=== PATIENT | female | born 1940 | race African-American/Black ===

== ENCOUNTER 2017-11-24 15:39 | Inpatient (IN) | payer OTHER, MEDICAID ==
[~2017-11-24] VITALS: Ht 160 cm; Wt 86.0 kg
[~2017-11-24 15:39] MED LIST: ASPI-1160; BENA20TA77 MT; CLON0.1T PO; DILT90TA2 PO; DIVA500T3 PO; DOXE50CA4 PO; FURO-151; LEVO50TA8 MT; METF500T6 PO; NAPR-681 PO; RANI150T7 PO; RISP2TAB22 PO
[2017-11-24 18:16] LABS: BASOPHILS % 0.6 % (0.0-2.0); EOSINOPHILS % 0.8 % (0.0-5.0); HEMATOCRIT. 28.6 % (36.0-48.0); HEMOGLOBIN. 9.4 g/dL (12.0-16.0); LYMPHOCYTES % 12.4 % (20.0-50.0); MEAN CORPUSCULAR HEMOGLOBIN 29.1 pg (28.0-32.0); MEAN CORPUSCULAR VOLUME 88.2 fL (81.0-99.0); MEAN PLATELET VOLUME 10.5 fl (7.4-10.4); MONOCYTES % 8.4 % (2.0-8.0); NEUTROPHILS % 77.8 % (40.0-76.0); PLATELET 157 x1000/uL (130-400); RED BLOOD CELL COUNT 3.24 mill/uL (4.2-5.4); RED CELL DISTRIBUTION WIDTH 15.1 % (11.6-14.6)
[2017-11-24 18:20] LABS: CHLORIDE 106 mEq/L (98-107)
[2017-11-24] MEDS ORDERED: HYDRALAZINE HCL 50MG TABLET PO ONE (19:45)
[2017-11-24] MEDS: HYDRALAZINE HCL 50MG TABLET PO NR ×5 (20:05→20:37)
[2017-11-24] MEDS ORDERED: IPRATROPIUM/ALBUTEROL 0.5-3(2.5)MG/3ML NEB INH PRN (20:45)
[2017-11-24] MEDS ORDERED: HYDROCODONE/ACETAMINOPHEN 5/325MG TABLET PO PRN (20:45)
[2017-11-24] MEDS ORDERED: DOCUSATE SODIUM 100MG CAPSULE PO PRN (20:45)
[2017-11-24] MEDS ORDERED: ACETAMINOPHEN 325MG TABLET PO PRN (20:45)
[2017-11-24] MEDS ORDERED: ONDANSETRON HCL 4MG/2ML INJ IV PRN (20:45)
[2017-11-24 23:50] VITALS: BP 162/77
[2017-11-25] VITALS: BP 162/77
[2017-11-25] MEDS: SODIUM CHLORIDE 0.45% 1,000 ML IV SCH ×2 (00:42→12:20)
[2017-11-25 01:17] LABS: CREATINE KINASE MB FRACTION 5.7 ng/mL (0.5-3.6)
[2017-11-25 04:00] VITALS: BP_SYST 182; BP_SYST 192; BP_DIAS 97; BP_DIAS 99
[2017-11-25] MEDS: CLONIDINE 0.1MG TABLET PO PRN (05:12)
[2017-11-25 06:24] LABS: BASOPHILS % 0.9 % (0.0-2.0); EOSINOPHILS % 2.4 % (0.0-5.0); HEMOGLOBIN. 9.7 g/dL (12.0-16.0); LYMPHOCYTES % 19.3 % (20.0-50.0); MEAN CORPUSCULAR HEMOGLOBIN 29.5 pg (28.0-32.0); MEAN CORPUSCULAR VOLUME 87.7 fL (81.0-99.0); MEAN PLATELET VOLUME 10.7 fl (7.4-10.4); MONOCYTES % 10.6 % (2.0-8.0); NEUTROPHILS % 66.8 % (40.0-76.0); PLATELET 170 x1000/uL (130-400); RED BLOOD CELL COUNT 3.31 mill/uL (4.2-5.4); RED CELL DISTRIBUTION WIDTH 15.2 % (11.6-14.6)
[2017-11-25] MEDS ORDERED: FENTANYL CITRATE/PF 50MCG/ML 2ML VIAL ONE (07:40)
[2017-11-25 07:54] VITALS: BP 176/88
[2017-11-25 07:55] VITALS: BP 178/87
[2017-11-25 08:10] LABS: CREATINE KINASE MB FRACTION 5.4 ng/mL (0.5-3.6)
[2017-11-25] MEDS: CLONIDINE 0.1MG TABLET PO SCH ×2 (08:43→21:21)
[2017-11-25] MEDS: HEPARIN 5000 UNITS/ML VIAL SUBCUT SCH ×2 (08:43→21:21)
[2017-11-25] MEDS: RISPERIDONE 1MG TABLET PO SCH ×2 (08:44→21:21)
[2017-11-25] MEDS: DILTIAZEM HCL 90MG TABLET PO SCH ×3 (08:44→21:28)
[2017-11-25] MEDS: LEVOTHYROXINE SODIUM 50MCG TABLET PO SCH (08:44)
[2017-11-25] MEDS: DIVALPROEX SODIUM 500MG DR TABLET PO SCH ×2 (08:47→18:00)
[2017-11-25 11:52] VITALS: BP 154/73
[2017-11-25 14:26] LABS: CLARITY URINE CLOUDY (CLEAR); COLOR URINE YELLOW (YELLOW); KETONES URINE NEGATIVE (NEGATIVE); LEUKOCYTE ESTERASE URINE TRACE (NEGATIVE); NITRITE URINE NEGATIVE (NEGATIVE); OCCULT BLOOD URINE NEGATIVE (NEGATIVE); PROTEIN URINE NEGATIVE (NEGATIVE); SPECIFIC GRAVITY URINE 1.009 (1.005-1.030); UROBILINOGEN URINE 0.2 E.U./dL (0.2-1.0)
[2017-11-25] MEDS ORDERED: LORAZEPAM 2MG/ML CPJ IV PRN (14:30)
[2017-11-25] MEDS ORDERED: HYDROCODONE/ACETAMINOPHEN 10/325MG TABLET PO PRN (14:30)
[2017-11-25] MEDS ORDERED: ACETAMINOPHEN 650MG SUPP PR PRN (14:30)
[2017-11-25] MEDS ORDERED: ACETAMINOPHEN 650MG/20.3ML UDC GT PRN (14:30)
[2017-11-25] MEDS ORDERED: MAGNESIUM/ALUMINUM HYDROXIDE/SIMETHICONE 30ML UDC PO PRN (14:30)
[2017-11-25] MEDS ORDERED: ONDANSETRON HCL 4MG/2ML INJ IV PRN (14:30)
[2017-11-25] MEDS ORDERED: HYDROCODONE/ACETAMINOPHEN 5/325MG TABLET PO PRN (14:30)
[2017-11-25] MEDS ORDERED: DEXTROSE 50% WATER 50ML SYRINGE IV PRN (14:30)
[2017-11-25] MEDS ORDERED: ACETAMINOPHEN 325MG TABLET PO PRN (14:30)
[2017-11-25] MEDS ORDERED: LEVOTHYROXINE SODIUM 50MCG TABLET PO SCH (14:45)
[2017-11-25 14:55] LABS: BG BASE EXCESS 0.9 mmol/L (-2.0-2.0); BG CARBOXYHEMOGLOBIN 0.2 % (0.5-1.5); BG DEOXYHEMOGLOBIN 6.7 % (0.0-5.0); BG FRACTION INSPIRED OXYGEN 21; BG HCO3 ACT 25.4 mmol/L (22.0-26.0); BG METHEMOGLOBIN 0.4 % (0.0-1.5); BG OXYGEN SATURATION 93.3 % (92.0-98.5); BG OXYHEMOGLOBIN 92.7 % (94.0-97.0); BG PCO2 40.1 mmHg (35.0-45.0); BG PH 7.419 (7.350-7.450); BG PO2 71.3 mmHg (75.0-100.0); BG SAMPLE SITE LEFT BRACHIAL; BG TOTAL HEMOGLOBIN 10.6 g/dL (12.0-18.0); BG VENT MODE ROOM AIR
[2017-11-25 15:04] LABS: *AMPHETAMINES SCREEN URINE NEGATIVE (NEGATIVE); *BARBITURATES SCREEN URINE NEGATIVE (NEGATIVE); *BENZODIAZEPINES SCREEN URINE NEGATIVE (NEGATIVE)
[2017-11-25 15:05] LABS: *COCAINE SCREEN URINE NEGATIVE (NEGATIVE); CANNABINOID URINE SCREEN NEGATIVE (NEGATIVE); METHADONE URINE SCREEN NEGATIVE (NEGATIVE); OPIATES URINE SCREEN NEGATIVE (NEGATIVE)
[2017-11-25 15:06] LABS: PHENCYCLIDINE URINE SCREEN NEGATIVE (NEGATIVE)
[2017-11-25] MEDS ORDERED: ASPI-1159 MT (15:28)
[2017-11-25 16:08] VITALS: BP 157/72
[2017-11-25] MEDS: INSULIN LISPRO 100 UNITS/ML SUBCUT SCH ×2 (17:35→21:24)
[2017-11-25] MEDS: BLOOD SUGAR DIAGNOSTIC STRIP TEST SCH ×2 (17:35→21:24)
[2017-11-25] MEDS: ASPIRIN 81MG TABLET PO SCH (18:00)
[2017-11-26] VITALS (10 sets, daily range): BP systolic 122–173; BP diastolic 67–99
[2017-11-26 00:39] LABS: CREATINE KINASE MB FRACTION 2.4 ng/mL (0.5-3.6)
[2017-11-26] MEDS: SODIUM CHLORIDE 0.45% 1,000 ML IV SCH ×2 (02:47→14:25)
[2017-11-26] MEDS: DILTIAZEM HCL 90MG TABLET PO SCH ×3 (06:36→21:14)
[2017-11-26] MEDS: LEVOTHYROXINE SODIUM 50MCG TABLET PO SCH (06:36)
[2017-11-26] MEDS: BLOOD SUGAR DIAGNOSTIC STRIP TEST SCH ×4 (07:20→21:22)
[2017-11-26] MEDS: INSULIN LISPRO 100 UNITS/ML SUBCUT SCH ×4 (07:50→21:00)
[2017-11-26 08:08] LABS: BASOPHILS % 0.6 % (0.0-2.0); HEMATOCRIT. 28.2 % (36.0-48.0); HEMOGLOBIN. 9.6 g/dL (12.0-16.0); LYMPHOCYTES % 21.8 % (20.0-50.0); MEAN CORPUSCULAR HEMOGLOBIN 29.4 pg (28.0-32.0); MEAN CORPUSCULAR VOLUME 86.8 fL (81.0-99.0); MEAN PLATELET VOLUME 10.4 fl (7.4-10.4); MONOCYTES % 9.7 % (2.0-8.0); NEUTROPHILS % 64.9 % (40.0-76.0); PLATELET 151 x1000/uL (130-400); RED BLOOD CELL COUNT 3.25 mill/uL (4.2-5.4); RED CELL DISTRIBUTION WIDTH 15.2 % (11.6-14.6)
[2017-11-26 09:41] LABS: AMMONIA 25 uMol/L (<32)
[2017-11-26 09:58] LABS: PHOSPHORUS 3.2 mg/dL (2.5-4.9)
[2017-11-26] MEDS: DIVALPROEX SODIUM 500MG DR TABLET PO SCH ×2 (10:21→19:14)
[2017-11-26] MEDS: HEPARIN 5000 UNITS/ML VIAL SUBCUT SCH ×2 (10:21→21:15)
[2017-11-26] MEDS: RISPERIDONE 1MG TABLET PO SCH ×2 (10:21→21:13)
[2017-11-26] MEDS: CLONIDINE 0.1MG TABLET PO SCH ×2 (10:22→21:14)
[2017-11-26] MEDS: ASPIRIN 81MG TABLET PO SCH (10:22)
[2017-11-26 12:37] LABS: T4 FREE 1.23 ng/dL (0.76-1.46)
[2017-11-26] MEDS ORDERED: SODIUM CHLORIDE 0.9% 1,000 ML IV SCH (15:15)
[2017-11-26 17:31] LABS: CREATINE KINASE MB FRACTION 2.2 ng/mL (0.5-3.6)
[2017-11-26] MEDS: CARVEDILOL 3.125 MG TABLET PO SCH (21:14)
[2017-11-27] VITALS (10 sets, daily range): BP systolic 122–159; BP diastolic 60–77
[2017-11-27 01:26] LABS: CREATINE KINASE MB FRACTION 1.7 ng/mL (0.5-3.6)
[2017-11-27] MEDS: DILTIAZEM HCL 90MG TABLET PO SCH ×3 (05:47→22:00)
[2017-11-27] MEDS: LEVOTHYROXINE SODIUM 50MCG TABLET PO SCH (05:47)
[2017-11-27] MEDS: INSULIN LISPRO 100 UNITS/ML SUBCUT SCH ×4 (05:51→21:00)
[2017-11-27] MEDS: BLOOD SUGAR DIAGNOSTIC STRIP TEST SCH ×4 (05:51→21:00)
[2017-11-27] MEDS: ASPIRIN 81MG TABLET PO SCH (10:00)
[2017-11-27] MEDS: CLONIDINE 0.1MG TABLET PO SCH ×2 (10:01→21:52)
[2017-11-27] MEDS: CARVEDILOL 3.125 MG TABLET PO SCH ×2 (10:02→21:53)
[2017-11-27] MEDS: DIVALPROEX SODIUM 500MG DR TABLET PO SCH ×2 (10:02→17:23)
[2017-11-27] MEDS: RISPERIDONE 1MG TABLET PO SCH ×2 (10:02→21:53)
[2017-11-27] MEDS: HEPARIN 5000 UNITS/ML VIAL SUBCUT SCH ×2 (10:05→21:59)
[2017-11-27 18:20] LABS: AMMONIA 20 uMol/L (<32)
[2017-11-27 18:21] LABS: CREATINE KINASE MB FRACTION 1.1 ng/mL (0.5-3.6)
[2017-11-28] VITALS (10 sets, daily range): BP systolic 142–176; BP diastolic 62–77
[2017-11-28] MEDS: BLOOD SUGAR DIAGNOSTIC STRIP TEST SCH ×4 (07:20→20:57)
[2017-11-28 07:29] LABS: AMMONIA 11 uMol/L (<32)
[2017-11-28 07:41] LABS: BASOPHILS % 0.3 % (0.0-2.0); EOSINOPHILS % 2.5 % (0.0-5.0); HEMATOCRIT. 28.8 % (36.0-48.0); HEMOGLOBIN. 9.6 g/dL (12.0-16.0); LYMPHOCYTES % 20.1 % (20.0-50.0); MEAN CORPUSCULAR HEMOGLOBIN 28.9 pg (28.0-32.0); MEAN CORPUSCULAR VOLUME 86.9 fL (81.0-99.0); MEAN PLATELET VOLUME 10.8 fl (7.4-10.4); MONOCYTES % 10.1 % (2.0-8.0); PLATELET 159 x1000/uL (130-400); RED BLOOD CELL COUNT 3.31 mill/uL (4.2-5.4); RED CELL DISTRIBUTION WIDTH 15.7 % (11.6-14.6)
[2017-11-28] MEDS: INSULIN LISPRO 100 UNITS/ML SUBCUT SCH ×4 (07:50→20:58)
[2017-11-28] MEDS: DIVALPROEX SODIUM 500MG DR TABLET PO SCH ×2 (10:01→17:22)
[2017-11-28] MEDS: RISPERIDONE 1MG TABLET PO SCH ×2 (10:01→20:57)
[2017-11-28] MEDS: LEVOTHYROXINE SODIUM 50MCG TABLET PO SCH (10:02)
[2017-11-28] MEDS: CLONIDINE 0.1MG TABLET PO SCH ×2 (10:02→20:57)
[2017-11-28] MEDS: CARVEDILOL 3.125 MG TABLET PO SCH ×2 (10:03→20:57)
[2017-11-28] MEDS: ASPIRIN 81MG TABLET PO SCH (10:03)
[2017-11-28] MEDS: HEPARIN 5000 UNITS/ML VIAL SUBCUT SCH ×2 (10:05→20:57)
[2017-11-28] MEDS: DEXT 5%/0.45% NACL 1000ML 1,000 ML IV SCH (15:41)
[2017-11-28] MEDS: DILTIAZEM HCL 90MG TABLET PO SCH ×2 (15:53→20:57)
[2017-11-29] VITALS: BP_SYST 126; BP_SYST 150; BP_DIAS 64; BP_DIAS 70
[2017-11-29 04:00] VITALS: BP 110/60
[2017-11-29] MEDS: DEXT 5%/0.45% NACL 1000ML 1,000 ML IV SCH ×2 (06:58→22:27)
[2017-11-29] MEDS: DILTIAZEM HCL 90MG TABLET PO SCH ×3 (06:59→21:33)
[2017-11-29] MEDS: BLOOD SUGAR DIAGNOSTIC STRIP TEST SCH ×4 (06:59→21:34)
[2017-11-29] MEDS: LEVOTHYROXINE SODIUM 50MCG TABLET PO SCH (06:59)
[2017-11-29] MEDS: INSULIN LISPRO 100 UNITS/ML SUBCUT SCH ×4 (07:50→21:45)
[2017-11-29 08:00] VITALS: BP 171/88
[2017-11-29] MEDS: CARVEDILOL 3.125 MG TABLET PO SCH ×2 (08:32→21:33)
[2017-11-29] MEDS: DIVALPROEX SODIUM 500MG DR TABLET PO SCH ×2 (08:32→18:04)
[2017-11-29] MEDS: ASPIRIN 81MG TABLET PO SCH (08:32)
[2017-11-29] MEDS: CLONIDINE 0.1MG TABLET PO SCH ×2 (08:32→21:34)
[2017-11-29] MEDS: RISPERIDONE 1MG TABLET PO SCH ×2 (08:35→21:34)
[2017-11-29] MEDS: HEPARIN 5000 UNITS/ML VIAL SUBCUT SCH ×2 (08:39→21:37)
[2017-11-29 10:31] LABS: BASOPHILS % 0.3 % (0.0-2.0); EOSINOPHILS % 2.3 % (0.0-5.0); HEMATOCRIT. 30.2 % (36.0-48.0); LYMPHOCYTES % 19.1 % (20.0-50.0); MEAN CORPUSCULAR HEMOGLOBIN 29.3 pg (28.0-32.0); MEAN CORPUSCULAR VOLUME 88.3 fL (81.0-99.0); MEAN PLATELET VOLUME 10.9 fl (7.4-10.4); NEUTROPHILS % 65.3 % (40.0-76.0); PLATELET 165 x1000/uL (130-400); RED BLOOD CELL COUNT 3.42 mill/uL (4.2-5.4); RED CELL DISTRIBUTION WIDTH 15.4 % (11.6-14.6)
[2017-11-29 11:20] LABS: PHOSPHORUS 3.2 mg/dL (2.5-4.9)
[2017-11-29 12:00] VITALS: BP_SYST 161; BP_SYST 163; BP_SYST 167; BP_DIAS 70; BP_DIAS 86; BP_DIAS 87
[2017-11-29 16:00] VITALS: BP 176/71
[2017-11-29 19:50] VITALS: BP 168/71
[2017-11-29] MEDS ORDERED: MAGNESIUM SULFATE 2 GM in SODIUM CHLORIDE 0.9% 100 ML IV NR (20:00)
[2017-11-30] VITALS (9 sets, daily range): BP systolic 132–175; BP diastolic 67–87
[2017-11-30] MEDS: LEVOTHYROXINE SODIUM 50MCG TABLET PO SCH (06:25)
[2017-11-30] MEDS: DILTIAZEM HCL 90MG TABLET PO SCH ×2 (06:26→14:55)
[2017-11-30] MEDS: BLOOD SUGAR DIAGNOSTIC STRIP TEST SCH ×3 (06:26→17:09)
[2017-11-30] MEDS: INSULIN LISPRO 100 UNITS/ML SUBCUT SCH ×3 (07:16→17:09)
[2017-11-30] MEDS: HEPARIN 5000 UNITS/ML VIAL SUBCUT SCH (07:42)
[2017-11-30] MEDS: ASPIRIN 81MG TABLET PO SCH (07:42)
[2017-11-30] MEDS: CARVEDILOL 3.125 MG TABLET PO SCH (07:42)
[2017-11-30] MEDS: CLONIDINE 0.1MG TABLET PO SCH (07:43)
[2017-11-30] MEDS: DIVALPROEX SODIUM 500MG DR TABLET PO SCH ×2 (07:43→17:06)
[2017-11-30] MEDS: RISPERIDONE 1MG TABLET PO SCH (07:43)
[2017-11-30 09:06] LABS: COMPLEMENT C3 101 mg/dL (82-167)
[2017-11-30 11:17] LABS: BASOPHILS % 0.5 % (0.0-2.0); EOSINOPHILS % 3.2 % (0.0-5.0); HEMATOCRIT. 26.3 % (36.0-48.0); LYMPHOCYTES % 19.5 % (20.0-50.0); MEAN CORPUSCULAR HEMOGLOBIN 29.7 pg (28.0-32.0); MEAN CORPUSCULAR VOLUME 87.1 fL (81.0-99.0); MEAN PLATELET VOLUME 10.9 fl (7.4-10.4); MONOCYTES % 13.3 % (2.0-8.0); NEUTROPHILS % 63.5 % (40.0-76.0); PLATELET 162 x1000/uL (130-400); RED BLOOD CELL COUNT 3.02 mill/uL (4.2-5.4); RED CELL DISTRIBUTION WIDTH 15.2 % (11.6-14.6)
[2017-11-30 12:49] LABS: PHOSPHORUS 2.9 mg/dL (2.5-4.9)
[2017-11-30] MEDS ORDERED: DILT90TA2 PO (14:19)
[2017-11-30] MEDS ORDERED: ASPI-1160 PO (14:19)
[2017-11-30] MEDS ORDERED: DIVA-18 PO (14:19)
[2017-11-30] MEDS ORDERED: COR3 PO (14:19)
[2017-11-30] MEDS ORDERED: RISP1 PO (14:19)
[2017-11-30] MEDS ORDERED: LEVO50TA8 PO (14:19)
[2017-11-30] MEDS: CLONIDINE 0.1MG TABLET PO PRN (17:06)
[2017-11-30 17:10] LABS: ANTI-NUCLEAR ANTIBODIES DIRECT Negative (Negative)
== END 2017-11-30 19:27 | disposition home health service (06) | DRG 70 ==
LOC: ER 15:39 → 6WST 18:57 → EDBEDREQ 19:03 → EDBEDREQTM 19:03 → ENRESERV 21:05
PROVIDERS: ADMIT Internal Medicine; ATTEND Internal Medicine
DX: G93.41 Metabolic encephalopathy (principal); N17.0 Acute kidney failure with tubular necrosis; E46 Unspecified protein-calorie malnutrition; M62.82 Rhabdomyolysis; J98.11 Atelectasis; G90.8 Other disorders of autonomic nervous system; N18.9 Chronic kidney disease, unspecified; J44.9 Chronic obstructive pulmonary disease, unspecified; D64.9 Anemia, unspecified; E03.9 Hypothyroidism, unspecified; E11.22 Type 2 diabetes mellitus with diabetic chronic kidney disease; F41.9 Anxiety disorder, unspecified; E78.5 Hyperlipidemia, unspecified; G20 Parkinson's disease; G40.909 Epilepsy, unspecified, not intractable, without status epilepticus; I12.9 Hypertensive chronic kidney disease with stage 1 through stage 4 chronic kidney disease, or unspecified chronic kidney disease; I25.10 Atherosclerotic heart disease of native coronary artery without angina pectoris; Z79.84 Long term (current) use of oral hypoglycemic drugs; Z86.73 Personal history of transient ischemic attack (TIA), and cerebral infarction without residual deficits; Z79.82 Long term (current) use of aspirin; Z79.899 Other long term (current) drug therapy; Z68.33 Body mass index [BMI] 33.0-33.9, adult
CPT/HCPCS: 36415; 36600; 70450; 70551; 71045; 76770; 78582; 80048; 80053; 80061; 80165; 80305; 81003; 82140; 82375; 82550; 82553; 82805; 82962; 83036; 83735; 83880; 84100; 84439; 84443; 84484; 85025; 85379; 86038; 86160; 92610; 93005; 93306; 93880; 93970; 97116; 97162; 97166; 97530; 97535; 99285; A9558; C1893; J1644; J1815; J3010; J3475; J3490; J7050

== ENCOUNTER 2018-01-11 15:22 | Inpatient (IN) | payer OTHER, MEDICAID ==
[~2018-01-11] VITALS: Ht 157.5 cm; Wt 71.2 kg
[~2018-01-11 15:22] MED LIST changes: -ASPI-1160; +ASPI-1160 PO; -BENA20TA77 MT; -CLON0.1T PO; +COR3 PO; +DIVA-18 PO; -DIVA500T3 PO; -DOXE50CA4 PO; -FURO-151; -LEVO50TA8 MT; +LEVO50TA8 PO; -METF500T6 PO; -NAPR-681 PO; -RANI150T7 PO; +RISP1 PO; -RISP2TAB22 PO
[2018-01-11] MEDS ORDERED: SODIUM CHLORIDE 0.9% 1,000 ML IV ONE (15:35)
[2018-01-11 16:22] LABS: BG BASE EXCESS -2.2 mmol/L (-2.0-2.0); BG DEOXYHEMOGLOBIN 5.6 % (0.0-5.0); BG FRACTION INSPIRED OXYGEN 21; BG HCO3 ACT 22.1 mmol/L (22.0-26.0); BG METHEMOGLOBIN 0.6 % (0.0-1.5); BG OXYGEN SATURATION 94.4 % (92.0-98.5); BG OXYHEMOGLOBIN 93.8 % (94.0-97.0); BG PCO2 36.2 mmHg (35.0-45.0); BG PH 7.403 (7.350-7.450); BG SAMPLE SITE RIGHT BRACHIAL; BG TOTAL HEMOGLOBIN 11.8 g/dL (12.0-18.0); BG VENT MODE ROOM AIR
[2018-01-11 16:55] LABS: BASOPHILS % 0.7 % (0.0-2.0); EOSINOPHILS % 1.5 % (0.0-5.0); HEMATOCRIT. 34.4 % (36.0-48.0); HEMOGLOBIN. 11.1 g/dL (12.0-16.0); MEAN CORPUSCULAR HEMOGLOBIN 28.9 pg (28.0-32.0); MEAN CORPUSCULAR VOLUME 89.5 fL (81.0-99.0); MEAN PLATELET VOLUME 10.5 fl (7.4-10.4); NEUTROPHILS % 64.8 % (40.0-76.0); PLATELET 230 x1000/uL (130-400); RED BLOOD CELL COUNT 3.84 mill/uL (4.2-5.4); RED CELL DISTRIBUTION WIDTH 15.7 % (11.6-14.6)
[2018-01-11 17:01] LABS: INR 1.1; PROTHROMBIN TIME 10.7 sec (9.1-11.1)
[2018-01-11 17:05] LABS: CHLORIDE 111 mEq/L (98-107)
[2018-01-11 17:09] LABS: CLARITY URINE TURBID (CLEAR); COLOR URINE DARK YELLOW (YELLOW); KETONES URINE TRACE (NEGATIVE); LEUKOCYTE ESTERASE URINE 3+ (NEGATIVE); NITRITE URINE POSITIVE (NEGATIVE); OCCULT BLOOD URINE 3+ (NEGATIVE); PH URINE 5.5 (4.5-8.0); PROTEIN URINE 2+ (NEGATIVE); SPECIFIC GRAVITY URINE 1.016 (1.005-1.030); UROBILINOGEN URINE 0.2 E.U./dL (0.2-1.0)
[2018-01-11] MEDS ORDERED: CEFTRIAXONE 2 G PREMIX 50 ML IV ONE (18:45)
[2018-01-11] MEDS: HYDRALAZINE 20MG/ML VIAL IV PRN (23:24)
[2018-01-12] VITALS (10 sets, daily range): BP systolic 108–200; BP diastolic 52–97
[2018-01-12] MEDS ORDERED: HYDROCODONE/ACETAMINOPHEN 5/325MG TABLET PO PRN (01:00)
[2018-01-12] MEDS ORDERED: DEXTROSE 50% WATER 50ML SYRINGE IV PRN (01:00)
[2018-01-12] MEDS ORDERED: GUAIFENESIN 200MG/10ML SUGAR FREE UDC PO PRN (01:00)
[2018-01-12] MEDS ORDERED: ONDANSETRON HCL 4MG/2ML INJ IV PRN (01:00)
[2018-01-12] MEDS ORDERED: IPRATROPIUM/ALBUTEROL 0.5-3(2.5)MG/3ML NEB HHN PRN (01:00)
[2018-01-12] MEDS ORDERED: ACETAMINOPHEN 325MG TABLET PO PRN (01:00)
[2018-01-12] MEDS ORDERED: CLONIDINE 0.1MG TABLET PO PRN (01:30)
[2018-01-12] MEDS ORDERED: MAGN30OR PO (01:39)
[2018-01-12] MEDS ORDERED: GUAI10LI9 PO (01:39)
[2018-01-12] MEDS ORDERED: ASA5EC PO (01:39)
[2018-01-12] MEDS ORDERED: ONDA4SOL2 PO (01:39)
[2018-01-12] MEDS ORDERED: FAMO-135 PO (01:39)
[2018-01-12] MEDS ORDERED: CLON-457 PO (01:39)
[2018-01-12] MEDS ORDERED: DOCU-150 PO (01:39)
[2018-01-12] MEDS ORDERED: CLON0.2T PO (01:39)
[2018-01-12] MEDS ORDERED: HYDR-4134 PO (01:39)
[2018-01-12] MEDS ORDERED: ACET-2178 PO (01:39)
[2018-01-12] MEDS ORDERED: TRAM50TA3 PO (01:39)
[2018-01-12] MEDS ORDERED: NITR0.4T SL (01:39)
[2018-01-12] MEDS ORDERED: LISI-604 PO (01:39)
[2018-01-12] MEDS ORDERED: OR220 PO (01:39)
[2018-01-12] MEDS: BLOOD SUGAR DIAGNOSTIC STRIP TEST SCH ×4 (06:22→20:44)
[2018-01-12 06:43] LABS: BASOPHILS % 0.4 % (0.0-2.0); EOSINOPHILS % 0.2 % (0.0-5.0); HEMATOCRIT. 33.3 % (36.0-48.0); LYMPHOCYTES % 12.3 % (20.0-50.0); MEAN CORPUSCULAR HEMOGLOBIN 29.3 pg (28.0-32.0); MEAN CORPUSCULAR VOLUME 88.8 fL (81.0-99.0); MEAN PLATELET VOLUME 10.6 fl (7.4-10.4); MONOCYTES % 5.1 % (2.0-8.0); PLATELET 241 x1000/uL (130-400); RED BLOOD CELL COUNT 3.75 mill/uL (4.2-5.4); RED CELL DISTRIBUTION WIDTH 15.1 % (11.6-14.6)
[2018-01-12] MEDS: INSULIN LISPRO 100 UNITS/ML SUBCUT SCH ×4 (08:02→20:44)
[2018-01-12] MEDS: HYDRALAZINE 20MG/ML VIAL IV PRN ×2 (08:19→18:44)
[2018-01-12] MEDS ORDERED: HYDRALAZINE HCL 25MG TABLET PO SCH (09:00)
[2018-01-12] MEDS: FAMOTIDINE 20MG TABLET PO SCH (09:00)
[2018-01-12] MEDS ORDERED: LISINOPRIL 20MG TABLET PO SCH (09:00)
[2018-01-12] MEDS: ZINC SULFATE 220 MG ( 50 ) CAPSULE PO SCH (11:44)
[2018-01-12] MEDS: CARVEDILOL 3.125 MG TABLET PO SCH ×2 (11:44→20:44)
[2018-01-12] MEDS: DOCUSATE SODIUM 100MG CAPSULE PO SCH ×2 (11:45→18:44)
[2018-01-12] MEDS: ASPIRIN 325MG EC TABLET PO SCH (11:45)
[2018-01-12] MEDS: AMLODIPINE 10MG TABLET PO SCH (11:45)
[2018-01-12] MEDS: HYDRALAZINE HCL 50MG TABLET PO SCH ×2 (11:45→20:44)
[2018-01-12] MEDS: LEVOTHYROXINE SODIUM 50MCG TABLET PO SCH (11:47)
[2018-01-12] MEDS: CEFTRIAXONE 1 G PREMIX 50 ML IV SCH (20:37)
[2018-01-12] MEDS: ENOXAPARIN 30MG/0.3ML SYR SUBCUT SCH (20:44)
[2018-01-13] VITALS (7 sets, daily range): BP systolic 133–211; BP diastolic 61–93
[2018-01-13 05:15] LABS: BASOPHILS % 0.6 % (0.0-2.0); EOSINOPHILS % 0.5 % (0.0-5.0); HEMATOCRIT. 35.5 % (36.0-48.0); HEMOGLOBIN. 11.7 g/dL (12.0-16.0); LYMPHOCYTES % 16.3 % (20.0-50.0); MEAN CORPUSCULAR HEMOGLOBIN 29.4 pg (28.0-32.0); MEAN CORPUSCULAR VOLUME 89.5 fL (81.0-99.0); MEAN PLATELET VOLUME 10.6 fl (7.4-10.4); MONOCYTES % 8.6 % (2.0-8.0); PLATELET 263 x1000/uL (130-400); RED BLOOD CELL COUNT 3.97 mill/uL (4.2-5.4); RED CELL DISTRIBUTION WIDTH 15.5 % (11.6-14.6)
[2018-01-13] MEDS: HYDRALAZINE 20MG/ML VIAL IV PRN ×2 (05:31→23:00)
[2018-01-13] MEDS: BLOOD SUGAR DIAGNOSTIC STRIP TEST SCH ×4 (07:40→20:48)
[2018-01-13] MEDS: INSULIN LISPRO 100 UNITS/ML SUBCUT SCH ×4 (08:10→21:31)
[2018-01-13] MEDS: LEVOTHYROXINE SODIUM 50MCG TABLET PO SCH (08:40)
[2018-01-13] MEDS: DOCUSATE SODIUM 100MG CAPSULE PO SCH ×2 (08:58→17:49)
[2018-01-13] MEDS: ZINC SULFATE 220 MG ( 50 ) CAPSULE PO SCH (08:58)
[2018-01-13] MEDS: CARVEDILOL 3.125 MG TABLET PO SCH ×2 (08:59→20:39)
[2018-01-13] MEDS: HYDRALAZINE HCL 50MG TABLET PO SCH ×2 (09:00→20:37)
[2018-01-13] MEDS: ASPIRIN 325MG EC TABLET PO SCH (09:00)
[2018-01-13] MEDS: FAMOTIDINE 20MG TABLET PO SCH (09:00)
[2018-01-13] MEDS: AMLODIPINE 10MG TABLET PO SCH (09:00)
[2018-01-13] MEDS: CEFTRIAXONE 1 G PREMIX 50 ML IV SCH (17:49)
[2018-01-13] MEDS: ENOXAPARIN 30MG/0.3ML SYR SUBCUT SCH (20:41)
[2018-01-13] MEDS ORDERED: HYDRALAZINE 20MG/ML VIAL IV PRN (22:45)
[2018-01-13] MEDS: DEXT 5%/0.45% NACL KCL 20MEQ/L 1,000 ML IV SCH (23:50)
[2018-01-14] VITALS: BP 136/59
[2018-01-14 04:00] VITALS: BP 167/84
[2018-01-14] MEDS: BLOOD SUGAR DIAGNOSTIC STRIP TEST SCH ×4 (06:43→21:00)
[2018-01-14 07:50] LABS: BASOPHILS % 0.6 % (0.0-2.0); EOSINOPHILS % 0.8 % (0.0-5.0); HEMOGLOBIN. 11.1 g/dL (12.0-16.0); LYMPHOCYTES % 17.9 % (20.0-50.0); MEAN CORPUSCULAR HEMOGLOBIN 29.2 pg (28.0-32.0); MEAN CORPUSCULAR VOLUME 89.6 fL (81.0-99.0); MEAN PLATELET VOLUME 11.7 fl (7.4-10.4); MONOCYTES % 8.5 % (2.0-8.0); NEUTROPHILS % 72.2 % (40.0-76.0); PLATELET 230 x1000/uL (130-400); RED CELL DISTRIBUTION WIDTH 15.8 % (11.6-14.6)
[2018-01-14 08:00] VITALS: BP 186/88
[2018-01-14] MEDS: DOCUSATE SODIUM 100MG CAPSULE PO SCH ×2 (08:21→17:00)
[2018-01-14] MEDS: HYDRALAZINE HCL 50MG TABLET PO SCH ×2 (08:21→22:28)
[2018-01-14] MEDS: ASPIRIN 325MG EC TABLET PO SCH (08:21)
[2018-01-14] MEDS: AMLODIPINE 10MG TABLET PO SCH (08:21)
[2018-01-14] MEDS: CARVEDILOL 3.125 MG TABLET PO SCH ×2 (08:21→22:12)
[2018-01-14] MEDS: ZINC SULFATE 220 MG ( 50 ) CAPSULE PO SCH (08:24)
[2018-01-14] MEDS: FAMOTIDINE 20MG TABLET PO SCH (08:24)
[2018-01-14] MEDS: LEVOTHYROXINE SODIUM 50MCG TABLET PO SCH (08:30)
[2018-01-14] MEDS: INSULIN LISPRO 100 UNITS/ML SUBCUT SCH ×4 (08:30→22:13)
[2018-01-14 12:00] VITALS: BP 159/73
[2018-01-14] MEDS: DEXT 5%/0.45% NACL KCL 20MEQ/L 1,000 ML IV SCH (13:30)
[2018-01-14 16:00] VITALS: BP 151/67
[2018-01-14] MEDS: ENOXAPARIN 30MG/0.3ML SYR SUBCUT SCH (22:16)
[2018-01-15] VITALS (7 sets, daily range): BP systolic 141–165; BP diastolic 61–91
[2018-01-15 07:15] LABS: BASOPHILS % 0.7 % (0.0-2.0); EOSINOPHILS % 1.8 % (0.0-5.0); HEMATOCRIT. 33.7 % (36.0-48.0); HEMOGLOBIN. 10.9 g/dL (12.0-16.0); LYMPHOCYTES % 27.7 % (20.0-50.0); MEAN CORPUSCULAR VOLUME 89.3 fL (81.0-99.0); MONOCYTES % 9.4 % (2.0-8.0); NEUTROPHILS % 60.4 % (40.0-76.0); PLATELET 224 x1000/uL (130-400); RED BLOOD CELL COUNT 3.77 mill/uL (4.2-5.4); RED CELL DISTRIBUTION WIDTH 15.5 % (11.6-14.6)
[2018-01-15] MEDS: BLOOD SUGAR DIAGNOSTIC STRIP TEST SCH ×4 (07:59→20:51)
[2018-01-15] MEDS: INSULIN LISPRO 100 UNITS/ML SUBCUT SCH ×4 (08:10→20:49)
[2018-01-15] MEDS: ASPIRIN 325MG EC TABLET PO SCH (09:31)
[2018-01-15] MEDS: ZINC SULFATE 220 MG ( 50 ) CAPSULE PO SCH (09:31)
[2018-01-15] MEDS: FAMOTIDINE 20MG TABLET PO SCH (09:31)
[2018-01-15] MEDS: CARVEDILOL 3.125 MG TABLET PO SCH ×2 (09:31→20:49)
[2018-01-15] MEDS: AMLODIPINE 10MG TABLET PO SCH (09:31)
[2018-01-15] MEDS: HYDRALAZINE HCL 50MG TABLET PO SCH ×2 (09:31→20:49)
[2018-01-15] MEDS: DOCUSATE SODIUM 100MG CAPSULE PO SCH ×2 (09:31→17:00)
[2018-01-15] MEDS: LEVOTHYROXINE SODIUM 50MCG TABLET PO SCH (09:34)
[2018-01-15] MEDS ORDERED: AMIKACIN 500MG in SODIUM CHLORIDE 0.9% 100ML IV SCH (13:00)
[2018-01-15] MEDS: ENOXAPARIN 30MG/0.3ML SYR SUBCUT SCH (20:53)
[2018-01-16] VITALS: BP 143/80
[2018-01-16 04:00] VITALS: BP 150/82
[2018-01-16 06:55] LABS: BASOPHILS % 0.8 % (0.0-2.0); EOSINOPHILS % 1.8 % (0.0-5.0); HEMATOCRIT. 31.9 % (36.0-48.0); HEMOGLOBIN. 10.5 g/dL (12.0-16.0); LYMPHOCYTES % 23.2 % (20.0-50.0); MEAN CORPUSCULAR HEMOGLOBIN 29.2 pg (28.0-32.0); MEAN CORPUSCULAR VOLUME 88.9 fL (81.0-99.0); MEAN PLATELET VOLUME 11.3 fl (7.4-10.4); NEUTROPHILS % 63.2 % (40.0-76.0); PLATELET 203 x1000/uL (130-400); RED BLOOD CELL COUNT 3.58 mill/uL (4.2-5.4); RED CELL DISTRIBUTION WIDTH 15.4 % (11.6-14.6)
[2018-01-16] MEDS: BLOOD SUGAR DIAGNOSTIC STRIP TEST SCH ×2 (07:51→12:50)
[2018-01-16] MEDS: INSULIN LISPRO 100 UNITS/ML SUBCUT SCH ×2 (07:54→12:52)
[2018-01-16 08:00] VITALS: BP 131/77
[2018-01-16] MEDS: LEVOTHYROXINE SODIUM 50MCG TABLET PO SCH (08:24)
[2018-01-16] MEDS: DOCUSATE SODIUM 100MG CAPSULE PO SCH (08:43)
[2018-01-16] MEDS: AMLODIPINE 10MG TABLET PO SCH (08:43)
[2018-01-16] MEDS: ZINC SULFATE 220 MG ( 50 ) CAPSULE PO SCH (08:43)
[2018-01-16] MEDS: ASPIRIN 325MG EC TABLET PO SCH (08:43)
[2018-01-16] MEDS: CARVEDILOL 3.125 MG TABLET PO SCH (08:44)
[2018-01-16] MEDS: HYDRALAZINE HCL 50MG TABLET PO SCH (08:44)
[2018-01-16] MEDS: FAMOTIDINE 20MG TABLET PO SCH (08:44)
[2018-01-16] MEDS ORDERED: ACETAMINOPHEN 325MG TABLET PO PRN (08:45)
[2018-01-16] MEDS ORDERED: AMIKACIN SULFATE 250 MG in SODIUM CHLORIDE 0.9% 100 ML IV SCH (09:00)
[2018-01-16 12:00] VITALS: BP 144/72
[2018-01-16 15:16] VITALS: BP 144/72
[2018-01-16 16:00] VITALS: BP 149/76
== END 2018-01-16 16:42 | DRG 291 ==
LOC: ER 15:22 → 7WST 21:33 → EDBEDREQ 21:39 → EDBEDREQTM 21:39 → ENRESERV 22:21
PROVIDERS: ADMIT Internal Medicine; ATTEND Internal Medicine
DX: I13.2 Hypertensive heart and chronic kidney disease with heart failure and with stage 5 chronic kidney disease, or end stage renal disease (principal); N18.6 End stage renal disease; I50.43 Acute on chronic combined systolic (congestive) and diastolic (congestive) heart failure; G93.40 Encephalopathy, unspecified; N39.0 Urinary tract infection, site not specified; E87.0 Hyperosmolality and hypernatremia; I24.8 Other forms of acute ischemic heart disease; E44.0 Moderate protein-calorie malnutrition; I42.9 Cardiomyopathy, unspecified; J44.9 Chronic obstructive pulmonary disease, unspecified; E11.22 Type 2 diabetes mellitus with diabetic chronic kidney disease; D63.8 Anemia in other chronic diseases classified elsewhere; E03.9 Hypothyroidism, unspecified; B96.5 Pseudomonas (aeruginosa) (mallei) (pseudomallei) as the cause of diseases classified elsewhere; I36.1 Nonrheumatic tricuspid (valve) insufficiency; E87.8 Other disorders of electrolyte and fluid balance, not elsewhere classified; F03.90 Unspecified dementia, unspecified severity, without behavioral disturbance, psychotic disturbance, mood disturbance, and anxiety; M54.9 Dorsalgia, unspecified; G89.4 Chronic pain syndrome; I27.20 Pulmonary hypertension, unspecified; Z68.28 Body mass index [BMI] 28.0-28.9, adult; Z99.2 Dependence on renal dialysis; Z86.73 Personal history of transient ischemic attack (TIA), and cerebral infarction without residual deficits; Z91.19 Patient's noncompliance with other medical treatment and regimen; Z87.440 Personal history of urinary (tract) infections; Z79.82 Long term (current) use of aspirin; Z79.899 Other long term (current) drug therapy
CPT/HCPCS: 36415; 36600; 70551; 71045; 80048; 80061; 82375; 82805; 82962; 83036; 83605; 84145; 84484; 87077; 87186; 92610; 93005; 96365; 97162; 97166; 97530; 99285; J0278; J0360; J0696; J1650; J1815; J7030; J7040; J7050; A4315

== ENCOUNTER 2018-10-31 06:50 | Emergency (ER) | payer MEDICARE, MEDICAID ==
[~2018-10-31] VITALS: Ht 160 cm; Wt 82.0 kg
[~2018-10-31 06:50] MED LIST changes: +ACET-2178 PO; +ASA5EC PO; -ASPI-1160 PO; +CLON-457 PO; +CLON0.2T PO; -DIVA-18 PO; +DOCU-150 PO; +FAMO-135 PO; +GUAI10LI9 PO; +HYDR-4134 PO; +LISI-604 PO; +MAGN30OR PO; +NITR0.4T SL; +ONDA4SOL2 PO; +OR220 PO; -RISP1 PO; +TRAM50TA3 PO
[2018-10-31] MEDS ORDERED: HYDRALAZINE 20MG/ML VIAL IV ONE ×2 (09:00→10:00)
[2018-10-31 11:26] VITALS: BP 145/106
[2018-10-31 11:31] LABS: BASOPHILS % 0.5 % (0.0-2.0); EOSINOPHILS % 2.5 % (0.0-5.0); HEMATOCRIT. 37.6 % (36.0-48.0); HEMOGLOBIN. 12.4 g/dL (12.0-16.0); MEAN CORPUSCULAR HEMOGLOBIN 27.3 pg (28.0-32.0); MEAN CORPUSCULAR VOLUME 83.1 fL (81.0-99.0); MEAN PLATELET VOLUME 9.8 fl (7.4-10.4); MONOCYTES % 9.5 % (2.0-8.0); NEUTROPHILS % 75.5 % (40.0-76.0); PLATELET 149 x1000/uL (130-400); RED BLOOD CELL COUNT 4.53 mill/uL (4.2-5.4); RED CELL DISTRIBUTION WIDTH 14.5 % (11.6-14.6)
[2018-10-31 11:38] LABS: INR 1.3; PARTIAL THROMBOPLASTIN TIME 25.9 sec (23.4-31.0)
[2018-10-31 11:40] LABS: CHLORIDE 106 mEq/L (98-107)
== END 2018-10-31 16:12 | disposition home or self-care (01) ==
LOC: ER 07:06
DX: I10 Essential (primary) hypertension (principal); F03.90 Unspecified dementia, unspecified severity, without behavioral disturbance, psychotic disturbance, mood disturbance, and anxiety; E11.9 Type 2 diabetes mellitus without complications; Z86.73 Personal history of transient ischemic attack (TIA), and cerebral infarction without residual deficits; Z88.2 Allergy status to sulfonamides; Z79.899 Other long term (current) drug therapy
CPT/HCPCS: 36415; 70450; 71045; 80053; 84484; 85025; 85610; 85730; 93005; 96374; 96376; 99284; J0360

== ENCOUNTER 2019-01-27 13:45 | Inpatient (IN) | payer MEDICARE, MEDICAID ==
[2019-01-27] VITALS (28 sets, daily range): BP systolic 109–212; BP diastolic 58–119
[~2019-01-27] VITALS: Ht 167.6 cm; Wt 94.3 kg
[~2019-01-27 13:45] MED LIST changes: -ACET-2178 PO; -ASA5EC PO; +ASPI325T85 PO; +TOPUD PO
[2019-01-27] MEDS ORDERED: PROPOFOL 10MG/ML 100ML 100 ML IV ONE (14:00)
[2019-01-27] MEDS ORDERED: FENTANYL CITRATE/PF 50MCG/ML 2ML VIAL IV ONE (14:00)
[2019-01-27 14:15] LABS: BASOPHILS % 0.5 % (0.0-2.0); EOSINOPHILS % 1.9 % (0.0-5.0); HEMATOCRIT. 36.2 % (36.0-48.0); HEMOGLOBIN. 11.1 g/dL (12.0-16.0); LYMPHOCYTES % 22.8 % (20.0-50.0); MEAN CORPUSCULAR HEMOGLOBIN 27.9 pg (28.0-32.0); MEAN CORPUSCULAR VOLUME 90.7 fL (81.0-99.0); MEAN PLATELET VOLUME 11.2 fl (7.4-10.4); MONOCYTES % 8.9 % (2.0-8.0); NEUTROPHILS % 65.9 % (40.0-76.0); PLATELET 110 x1000/uL (130-400); RED BLOOD CELL COUNT 3.99 mill/uL (4.2-5.4); RED CELL DISTRIBUTION WIDTH 18.6 % (11.6-14.6)
[2019-01-27 14:20] LABS: BG BASE EXCESS -12.5 mmol/L (-2.0-2.0); BG CARBOXYHEMOGLOBIN 0.3 % (0.5-1.5); BG DEOXYHEMOGLOBIN 0.9 % (0.0-5.0); BG FRACTION INSPIRED OXYGEN 100; BG HCO3 ACT 13.5 mmol/L (22.0-26.0); BG METHEMOGLOBIN 0.3 % (0.0-1.5); BG OXYGEN SATURATION 99.1 % (92.0-98.5); BG OXYHEMOGLOBIN 98.5 % (94.0-97.0); BG PCO2 31.1 mmHg (35.0-45.0); BG PH 7.254 (7.350-7.450); BG SAMPLE SITE RIGHT BRACHIAL; BG TIDAL VOLUME(mL) 500 mL; BG TOTAL HEMOGLOBIN 11.1 g/dL (12.0-18.0); BG VENT MODE VENT - A/C; BG VENT RATE 16 set
[2019-01-27 14:21] LABS: CHLORIDE 107 mEq/L (98-107); INR 1.3; PROTHROMBIN TIME 13.2 sec (9.6-11.0)
[2019-01-27 14:25] LABS: ETHANOL BLOOD < 10 mg/dL
[2019-01-27] MEDS ORDERED: IOHEXOL-300 100 ML BOTTLE ONE (15:53)
[2019-01-27 16:02] LABS: CLARITY URINE TURBID (CLEAR); COLOR URINE YELLOW (YELLOW); KETONES URINE NEGATIVE (NEGATIVE); LEUKOCYTE ESTERASE URINE TRACE (NEGATIVE); NITRITE URINE NEGATIVE (NEGATIVE); OCCULT BLOOD URINE NEGATIVE (NEGATIVE); PROTEIN URINE 3+ (NEGATIVE); SPECIFIC GRAVITY URINE 1.016 (1.005-1.030); UROBILINOGEN URINE 0.2 E.U./dL (0.2-1.0)
[2019-01-27 17:21] LABS: BG BASE EXCESS -4.6 mmol/L (-2.0-2.0); BG CARBOXYHEMOGLOBIN 0.3 % (0.5-1.5); BG DEOXYHEMOGLOBIN 0.4 % (0.0-5.0); BG HCO3 ACT 19.4 mmol/L (22.0-26.0); BG METHEMOGLOBIN 0.3 % (0.0-1.5); BG OXYGEN SATURATION 99.6 % (92.0-98.5); BG PCO2 32.2 mmHg (35.0-45.0); BG PH 7.398 (7.350-7.450); BG PO2 342.2 mmHg (75.0-100.0); BG SAMPLE SITE RIGHT BRACHIAL; BG TIDAL VOLUME(mL) 500 mL; BG TOTAL HEMOGLOBIN 11.2 g/dL (12.0-18.0); BG VENT MODE VENT - A/C; BG VENT RATE 16 set
[2019-01-27] MEDS ORDERED: ENOXAPARIN 40MG/0.4ML SYR SUBCUT SCH (17:30)
[2019-01-27] MEDS ORDERED: ONDANSETRON HCL 4MG/2ML INJ IV PRN (17:30)
[2019-01-27] MEDS ORDERED: ACETAMINOPHEN 650MG SUPP PR PRN (17:30)
[2019-01-27] MEDS ORDERED: MAGNESIUM/ALUMINUM HYDROXIDE/SIMETHICONE 30ML UDC PO PRN (17:30)
[2019-01-27] MEDS: DEXT 5%/0.45% NACL 1000ML 1,000 ML IV SCH (17:30)
[2019-01-27] MEDS ORDERED: DEXTROSE 50% WATER 50ML SYRINGE IV PRN (17:30)
[2019-01-27] MEDS ORDERED: IPRATROPIUM/ALBUTEROL 0.5-3(2.5)MG/3ML NEB NEB PRN (17:30)
[2019-01-27] MEDS ORDERED: PIPERACILLIN/TAZOBACTAM 3.375 G in DEXT 5% WATER 100 ML IV SCH (18:15)
[2019-01-27] MEDS ORDERED: NICARDIPINE 100 MG in SODIUM CHLORIDE 0.9% 60 ML IV PRN (18:15)
[2019-01-27] MEDS: BLOOD SUGAR DIAGNOSTIC STRIP TEST SCH ×2 (18:59→21:22)
[2019-01-27] MEDS: INSULIN LISPRO 100 UNITS/ML SUBCUT SCH ×2 (19:01→21:21)
[2019-01-27] MEDS: ENOXAPARIN 30MG/0.3ML SYR SUBCUT SCH (19:02)
[2019-01-27] MEDS: PIPERACILLIN/TAZOBACTAM 2.25 G in DEXTROSE 5% WATER 50 ML IV SCH (20:07)
[2019-01-27] MEDS: PANTOPRAZOLE SODIUM 40 MG/VIAL IV SCH (20:07)
[2019-01-27] MEDS: PROPOFOL 10MG/ML 100ML 100 ML IV PRN (20:09)
[2019-01-27 20:55] LABS: *AMPHETAMINES SCREEN URINE NEGATIVE (NEGATIVE)
[2019-01-27 20:56] LABS: *BARBITURATES SCREEN URINE NEGATIVE (NEGATIVE); *BENZODIAZEPINES SCREEN URINE NEGATIVE (NEGATIVE); *COCAINE SCREEN URINE NEGATIVE (NEGATIVE); METHADONE URINE SCREEN NEGATIVE (NEGATIVE); OPIATES URINE SCREEN NEGATIVE (NEGATIVE); PHENCYCLIDINE URINE SCREEN NEGATIVE (NEGATIVE)
[2019-01-27 20:57] LABS: CANNABINOID URINE SCREEN NEGATIVE (NEGATIVE)
[2019-01-27 21:25] LABS: BG BASE EXCESS -4.7 mmol/L (-2.0-2.0); BG CARBOXYHEMOGLOBIN 0.3 % (0.5-1.5); BG DEOXYHEMOGLOBIN 1.7 % (0.0-5.0); BG FRACTION INSPIRED OXYGEN 65; BG OXYGEN SATURATION 98.3 % (92.0-98.5); BG PCO2 30.5 mmHg (35.0-45.0); BG PH 7.413 (7.350-7.450); BG PO2 120.4 mmHg (75.0-100.0); BG SAMPLE SITE RIGHT BRACHIAL; BG TIDAL VOLUME(mL) 500 mL; BG TOTAL HEMOGLOBIN 10.7 g/dL (12.0-18.0); BG VENT MODE VENT - A/C; BG VENT RATE 16 set
[2019-01-28] VITALS (84 sets, daily range): BP systolic 95–176; BP diastolic 52–102
[2019-01-28] MEDS: IPRATROPIUM/ALBUTEROL 0.5-3(2.5)MG/3ML NEB HHN SCH ×6 (00:32→20:34)
[2019-01-28] MEDS: PIPERACILLIN/TAZOBACTAM 2.25 G in DEXTROSE 5% WATER 50 ML IV SCH ×4 (01:46→20:21)
[2019-01-28] MEDS: PROPOFOL 10MG/ML 100ML 100 ML IV PRN ×3 (02:16→17:03)
[2019-01-28] MEDS ORDERED: METO100T16 PO (04:34)
[2019-01-28] MEDS ORDERED: SITA50TA3 PO (04:34)
[2019-01-28] MEDS ORDERED: LORA10TA7 PO (04:34)
[2019-01-28] MEDS ORDERED: FURO-151 PO (04:34)
[2019-01-28] MEDS ORDERED: DOXE50CA4 PO (04:34)
[2019-01-28] MEDS ORDERED: OLAN2.5T29 PO (04:34)
[2019-01-28] MEDS ORDERED: ERGO400T7 PO (04:34)
[2019-01-28] MEDS ORDERED: HYDR100T26 PO (04:34)
[2019-01-28] MEDS ORDERED: ATOR20TA65 PO (04:34)
[2019-01-28 06:02] LABS: HEMATOCRIT. 31.7 % (36.0-48.0); HEMOGLOBIN. 10.3 g/dL (12.0-16.0); MEAN CORPUSCULAR HEMOGLOBIN 27.8 pg (28.0-32.0); MEAN CORPUSCULAR VOLUME 85.7 fL (81.0-99.0); MEAN PLATELET VOLUME 10.5 fl (7.4-10.4); PLATELET 112 x1000/uL (130-400); RED CELL DISTRIBUTION WIDTH 18.3 % (11.6-14.6)
[2019-01-28] MEDS: BLOOD SUGAR DIAGNOSTIC STRIP TEST SCH ×3 (06:10→17:10)
[2019-01-28] MEDS: INSULIN LISPRO 100 UNITS/ML SUBCUT SCH ×4 (06:21→23:23)
[2019-01-28 06:39] LABS: PHOSPHORUS 3.3 mg/dL (2.5-4.9)
[2019-01-28 07:54] LABS: BG BASE EXCESS -4.4 mmol/L (-2.0-2.0); BG CARBOXYHEMOGLOBIN 0.3 % (0.5-1.5); BG DEOXYHEMOGLOBIN 0.6 % (0.0-5.0); BG FRACTION INSPIRED OXYGEN 65; BG METHEMOGLOBIN 0.1 % (0.0-1.5); BG OXYGEN SATURATION 99.4 % (92.0-98.5); BG PCO2 29.8 mmHg (35.0-45.0); BG PH 7.423 (7.350-7.450); BG PO2 215.5 mmHg (75.0-100.0); BG SAMPLE SITE RIGHT BRACHIAL; BG TIDAL VOLUME(mL) 500 mL; BG TOTAL HEMOGLOBIN 11.2 g/dL (12.0-18.0); BG VENT MODE VENT - A/C; BG VENT RATE 16 set
[2019-01-28] MEDS: DEXT 5%/0.45% NACL 1000ML 1,000 ML IV SCH (09:16)
[2019-01-28] MEDS: CLONIDINE 0.1MG TABLET PO PRN ×2 (09:16→23:58)
[2019-01-28] MEDS: ATORVASTATIN CALCIUM 20MG TABLET PO SCH (12:04)
[2019-01-28] MEDS: OLANZAPINE 2.5MG TABLET PO SCH (12:04)
[2019-01-28] MEDS: LACTULOSE 20G/30ML UDC PO SCH ×3 (12:04→21:12)
[2019-01-28 12:17] LABS: PLATELET ESTIMATE SLIGHTLY DECREASED
[2019-01-28] MEDS: ENOXAPARIN 30MG/0.3ML SYR SUBCUT SCH (17:11)
[2019-01-28] MEDS: PANTOPRAZOLE SODIUM 40 MG/VIAL IV SCH (21:12)
[2019-01-29] VITALS (49 sets, daily range): BP systolic 102–169; BP diastolic 51–97
[2019-01-29] MEDS: PROPOFOL 10MG/ML 100ML 100 ML IV PRN ×4 (00:01→17:12)
[2019-01-29] MEDS: BLOOD SUGAR DIAGNOSTIC STRIP TEST SCH ×4 (00:01→17:18)
[2019-01-29] MEDS: IPRATROPIUM/ALBUTEROL 0.5-3(2.5)MG/3ML NEB HHN SCH ×6 (00:34→20:38)
[2019-01-29] MEDS: PIPERACILLIN/TAZOBACTAM 2.25 G in DEXTROSE 5% WATER 50 ML IV SCH ×4 (01:05→20:57)
[2019-01-29] MEDS: DEXT 5%/0.45% NACL 1000ML 1,000 ML IV SCH ×2 (02:13→18:30)
[2019-01-29 05:37] LABS: HEMATOCRIT. 34.2 % (36.0-48.0); MEAN CORPUSCULAR VOLUME 86.9 fL (81.0-99.0); MEAN PLATELET VOLUME 10.6 fl (7.4-10.4); PLATELET 122 x1000/uL (130-400); RED BLOOD CELL COUNT 3.93 mill/uL (4.2-5.4); RED CELL DISTRIBUTION WIDTH 18.5 % (11.6-14.6)
[2019-01-29] MEDS: INSULIN LISPRO 100 UNITS/ML SUBCUT SCH ×3 (05:42→17:19)
[2019-01-29 05:52] LABS: PHOSPHORUS 3.8 mg/dL (2.5-4.9)
[2019-01-29 07:18] LABS: PLATELET ESTIMATE SLIGHTLY DECREASED
[2019-01-29] MEDS: OLANZAPINE 2.5MG TABLET PO SCH (08:13)
[2019-01-29] MEDS: ATORVASTATIN CALCIUM 20MG TABLET PO SCH (08:13)
[2019-01-29 08:23] LABS: HEPATITIS B SURFACE ANTIGEN NEGATIVE
[2019-01-29 10:42] LABS: BG BASE EXCESS -5.3 mmol/L (-2.0-2.0); BG CARBOXYHEMOGLOBIN 0.3 % (0.5-1.5); BG DEOXYHEMOGLOBIN 0.8 % (0.0-5.0); BG FRACTION INSPIRED OXYGEN 65; BG HCO3 ACT 18.7 mmol/L (22.0-26.0); BG METHEMOGLOBIN 0.1 % (0.0-1.5); BG OXYGEN SATURATION 99.2 % (92.0-98.5); BG OXYHEMOGLOBIN 98.8 % (94.0-97.0); BG PCO2 31.1 mmHg (35.0-45.0); BG PH 7.396 (7.350-7.450); BG PO2 196.3 mmHg (75.0-100.0); BG SAMPLE SITE RIGHT RADIAL; BG TIDAL VOLUME(mL) 500 mL; BG TOTAL HEMOGLOBIN 10.7 g/dL (12.0-18.0); BG VENT MODE VENT - A/C; BG VENT RATE 16 set
[2019-01-29] MEDS: ENOXAPARIN 30MG/0.3ML SYR SUBCUT SCH (18:18)
[2019-01-29] MEDS: PANTOPRAZOLE SODIUM 40 MG/VIAL IV SCH (20:57)
[2019-01-30] VITALS (86 sets, daily range): BP systolic 92–216; BP diastolic 50–111
[2019-01-30] MEDS: IPRATROPIUM/ALBUTEROL 0.5-3(2.5)MG/3ML NEB HHN SCH ×6 (00:30→20:58)
[2019-01-30] MEDS: BLOOD SUGAR DIAGNOSTIC STRIP TEST SCH ×5 (00:52→23:47)
[2019-01-30] MEDS: PIPERACILLIN/TAZOBACTAM 2.25 G in DEXTROSE 5% WATER 50 ML IV SCH ×3 (01:52→13:34)
[2019-01-30] MEDS: PROPOFOL 10MG/ML 100ML 100 ML IV PRN ×3 (04:34→21:45)
[2019-01-30 05:33] LABS: HEMATOCRIT. 34.8 % (36.0-48.0); MEAN CORPUSCULAR HEMOGLOBIN 27.4 pg (28.0-32.0); MEAN CORPUSCULAR VOLUME 86.6 fL (81.0-99.0); MEAN PLATELET VOLUME 10.2 fl (7.4-10.4); PLATELET 138 x1000/uL (130-400); RED BLOOD CELL COUNT 4.02 mill/uL (4.2-5.4); RED CELL DISTRIBUTION WIDTH 19.2 % (11.6-14.6)
[2019-01-30] MEDS: INSULIN LISPRO 100 UNITS/ML SUBCUT SCH ×5 (05:35→23:51)
[2019-01-30 05:38] LABS: CHLORIDE 108 mEq/L (98-107)
[2019-01-30 07:54] LABS: BG BASE EXCESS -4.9 mmol/L (-2.0-2.0); BG CARBOXYHEMOGLOBIN 0.3 % (0.5-1.5); BG DEOXYHEMOGLOBIN 3.2 % (0.0-5.0); BG FRACTION INSPIRED OXYGEN 40; BG HCO3 ACT 19.4 mmol/L (22.0-26.0); BG METHEMOGLOBIN 0.3 % (0.0-1.5); BG OXYGEN SATURATION 96.8 % (92.0-98.5); BG OXYHEMOGLOBIN 96.2 % (94.0-97.0); BG PCO2 33.1 mmHg (35.0-45.0); BG PH 7.385 (7.350-7.450); BG PO2 93.1 mmHg (75.0-100.0); BG SAMPLE SITE RIGHT RADIAL; BG TIDAL VOLUME(mL) 500 mL; BG TOTAL HEMOGLOBIN 11.4 g/dL (12.0-18.0); BG VENT MODE VENT - A/C; BG VENT RATE 16 set
[2019-01-30 07:58] LABS: PLATELET ESTIMATE NORMAL
[2019-01-30] MEDS: OLANZAPINE 2.5MG TABLET PO SCH (08:44)
[2019-01-30] MEDS: ATORVASTATIN CALCIUM 20MG TABLET PO SCH (08:44)
[2019-01-30] MEDS: CITRIC ACID/SODIUM CITRATE SOLN 30ML UDC PO SCH ×3 (08:45→16:25)
[2019-01-30] MEDS: CLONIDINE 0.1MG TABLET PO PRN ×2 (09:55→15:12)
[2019-01-30] MEDS: DEXT 5%/0.45% NACL 1000ML 1,000 ML IV SCH (11:45)
[2019-01-30] MEDS: AMPICILLIN/SULBACTAM 1.5G in SODIUM CHLORIDE 0.9% 50ML IV SCH (16:26)
[2019-01-30] MEDS: ENOXAPARIN 30MG/0.3ML SYR SUBCUT SCH (17:52)
[2019-01-30] MEDS: PANTOPRAZOLE SODIUM 40 MG/VIAL IV SCH (21:32)
[2019-01-30] MEDS: AMLODIPINE 5MG TABLET PO SCH (21:33)
[2019-01-30] MEDS: HYDRALAZINE HCL 100MG TABLET PO SCH (21:34)
[2019-01-31] VITALS (92 sets, daily range): BP systolic 111–170; BP diastolic 48–93
[2019-01-31] MEDS: IPRATROPIUM/ALBUTEROL 0.5-3(2.5)MG/3ML NEB HHN SCH ×6 (00:12→21:46)
[2019-01-31] MEDS: AMPICILLIN/SULBACTAM 1.5G in SODIUM CHLORIDE 0.9% 50ML IV SCH ×2 (03:23→15:33)
[2019-01-31] MEDS: DEXT 5%/0.45% NACL 1000ML 1,000 ML IV SCH (03:28)
[2019-01-31] MEDS: PROPOFOL 10MG/ML 100ML 100 ML IV PRN (05:17)
[2019-01-31 05:46] LABS: HEMATOCRIT. 32.8 % (36.0-48.0); HEMOGLOBIN. 10.7 g/dL (12.0-16.0); MEAN CORPUSCULAR HEMOGLOBIN 27.9 pg (28.0-32.0); MEAN CORPUSCULAR VOLUME 85.7 fL (81.0-99.0); MEAN PLATELET VOLUME 9.8 fl (7.4-10.4); PLATELET 138 x1000/uL (130-400); RED BLOOD CELL COUNT 3.82 mill/uL (4.2-5.4); RED CELL DISTRIBUTION WIDTH 18.8 % (11.6-14.6)
[2019-01-31 06:03] LABS: PHOSPHORUS 4.3 mg/dL (2.5-4.9)
[2019-01-31] MEDS: HYDRALAZINE HCL 100MG TABLET PO SCH ×3 (06:50→22:17)
[2019-01-31] MEDS: BLOOD SUGAR DIAGNOSTIC STRIP TEST SCH ×3 (07:15→17:15)
[2019-01-31] MEDS ORDERED: POTASSIUM CHLORIDE 20MEQ/PACKET PO SCH (07:30)
[2019-01-31] MEDS: INSULIN LISPRO 100 UNITS/ML SUBCUT SCH ×3 (07:34→17:15)
[2019-01-31 08:12] LABS: BG DEOXYHEMOGLOBIN 2.9 % (0.0-5.0); BG FRACTION INSPIRED OXYGEN 40; BG HCO3 ACT 22.7 mmol/L (22.0-26.0); BG METHEMOGLOBIN 0.1 % (0.0-1.5); BG OXYGEN SATURATION 97.1 % (92.0-98.5); BG PCO2 38.6 mmHg (35.0-45.0); BG PH 7.388 (7.350-7.450); BG PO2 93.6 mmHg (75.0-100.0); BG SAMPLE SITE RIGHT RADIAL; BG TIDAL VOLUME(mL) 500 mL; BG TOTAL HEMOGLOBIN 11.4 g/dL (12.0-18.0); BG VENT MODE VENT - A/C; BG VENT RATE 16 set
[2019-01-31] MEDS: ATORVASTATIN CALCIUM 20MG TABLET PO SCH (08:19)
[2019-01-31] MEDS: AMLODIPINE 5MG TABLET PO SCH ×2 (08:19→21:06)
[2019-01-31] MEDS: CITRIC ACID/SODIUM CITRATE SOLN 30ML UDC PO SCH ×3 (08:19→17:19)
[2019-01-31] MEDS: OLANZAPINE 2.5MG TABLET PO SCH (08:19)
[2019-01-31 09:11] LABS: PLATELET ESTIMATE NORMAL
[2019-01-31] MEDS ORDERED: PROPOFOL 10MG/ML 100ML 100 ML IV PRN (10:45)
[2019-01-31 14:39] LABS: BG BASE EXCESS -6.5 mmol/L (-2.0-2.0); BG CARBOXYHEMOGLOBIN 0.3 % (0.5-1.5); BG DEOXYHEMOGLOBIN 3.8 % (0.0-5.0); BG FRACTION INSPIRED OXYGEN 40; BG HCO3 ACT 17.8 mmol/L (22.0-26.0); BG METHEMOGLOBIN 0.1 % (0.0-1.5); BG OXYGEN SATURATION 96.2 % (92.0-98.5); BG OXYHEMOGLOBIN 95.8 % (94.0-97.0); BG PCO2 31.6 mmHg (35.0-45.0); BG PH 7.369 (7.350-7.450); BG PO2 91.1 mmHg (75.0-100.0); BG PRESSURE SUPPORT 8; BG SAMPLE SITE RIGHT RADIAL; BG TOTAL HEMOGLOBIN 11.1 g/dL (12.0-18.0); BG VENT MODE VENT - CPAP
[2019-01-31] MEDS: HYDRALAZINE 20MG/ML VIAL IV PRN (15:23)
[2019-01-31] MEDS: ENOXAPARIN 30MG/0.3ML SYR SUBCUT SCH (17:19)
[2019-01-31] MEDS: PANTOPRAZOLE SODIUM 40 MG/VIAL IV SCH (21:06)
[2019-02-01] VITALS (30 sets, daily range): BP systolic 132–160; BP diastolic 58–85
[2019-02-01] MEDS: IPRATROPIUM/ALBUTEROL 0.5-3(2.5)MG/3ML NEB HHN SCH ×6 (00:08→20:42)
[2019-02-01] MEDS: AMPICILLIN/SULBACTAM 1.5G in SODIUM CHLORIDE 0.9% 50ML IV SCH ×2 (03:56→16:24)
[2019-02-01 05:27] LABS: BASOPHILS % 0.6 % (0.0-2.0); EOSINOPHILS % 2.8 % (0.0-5.0); HEMATOCRIT. 29.1 % (36.0-48.0); HEMOGLOBIN. 9.5 g/dL (12.0-16.0); LYMPHOCYTES % 8.3 % (20.0-50.0); MEAN CORPUSCULAR HEMOGLOBIN 27.8 pg (28.0-32.0); MEAN CORPUSCULAR VOLUME 85.3 fL (81.0-99.0); MEAN PLATELET VOLUME 9.5 fl (7.4-10.4); MONOCYTES % 12.8 % (2.0-8.0); NEUTROPHILS % 75.5 % (40.0-76.0); PLATELET 139 x1000/uL (130-400); RED BLOOD CELL COUNT 3.42 mill/uL (4.2-5.4); RED CELL DISTRIBUTION WIDTH 18.2 % (11.6-14.6)
[2019-02-01 05:44] LABS: PHOSPHORUS 4.1 mg/dL (2.5-4.9)
[2019-02-01] MEDS: INSULIN LISPRO 100 UNITS/ML SUBCUT SCH ×5 (06:00→23:21)
[2019-02-01] MEDS: BLOOD SUGAR DIAGNOSTIC STRIP TEST SCH ×5 (06:13→23:16)
[2019-02-01] MEDS: HYDRALAZINE HCL 100MG TABLET PO SCH ×3 (06:20→22:20)
[2019-02-01] MEDS: OLANZAPINE 2.5MG TABLET PO SCH (08:15)
[2019-02-01] MEDS: CITRIC ACID/SODIUM CITRATE SOLN 30ML UDC PO SCH ×3 (08:15→16:24)
[2019-02-01] MEDS: ATORVASTATIN CALCIUM 20MG TABLET PO SCH (08:15)
[2019-02-01] MEDS: AMLODIPINE 5MG TABLET PO SCH ×2 (08:16→20:19)
[2019-02-01] MEDS ORDERED: POTASSIUM CHLORIDE 20MEQ/PACKET PO NR (08:59)
[2019-02-01] MEDS: ENOXAPARIN 30MG/0.3ML SYR SUBCUT SCH (18:09)
[2019-02-01] MEDS: PANTOPRAZOLE SODIUM 40 MG/VIAL IV SCH (20:18)
[2019-02-01] MEDS: HYDRALAZINE 20MG/ML VIAL IV PRN (23:25)
[2019-02-02] VITALS (14 sets, daily range): BP systolic 134–180; BP diastolic 62–85
[2019-02-02] MEDS: CLONIDINE 0.1MG TABLET PO PRN (02:26)
[2019-02-02] MEDS: IPRATROPIUM/ALBUTEROL 0.5-3(2.5)MG/3ML NEB HHN SCH ×5 (03:11→19:56)
[2019-02-02] MEDS: AMPICILLIN/SULBACTAM 1.5G in SODIUM CHLORIDE 0.9% 50ML IV SCH ×2 (04:14→15:02)
[2019-02-02] MEDS: BLOOD SUGAR DIAGNOSTIC STRIP TEST SCH ×3 (05:57→17:23)
[2019-02-02] MEDS: HYDRALAZINE HCL 100MG TABLET PO SCH ×3 (05:57→22:12)
[2019-02-02] MEDS: INSULIN LISPRO 100 UNITS/ML SUBCUT SCH ×3 (06:00→17:23)
[2019-02-02 06:01] LABS: HEMATOCRIT. 27.1 % (36.0-48.0); MEAN CORPUSCULAR HEMOGLOBIN 27.9 pg (28.0-32.0); MEAN CORPUSCULAR VOLUME 84.1 fL (81.0-99.0); MEAN PLATELET VOLUME 9.2 fl (7.4-10.4); PLATELET 147 x1000/uL (130-400); RED BLOOD CELL COUNT 3.22 mill/uL (4.2-5.4); RED CELL DISTRIBUTION WIDTH 17.5 % (11.6-14.6)
[2019-02-02 09:08] LABS: PLATELET ESTIMATE NORMAL
[2019-02-02] MEDS: OLANZAPINE 2.5MG TABLET PO SCH (10:05)
[2019-02-02] MEDS: ATORVASTATIN CALCIUM 20MG TABLET PO SCH (10:05)
[2019-02-02] MEDS: AMLODIPINE 5MG TABLET PO SCH ×2 (10:05→20:55)
[2019-02-02] MEDS: HYDRALAZINE 20MG/ML VIAL IV PRN (15:02)
[2019-02-02] MEDS: ENOXAPARIN 30MG/0.3ML SYR SUBCUT SCH (17:37)
[2019-02-02] MEDS: LORAZEPAM 2MG/ML CPJ IV PRN (17:37)
[2019-02-02] MEDS: RISPERIDONE 0.5MG TABLET PO SCH (17:37)
[2019-02-02] MEDS: PANTOPRAZOLE SODIUM 40 MG/VIAL IV SCH (20:55)
[2019-02-02] MEDS: GUAIFENESIN 600MG ER TABLET PO SCH (20:55)
[2019-02-03] VITALS (13 sets, daily range): BP systolic 130–175; BP diastolic 69–95
[2019-02-03] MEDS: IPRATROPIUM/ALBUTEROL 0.5-3(2.5)MG/3ML NEB HHN SCH ×6 (00:12→20:41)
[2019-02-03] MEDS: BLOOD SUGAR DIAGNOSTIC STRIP TEST SCH ×5 (00:21→23:28)
[2019-02-03] MEDS: INSULIN LISPRO 100 UNITS/ML SUBCUT SCH ×5 (00:39→23:28)
[2019-02-03] MEDS: HYDRALAZINE 20MG/ML VIAL IV PRN ×2 (01:00→15:58)
[2019-02-03] MEDS: AMPICILLIN/SULBACTAM 1.5G in SODIUM CHLORIDE 0.9% 50ML IV SCH ×2 (04:02→15:58)
[2019-02-03] MEDS: CLONIDINE 0.1MG TABLET PO PRN ×2 (04:38→18:37)
[2019-02-03] MEDS: HYDRALAZINE HCL 100MG TABLET PO SCH ×3 (05:11→23:07)
[2019-02-03 07:19] LABS: HEMATOCRIT. 28.9 % (36.0-48.0); HEMOGLOBIN. 9.4 g/dL (12.0-16.0); MEAN CORPUSCULAR HEMOGLOBIN 27.7 pg (28.0-32.0); MEAN CORPUSCULAR VOLUME 84.8 fL (81.0-99.0); MEAN PLATELET VOLUME 9.2 fl (7.4-10.4); PLATELET 142 x1000/uL (130-400); RED BLOOD CELL COUNT 3.41 mill/uL (4.2-5.4); RED CELL DISTRIBUTION WIDTH 18.1 % (11.6-14.6)
[2019-02-03 07:39] LABS: PHOSPHORUS 3.6 mg/dL (2.5-4.9)
[2019-02-03] MEDS: OLANZAPINE 2.5MG TABLET PO SCH (09:28)
[2019-02-03] MEDS: RISPERIDONE 0.5MG TABLET PO SCH (09:28)
[2019-02-03] MEDS: ATORVASTATIN CALCIUM 20MG TABLET PO SCH (09:28)
[2019-02-03] MEDS: AMLODIPINE 5MG TABLET PO SCH ×2 (09:28→20:07)
[2019-02-03] MEDS: GUAIFENESIN 600MG ER TABLET PO SCH ×2 (09:28→20:07)
[2019-02-03] MEDS: LORAZEPAM 2MG/ML CPJ IV PRN (15:58)
[2019-02-03] MEDS ORDERED: FUROSEMIDE 40MG TABLET PO NR (16:00)
[2019-02-03] MEDS: ENOXAPARIN 30MG/0.3ML SYR SUBCUT SCH (18:37)
[2019-02-03] MEDS: PANTOPRAZOLE SODIUM 40 MG/VIAL IV SCH (20:07)
[2019-02-03] MEDS: METOPROLOL TARTRATE 50MG TABLET PO SCH (20:08)
[2019-02-03] MEDS ORDERED: METOPROLOL TARTRATE 50MG TABLET PO SCH (21:00)
[2019-02-03 22:57] LABS: PLATELET ESTIMATE NORMAL
[2019-02-04] VITALS (13 sets, daily range): BP systolic 121–170; BP diastolic 65–98
[2019-02-04] MEDS: IPRATROPIUM/ALBUTEROL 0.5-3(2.5)MG/3ML NEB HHN SCH ×6 (01:09→21:15)
[2019-02-04] MEDS: AMPICILLIN/SULBACTAM 1.5G in SODIUM CHLORIDE 0.9% 50ML IV SCH ×2 (03:30→15:13)
[2019-02-04] MEDS: HYDRALAZINE HCL 100MG TABLET PO SCH ×3 (05:29→22:00)
[2019-02-04] MEDS: BLOOD SUGAR DIAGNOSTIC STRIP TEST SCH ×4 (05:35→23:58)
[2019-02-04] MEDS: INSULIN LISPRO 100 UNITS/ML SUBCUT SCH ×4 (05:35→23:58)
[2019-02-04] MEDS: HYDRALAZINE 20MG/ML VIAL IV PRN ×2 (06:57→23:35)
[2019-02-04 07:09] LABS: HEMATOCRIT. 29.2 % (36.0-48.0); HEMOGLOBIN. 9.5 g/dL (12.0-16.0); MEAN CORPUSCULAR HEMOGLOBIN 27.5 pg (28.0-32.0); MEAN CORPUSCULAR VOLUME 84.7 fL (81.0-99.0); MEAN PLATELET VOLUME 9.2 fl (7.4-10.4); PLATELET 131 x1000/uL (130-400); RED BLOOD CELL COUNT 3.45 mill/uL (4.2-5.4); RED CELL DISTRIBUTION WIDTH 17.8 % (11.6-14.6)
[2019-02-04] MEDS: GUAIFENESIN 600MG ER TABLET PO SCH ×2 (08:18→21:00)
[2019-02-04] MEDS: RISPERIDONE 0.5MG TABLET PO SCH (08:18)
[2019-02-04] MEDS: METOPROLOL TARTRATE 50MG TABLET PO SCH ×2 (08:18→21:00)
[2019-02-04] MEDS: OLANZAPINE 2.5MG TABLET PO SCH (08:18)
[2019-02-04] MEDS: ATORVASTATIN CALCIUM 20MG TABLET PO SCH (08:18)
[2019-02-04] MEDS: AMLODIPINE 5MG TABLET PO SCH ×2 (08:18→21:00)
[2019-02-04 10:05] LABS: PLATELET ESTIMATE NORMAL
[2019-02-04] MEDS: FUROSEMIDE 40MG TABLET NG SCH (13:03)
[2019-02-04] MEDS: ENOXAPARIN 30MG/0.3ML SYR SUBCUT SCH (17:20)
[2019-02-04] MEDS: LORAZEPAM 2MG/ML CPJ IV PRN (20:40)
[2019-02-04] MEDS: PANTOPRAZOLE SODIUM 40 MG/VIAL IV SCH (22:28)
[2019-02-04] MEDS: SODIUM CHL 0.45% + KCL 20MEQ/L 1,000 ML IV SCH (23:35)
[2019-02-05] VITALS (10 sets, daily range): BP systolic 130–166; BP diastolic 51–77
[2019-02-05] MEDS: IPRATROPIUM/ALBUTEROL 0.5-3(2.5)MG/3ML NEB HHN SCH ×5 (00:58→22:27)
[2019-02-05] MEDS: AMPICILLIN/SULBACTAM 1.5G in SODIUM CHLORIDE 0.9% 50ML IV SCH ×2 (03:35→17:12)
[2019-02-05] MEDS: HYDRALAZINE HCL 100MG TABLET PO SCH ×3 (05:01→21:11)
[2019-02-05] MEDS: INSULIN LISPRO 100 UNITS/ML SUBCUT SCH ×3 (05:32→17:46)
[2019-02-05] MEDS: BLOOD SUGAR DIAGNOSTIC STRIP TEST SCH ×3 (05:32→17:46)
[2019-02-05 07:02] LABS: INR 1.3; PROTHROMBIN TIME 12.7 sec (9.6-11.0)
[2019-02-05 07:06] LABS: BASOPHILS % 0.9 % (0.0-2.0); EOSINOPHILS % 0.8 % (0.0-5.0); HEMATOCRIT. 29.6 % (36.0-48.0); HEMOGLOBIN. 9.5 g/dL (12.0-16.0); LYMPHOCYTES % 12.3 % (20.0-50.0); MEAN CORPUSCULAR HEMOGLOBIN 27.4 pg (28.0-32.0); MEAN PLATELET VOLUME 10.2 fl (7.4-10.4); MONOCYTES % 13.8 % (2.0-8.0); NEUTROPHILS % 72.2 % (40.0-76.0); PLATELET 141 x1000/uL (130-400); RED BLOOD CELL COUNT 3.48 mill/uL (4.2-5.4); RED CELL DISTRIBUTION WIDTH 17.5 % (11.6-14.6)
[2019-02-05] MEDS: ATORVASTATIN CALCIUM 20MG TABLET PO SCH (08:14)
[2019-02-05] MEDS: FUROSEMIDE 40MG TABLET NG SCH (08:14)
[2019-02-05] MEDS: METOPROLOL TARTRATE 50MG TABLET PO SCH ×2 (08:15→21:00)
[2019-02-05] MEDS: GUAIFENESIN 600MG ER TABLET PO SCH (08:15)
[2019-02-05] MEDS: AMLODIPINE 5MG TABLET PO SCH ×2 (08:15→21:10)
[2019-02-05] MEDS: OLANZAPINE 2.5MG TABLET PO SCH (08:16)
[2019-02-05] MEDS: RISPERIDONE 0.5MG TABLET PO SCH (08:16)
[2019-02-05] MEDS: SODIUM CHL 0.45% + KCL 20MEQ/L 1,000 ML IV SCH (14:42)
[2019-02-05] MEDS ORDERED: MIDAZOLAM HCL 5 MG/5 ML VIAL ONE (15:23)
[2019-02-05] MEDS ORDERED: FENTANYL CITRATE/PF 50MCG/ML 2ML VIAL ONE (15:23)
[2019-02-05] MEDS ORDERED: MIDAZOLAM HCL 5 MG/5 ML VIAL IV PRN (15:24)
[2019-02-05] MEDS ORDERED: FENTANYL CITRATE/PF 50MCG/ML 2ML VIAL IV PRN (15:25)
[2019-02-05] MEDS ORDERED: GUAIFENESIN 200MG/10ML SUGAR FREE UDC PO PRN (15:45)
[2019-02-05] MEDS ORDERED: FAMOTIDINE 20MG TABLET PO SCH (21:00)
[2019-02-06] VITALS (11 sets, daily range): BP systolic 144–170; BP diastolic 69–98
[2019-02-06] MEDS: IPRATROPIUM/ALBUTEROL 0.5-3(2.5)MG/3ML NEB HHN SCH ×3 (03:09→13:58)
[2019-02-06] MEDS: AMPICILLIN/SULBACTAM 1.5G in SODIUM CHLORIDE 0.9% 50ML IV SCH ×2 (03:52→15:19)
[2019-02-06] MEDS: HYDRALAZINE HCL 100MG TABLET PO SCH ×2 (05:22→13:25)
[2019-02-06] MEDS: SODIUM CHL 0.45% + KCL 20MEQ/L 1,000 ML IV SCH (05:43)
[2019-02-06] MEDS: BLOOD SUGAR DIAGNOSTIC STRIP TEST SCH ×4 (05:44→17:12)
[2019-02-06] MEDS: INSULIN LISPRO 100 UNITS/ML SUBCUT SCH ×4 (06:00→17:18)
[2019-02-06 06:03] LABS: HEMATOCRIT. 29.8 % (36.0-48.0); HEMOGLOBIN. 9.6 g/dL (12.0-16.0); MEAN CORPUSCULAR HEMOGLOBIN 27.6 pg (28.0-32.0); MEAN CORPUSCULAR VOLUME 85.6 fL (81.0-99.0); MEAN PLATELET VOLUME 10.2 fl (7.4-10.4); PLATELET 166 x1000/uL (130-400); RED BLOOD CELL COUNT 3.48 mill/uL (4.2-5.4)
[2019-02-06] MEDS: METOPROLOL TARTRATE 50MG TABLET PO SCH (08:02)
[2019-02-06] MEDS: OLANZAPINE 2.5MG TABLET PO SCH (08:02)
[2019-02-06] MEDS: ATORVASTATIN CALCIUM 20MG TABLET PO SCH (08:02)
[2019-02-06] MEDS: RISPERIDONE 0.5MG TABLET PO SCH (08:02)
[2019-02-06] MEDS: FUROSEMIDE 40MG TABLET NG SCH (08:03)
[2019-02-06] MEDS: AMLODIPINE 5MG TABLET PO SCH (08:03)
[2019-02-06] MEDS: CLONIDINE 0.1MG TABLET PO PRN (15:20)
[2019-02-06 15:21] LABS: PLATELET ESTIMATE NORMAL
== END 2019-02-06 19:33 | DRG 870 ==
LOC: ER 13:51 → CVICU 16:56 → EDBEDREQ 17:00 → ENRESERV 17:04 → 5EST 02-01 12:15
PROVIDERS: ADMIT Internal Medicine; ATTEND Internal Medicine
PROC: 5A1955Z Respiratory Ventilation, Greater than 96 Consecutive Hours (ICD-10-PCS; 2019-01-27)
PROC: 4A10X4Z Monitoring of Central Nervous Electrical Activity, External Approach (ICD-10-PCS; 2019-01-29)
PROC: 0DH63UZ Insertion of Feeding Device into Stomach, Percutaneous Approach (ICD-10-PCS; principal; 2019-02-05)
DX: A41.59 Other Gram-negative sepsis (principal); J96.00 Acute respiratory failure, unspecified whether with hypoxia or hypercapnia; J69.0 Pneumonitis due to inhalation of food and vomit; I46.9 Cardiac arrest, cause unspecified; G93.41 Metabolic encephalopathy; K29.71 Gastritis, unspecified, with bleeding; E44.1 Mild protein-calorie malnutrition; N17.9 Acute kidney failure, unspecified; N39.0 Urinary tract infection, site not specified; R18.8 Other ascites; I31.3 Pericardial effusion (noninflammatory); R00.1 Bradycardia, unspecified; E11.65 Type 2 diabetes mellitus with hyperglycemia; E11.22 Type 2 diabetes mellitus with diabetic chronic kidney disease; E03.9 Hypothyroidism, unspecified; D64.9 Anemia, unspecified; R13.12 Dysphagia, oropharyngeal phase; N18.9 Chronic kidney disease, unspecified; F03.90 Unspecified dementia, unspecified severity, without behavioral disturbance, psychotic disturbance, mood disturbance, and anxiety; I13.10 Hypertensive heart and chronic kidney disease without heart failure, with stage 1 through stage 4 chronic kidney disease, or unspecified chronic kidney disease; I27.21 Secondary pulmonary arterial hypertension; K21.9 Gastro-esophageal reflux disease without esophagitis; Z86.73 Personal history of transient ischemic attack (TIA), and cerebral infarction without residual deficits; Z68.33 Body mass index [BMI] 33.0-33.9, adult; Z88.2 Allergy status to sulfonamides; Z79.82 Long term (current) use of aspirin; Z79.899 Other long term (current) drug therapy
CPT/HCPCS: 36415; 36600; 70551; 71045; 74177; 80048; 80061; 80305; 80320; 81003; 82140; 82375; 82805; 82962; 83036; 83735; 83880; 84100; 84443; 84478; 84484; 86803; 86850; 86900; 87070; 87186; 87340; 92610; 93005; 93306; 93880; 93970; 94002; 94003; 94640; 95816; 96365; 96375; 97110; 97162; 97166; 97530; 97535; 99285; C9113; J0295; J0360; J1650; J1815; J2060; J2250; J2405; J2543; J2704; J3010; J3480; J7042; J7060; J7620; Q9967; A4315; G0480

== ENCOUNTER 2019-02-21 10:58 | Inpatient (IN) | payer MEDICARE, MEDICAID ==
[2019-02-21] VITALS (24 sets, daily range): BP systolic 117–147; BP diastolic 57–75
[~2019-02-21] VITALS: Ht 175.3 cm; Wt 84.4 kg
[2019-02-21] MEDS ORDERED: SODIUM CHLORIDE 0.9% 1,000 ML IV ONE (11:34)
[2019-02-21 11:43] LABS: HEMATOCRIT. 30.2 % (36.0-48.0); HEMOGLOBIN. 9.7 g/dL (12.0-16.0); MEAN CORPUSCULAR HEMOGLOBIN 26.7 pg (28.0-32.0); MEAN CORPUSCULAR VOLUME 82.9 fL (81.0-99.0); MEAN PLATELET VOLUME 9.5 fl (7.4-10.4); PLATELET 412 x1000/uL (130-400); RED BLOOD CELL COUNT 3.64 mill/uL (4.2-5.4); RED CELL DISTRIBUTION WIDTH 15.5 % (11.6-14.6)
[2019-02-21] MEDS ORDERED: PROPOFOL 10MG/ML 100ML 100 ML IV SCH (11:45)
[2019-02-21 11:51] LABS: INR 1.4
[2019-02-21 11:54] LABS: CHLORIDE 103 mEq/L (98-107)
[2019-02-21 11:58] LABS: ETHANOL BLOOD < 10 mg/dL
[2019-02-21 12:02] LABS: CREATINE KINASE 198 IU/L (26-192)
[2019-02-21] MEDS ORDERED: PIPERACILLIN/TAZOBACTAM 3.375GM/50ML PREMIX IV ONE (12:15)
[2019-02-21 12:25] LABS: PLATELET ESTIMATE NORMAL
[2019-02-21] MEDS ORDERED: PIPERACILLIN/TAZ 3.375G PREMIX 50 ML IV SCH (12:30)
[2019-02-21 12:48] LABS: CLARITY URINE TURBID (CLEAR); COLOR URINE DARK YELLOW (YELLOW); KETONES URINE NEGATIVE (NEGATIVE); LEUKOCYTE ESTERASE URINE 2+ (NEGATIVE); NITRITE URINE NEGATIVE (NEGATIVE); OCCULT BLOOD URINE NEGATIVE (NEGATIVE); PROTEIN URINE 1+ (NEGATIVE); SPECIFIC GRAVITY URINE 1.016 (1.005-1.030); UROBILINOGEN URINE 0.2 E.U./dL (0.2-1.0)
[2019-02-21] MEDS ORDERED: DIATR MEGLU/DIATRIZOATE SOLN 30ML ONE (13:15)
[2019-02-21 14:09] LABS: *BARBITURATES SCREEN URINE NEGATIVE (NEGATIVE); *BENZODIAZEPINES SCREEN URINE NEGATIVE (NEGATIVE)
[2019-02-21 14:10] LABS: *AMPHETAMINES SCREEN URINE NEGATIVE (NEGATIVE); *COCAINE SCREEN URINE NEGATIVE (NEGATIVE); CANNABINOID URINE SCREEN NEGATIVE (NEGATIVE); METHADONE URINE SCREEN NEGATIVE (NEGATIVE); OPIATES URINE SCREEN NEGATIVE (NEGATIVE); PHENCYCLIDINE URINE SCREEN NEGATIVE (NEGATIVE)
[2019-02-21 15:51] LABS: BG BASE EXCESS 0.1 mmol/L (-2.0-2.0); BG CARBOXYHEMOGLOBIN 0.3 % (0.5-1.5); BG DEOXYHEMOGLOBIN 1.5 % (0.0-5.0); BG FRACTION INSPIRED OXYGEN 100; BG HCO3 ACT 22.1 mmol/L (22.0-26.0); BG METHEMOGLOBIN 0.2 % (0.0-1.5); BG OXYGEN SATURATION 98.5 % (92.0-98.5); BG PCO2 26.9 mmHg (35.0-45.0); BG PH 7.532 (7.350-7.450); BG PO2 133.8 mmHg (75.0-100.0); BG SAMPLE SITE RIGHT RADIAL; BG TIDAL VOLUME(mL) 500 mL; BG TOTAL HEMOGLOBIN 9.9 g/dL (12.0-18.0); BG VENT MODE VENT - A/C; BG VENT RATE 14 set
[2019-02-21] MEDS ORDERED: PROPOFOL 10MG/ML 100ML 100 ML IV PRN (18:00)
[2019-02-21] MEDS ORDERED: ONDANSETRON HCL 4MG TABLET PO PRN (18:15)
[2019-02-21] MEDS ORDERED: SODIUM CHLORIDE 0.9% 1,000 ML IV SCH (18:15)
[2019-02-21] MEDS: DEXT 5%/0.45% NACL 1000ML 1,000 ML IV SCH (18:15)
[2019-02-21] MEDS ORDERED: LORAZEPAM 2MG/ML CPJ IV PRN (18:15)
[2019-02-21] MEDS ORDERED: PIPERACILLIN/TAZOBACTAM 3.375 G in DEXT 5% WATER 100 ML IV SCH (18:15)
[2019-02-21] MEDS: PROPOFOL 10MG/ML 100ML 100 ML IV PRN (19:24)
[2019-02-21] MEDS ORDERED: VANCOMYCIN 1500MG in DEXTROSE 5% WATER 250ML IV NR (20:00)
[2019-02-21] MEDS: IPRATROPIUM/ALBUTEROL 0.5-3(2.5)MG/3ML NEB HHN SCH (20:17)
[2019-02-21] MEDS: ONDANSETRON HCL 4MG/2ML INJ IV PRN (20:47)
[2019-02-21] MEDS ORDERED: BLOOD SUGAR DIAGNOSTIC STRIP TEST SCH (21:00)
[2019-02-21] MEDS ORDERED: INSULIN LISPRO 100 UNITS/ML SUBCUT SCH (21:00)
[2019-02-21] MEDS: PIPERACILLIN/TAZOBACTAM 2.25 G in DEXTROSE 5% WATER 50 ML IV SCH (21:09)
[2019-02-22] VITALS (92 sets, daily range): BP systolic 98–148; BP diastolic 50–79
[2019-02-22] MEDS: IPRATROPIUM/ALBUTEROL 0.5-3(2.5)MG/3ML NEB HHN SCH ×4 (02:14→20:05)
[2019-02-22] MEDS: PROPOFOL 10MG/ML 100ML 100 ML IV PRN ×3 (02:48→22:19)
[2019-02-22 05:39] LABS: HEMATOCRIT. 27.6 % (36.0-48.0); HEMOGLOBIN. 9.2 g/dL (12.0-16.0); MEAN CORPUSCULAR HEMOGLOBIN 27.1 pg (28.0-32.0); MEAN CORPUSCULAR VOLUME 81.4 fL (81.0-99.0); MEAN PLATELET VOLUME 9.5 fl (7.4-10.4); PLATELET 384 x1000/uL (130-400); RED BLOOD CELL COUNT 3.39 mill/uL (4.2-5.4); RED CELL DISTRIBUTION WIDTH 15.6 % (11.6-14.6)
[2019-02-22] MEDS: BLOOD SUGAR DIAGNOSTIC STRIP TEST SCH ×3 (06:02→18:04)
[2019-02-22] MEDS: PIPERACILLIN/TAZOBACTAM 2.25 G in DEXTROSE 5% WATER 50 ML IV SCH ×2 (06:08→13:51)
[2019-02-22] MEDS: INSULIN LISPRO 100 UNITS/ML SUBCUT SCH ×3 (06:08→18:07)
[2019-02-22] MEDS ORDERED: LIDOCAINE HCL 1% 20ML VIAL (Pyxis) INJ ONE (07:33)
[2019-02-22] MEDS ORDERED: POTASSIUM CHLORIDE INJ 40 MEQ in DEXT 5% WATER 250 ML IV NR (08:00)
[2019-02-22 08:12] LABS: PHOSPHORUS 3.2 mg/dL (2.5-4.9)
[2019-02-22 08:46] LABS: BG BASE EXCESS 1.4 mmol/L (-2.0-2.0); BG CARBOXYHEMOGLOBIN 0.2 % (0.5-1.5); BG DEOXYHEMOGLOBIN 5.3 % (0.0-5.0); BG FRACTION INSPIRED OXYGEN 50; BG HCO3 ACT 22.9 mmol/L (22.0-26.0); BG METHEMOGLOBIN 0.3 % (0.0-1.5); BG OXYGEN SATURATION 94.7 % (92.0-98.5); BG OXYHEMOGLOBIN 94.2 % (94.0-97.0); BG PCO2 25.4 mmHg (35.0-45.0); BG PH 7.572 (7.350-7.450); BG PO2 68.4 mmHg (75.0-100.0); BG SAMPLE SITE RIGHT RADIAL; BG TIDAL VOLUME(mL) 500 mL; BG TOTAL HEMOGLOBIN 9.1 g/dL (12.0-18.0); BG VENT MODE VENT - A/C; BG VENT RATE 12 set
[2019-02-22] MEDS ORDERED: PANTOPRAZOLE SODIUM 40 MG/VIAL IV SCH (09:00)
[2019-02-22] MEDS: PANTOPRAZOLE SODIUM 40 MG/VIAL IV SCH (09:17)
[2019-02-22] MEDS: DEXT 5%/0.45% NACL 1000ML 1,000 ML IV SCH (09:18)
[2019-02-22 10:42] LABS: PLATELET ESTIMATE NORMAL
[2019-02-22] MEDS: ACETAMINOPHEN 650MG SUPP PR PRN (13:50)
[2019-02-22] MEDS ORDERED: VANCOMYCIN 1250MG in DEXTROSE 5% WATER 250ML IV NR (14:00)
[2019-02-22] MEDS ORDERED: DIATR MEGLU/DIATRIZOATE SOLN 30ML ONE (15:45)
[2019-02-22] MEDS ORDERED: TOTAL PARENTERAL NUTRITION 2,000 ML IV SCH (21:00)
[2019-02-22] MEDS: FAT EMULSIONS 500 ML IV SCH (21:14)
[2019-02-23] VITALS (93 sets, daily range): BP systolic 102–143; BP diastolic 37–87
[2019-02-23] MEDS: PIPERACILLIN/TAZOBACTAM 2.25 G in DEXTROSE 5% WATER 50 ML IV SCH (00:10)
[2019-02-23] MEDS: BLOOD SUGAR DIAGNOSTIC STRIP TEST SCH ×4 (00:17→17:55)
[2019-02-23] MEDS: INSULIN LISPRO 100 UNITS/ML SUBCUT SCH ×4 (00:35→18:01)
[2019-02-23] MEDS: CEFEPIME 2,000 MG in DEXT 5% WATER 100 ML IV SCH (02:19)
[2019-02-23] MEDS: IPRATROPIUM/ALBUTEROL 0.5-3(2.5)MG/3ML NEB HHN SCH ×4 (02:24→20:23)
[2019-02-23 06:11] LABS: HEMOGLOBIN. 8.8 g/dL (12.0-16.0); MEAN CORPUSCULAR HEMOGLOBIN 27.7 pg (28.0-32.0); MEAN CORPUSCULAR VOLUME 82.2 fL (81.0-99.0); PLATELET 358 x1000/uL (130-400); RED BLOOD CELL COUNT 3.17 mill/uL (4.2-5.4); RED CELL DISTRIBUTION WIDTH 15.5 % (11.6-14.6)
[2019-02-23 07:18] LABS: PLATELET ESTIMATE NORMAL
[2019-02-23 08:42] LABS: BG BASE EXCESS -0.8 mmol/L (-2.0-2.0); BG CARBOXYHEMOGLOBIN 0.3 % (0.5-1.5); BG DEOXYHEMOGLOBIN 2.4 % (0.0-5.0); BG FRACTION INSPIRED OXYGEN 60; BG HCO3 ACT 22.4 mmol/L (22.0-26.0); BG METHEMOGLOBIN 0.1 % (0.0-1.5); BG OXYGEN SATURATION 97.6 % (92.0-98.5); BG OXYHEMOGLOBIN 97.2 % (94.0-97.0); BG PCO2 31.6 mmHg (35.0-45.0); BG PH 7.469 (7.350-7.450); BG PO2 102.4 mmHg (75.0-100.0); BG SAMPLE SITE RIGHT RADIAL; BG TIDAL VOLUME(mL) 500 mL; BG TOTAL HEMOGLOBIN 9.1 g/dL (12.0-18.0); BG VENT MODE VENT - A/C; BG VENT RATE 12 set
[2019-02-23] MEDS ORDERED: DIATR MEGLU/DIATRIZOATE SOLN 30ML GT NR (08:45)
[2019-02-23] MEDS: PROPOFOL 10MG/ML 100ML 100 ML IV PRN ×2 (09:08→15:42)
[2019-02-23] MEDS: PANTOPRAZOLE SODIUM 40 MG/VIAL IV SCH (09:09)
[2019-02-23] MEDS ORDERED: TOTAL PARENTERAL NUTRITION 1,500 ML IV SCH (21:00)
[2019-02-23] MEDS: INSULIN GLARGINE UD 100 UNITS/ML SYR SUBCUT SCH (21:27)
[2019-02-24] VITALS (91 sets, daily range): BP systolic 94–149; BP diastolic 47–80
[2019-02-24] MEDS: BLOOD SUGAR DIAGNOSTIC STRIP TEST SCH ×4 (00:25→23:56)
[2019-02-24] MEDS: INSULIN LISPRO 100 UNITS/ML SUBCUT SCH ×5 (00:44→23:59)
[2019-02-24] MEDS: PROPOFOL 10MG/ML 100ML 100 ML IV PRN ×3 (01:36→16:17)
[2019-02-24] MEDS: IPRATROPIUM/ALBUTEROL 0.5-3(2.5)MG/3ML NEB HHN SCH ×4 (02:06→19:59)
[2019-02-24] MEDS: CEFEPIME 2,000 MG in DEXT 5% WATER 100 ML IV SCH (03:28)
[2019-02-24 05:57] LABS: HEMATOCRIT. 28.7 % (36.0-48.0); HEMOGLOBIN. 9.4 g/dL (12.0-16.0); MEAN CORPUSCULAR HEMOGLOBIN 26.9 pg (28.0-32.0); MEAN CORPUSCULAR VOLUME 81.7 fL (81.0-99.0); MEAN PLATELET VOLUME 9.4 fl (7.4-10.4); PLATELET 340 x1000/uL (130-400); RED BLOOD CELL COUNT 3.51 mill/uL (4.2-5.4); RED CELL DISTRIBUTION WIDTH 15.5 % (11.6-14.6)
[2019-02-24 06:02] LABS: PHOSPHORUS 3.8 mg/dL (2.5-4.9)
[2019-02-24 07:43] LABS: BG BASE EXCESS 0.9 mmol/L (-2.0-2.0); BG CARBOXYHEMOGLOBIN 0.3 % (0.5-1.5); BG DEOXYHEMOGLOBIN 2.2 % (0.0-5.0); BG HCO3 ACT 24.2 mmol/L (22.0-26.0); BG METHEMOGLOBIN 0.3 % (0.0-1.5); BG OXYGEN SATURATION 97.8 % (92.0-98.5); BG OXYHEMOGLOBIN 97.2 % (94.0-97.0); BG PCO2 33.9 mmHg (35.0-45.0); BG PH 7.472 (7.350-7.450); BG PO2 98.7 mmHg (75.0-100.0); BG SAMPLE SITE RIGHT RADIAL; BG TIDAL VOLUME(mL) 500 mL; BG TOTAL HEMOGLOBIN 10.1 g/dL (12.0-18.0); BG VENT MODE VENT - A/C; BG VENT RATE 12 set
[2019-02-24 08:02] LABS: PLATELET ESTIMATE NORMAL
[2019-02-24] MEDS: PANTOPRAZOLE SODIUM 40 MG/VIAL IV SCH (08:30)
[2019-02-24] MEDS: INSULIN GLARGINE UD 100 UNITS/ML SYR SUBCUT SCH ×2 (10:19→22:27)
[2019-02-24] MEDS ORDERED: PROPOFOL 10MG/ML 100ML 100 ML IV PRN (19:00)
[2019-02-24] MEDS ORDERED: TOTAL PARENTERAL NUTRITION 1,500 ML IV SCH (21:00)
[2019-02-24] MEDS ORDERED: VANCOMYCIN 1 G PREMIX 200 ML IV SCH (21:00)
[2019-02-25] VITALS (83 sets, daily range): BP systolic 116–160; BP diastolic 57–79
[2019-02-25] MEDS: IPRATROPIUM/ALBUTEROL 0.5-3(2.5)MG/3ML NEB HHN SCH ×4 (02:32→20:22)
[2019-02-25] MEDS: CEFEPIME 2,000 MG in DEXT 5% WATER 100 ML IV SCH (04:49)
[2019-02-25 05:46] LABS: HEMATOCRIT. 26.2 % (36.0-48.0); HEMOGLOBIN. 8.6 g/dL (12.0-16.0); MEAN CORPUSCULAR HEMOGLOBIN 26.5 pg (28.0-32.0); MEAN CORPUSCULAR VOLUME 80.5 fL (81.0-99.0); MEAN PLATELET VOLUME 9.5 fl (7.4-10.4); PLATELET 363 x1000/uL (130-400); RED BLOOD CELL COUNT 3.25 mill/uL (4.2-5.4); RED CELL DISTRIBUTION WIDTH 15.6 % (11.6-14.6)
[2019-02-25 05:54] LABS: PHOSPHORUS 3.4 mg/dL (2.5-4.9)
[2019-02-25] MEDS: BLOOD SUGAR DIAGNOSTIC STRIP TEST SCH ×3 (06:17→18:36)
[2019-02-25] MEDS: INSULIN LISPRO 100 UNITS/ML SUBCUT SCH ×3 (06:23→18:36)
[2019-02-25 08:43] LABS: BG BASE EXCESS -3.6 mmol/L (-2.0-2.0); BG CARBOXYHEMOGLOBIN 0.4 % (0.5-1.5); BG DEOXYHEMOGLOBIN 1.6 % (0.0-5.0); BG FRACTION INSPIRED OXYGEN 55; BG HCO3 ACT 20.1 mmol/L (22.0-26.0); BG METHEMOGLOBIN 0.3 % (0.0-1.5); BG OXYGEN SATURATION 98.4 % (92.0-98.5); BG OXYHEMOGLOBIN 97.7 % (94.0-97.0); BG PCO2 31.9 mmHg (35.0-45.0); BG PH 7.418 (7.350-7.450); BG SAMPLE SITE RIGHT RADIAL; BG TIDAL VOLUME(mL) 500 mL; BG TOTAL HEMOGLOBIN 10.9 g/dL (12.0-18.0); BG VENT MODE VENT - A/C; BG VENT RATE 12 set
[2019-02-25] MEDS: PANTOPRAZOLE SODIUM 40 MG/VIAL IV SCH (09:54)
[2019-02-25] MEDS: INSULIN GLARGINE UD 100 UNITS/ML SYR SUBCUT SCH (09:55)
[2019-02-25 10:01] LABS: PLATELET ESTIMATE NORMAL
[2019-02-25] MEDS: ACETAMINOPHEN 650MG SUPP PR PRN (20:57)
[2019-02-25] MEDS ORDERED: TOTAL PARENTERAL NUTRITION 1,000 ML IV SCH (21:00)
[2019-02-25] MEDS: PROPOFOL 10MG/ML 100ML 100 ML IV PRN (21:01)
[2019-02-26] VITALS (87 sets, daily range): BP systolic 115–169; BP diastolic 56–88
[2019-02-26] MEDS: BLOOD SUGAR DIAGNOSTIC STRIP TEST SCH ×4 (00:23→18:44)
[2019-02-26] MEDS: INSULIN LISPRO 100 UNITS/ML SUBCUT SCH ×4 (00:44→18:49)
[2019-02-26] MEDS: INSULIN GLARGINE UD 100 UNITS/ML SYR SUBCUT SCH ×3 (00:45→22:07)
[2019-02-26] MEDS: IPRATROPIUM/ALBUTEROL 0.5-3(2.5)MG/3ML NEB HHN SCH ×4 (02:57→20:46)
[2019-02-26] MEDS: PROPOFOL 10MG/ML 100ML 100 ML IV PRN ×2 (04:11→18:53)
[2019-02-26] MEDS: CEFEPIME 2,000 MG in DEXT 5% WATER 100 ML IV SCH (04:13)
[2019-02-26 06:20] LABS: HEMATOCRIT. 26.5 % (36.0-48.0); HEMOGLOBIN. 8.7 g/dL (12.0-16.0); MEAN CORPUSCULAR HEMOGLOBIN 26.5 pg (28.0-32.0); MEAN CORPUSCULAR VOLUME 80.7 fL (81.0-99.0); MEAN PLATELET VOLUME 9.8 fl (7.4-10.4); PLATELET 363 x1000/uL (130-400); RED BLOOD CELL COUNT 3.29 mill/uL (4.2-5.4); RED CELL DISTRIBUTION WIDTH 15.4 % (11.6-14.6)
[2019-02-26 08:36] LABS: PLATELET ESTIMATE NORMAL
[2019-02-26 08:38] LABS: BG BASE EXCESS -0.9 mmol/L (-2.0-2.0); BG CARBOXYHEMOGLOBIN 0.3 % (0.5-1.5); BG DEOXYHEMOGLOBIN 3.6 % (0.0-5.0); BG FRACTION INSPIRED OXYGEN 40; BG HCO3 ACT 23.3 mmol/L (22.0-26.0); BG METHEMOGLOBIN 0.2 % (0.0-1.5); BG OXYGEN SATURATION 96.4 % (92.0-98.5); BG OXYHEMOGLOBIN 95.9 % (94.0-97.0); BG PCO2 36.6 mmHg (35.0-45.0); BG PH 7.421 (7.350-7.450); BG PO2 86.4 mmHg (75.0-100.0); BG SAMPLE SITE RIGHT RADIAL; BG TIDAL VOLUME(mL) 500 mL; BG VENT MODE VENT - A/C; BG VENT RATE 12 set
[2019-02-26] MEDS: PANTOPRAZOLE SODIUM 40 MG/VIAL IV SCH (09:12)
[2019-02-26] MEDS: METOCLOPRAMIDE HCL 10MG/2ML VIAL IV SCH ×2 (12:24→18:52)
[2019-02-26] MEDS: FAT EMULSIONS 500 ML IV SCH (20:46)
[2019-02-26] MEDS ORDERED: TOTAL PARENTERAL NUTRITION 1,400 ML IV SCH (21:00)
[2019-02-26] MEDS ORDERED: PROPOFOL 10MG/ML 100ML 100 ML IV PRN (21:00)
[2019-02-27] VITALS (77 sets, daily range): BP systolic 104–158; BP diastolic 52–83
[2019-02-27] MEDS: BLOOD SUGAR DIAGNOSTIC STRIP TEST SCH ×4 (00:39→17:38)
[2019-02-27] MEDS: METOCLOPRAMIDE HCL 10MG/2ML VIAL IV SCH ×4 (00:45→17:40)
[2019-02-27] MEDS: INSULIN LISPRO 100 UNITS/ML SUBCUT SCH ×4 (00:46→17:40)
[2019-02-27] MEDS: IPRATROPIUM/ALBUTEROL 0.5-3(2.5)MG/3ML NEB HHN SCH ×3 (01:54→20:07)
[2019-02-27] MEDS: CEFEPIME 2,000 MG in DEXT 5% WATER 100 ML IV SCH (05:10)
[2019-02-27 06:38] LABS: HEMATOCRIT. 27.3 % (36.0-48.0); HEMOGLOBIN. 9.1 g/dL (12.0-16.0); MEAN CORPUSCULAR HEMOGLOBIN 26.7 pg (28.0-32.0); MEAN CORPUSCULAR VOLUME 80.1 fL (81.0-99.0); MEAN PLATELET VOLUME 9.7 fl (7.4-10.4); PLATELET 390 x1000/uL (130-400); RED BLOOD CELL COUNT 3.41 mill/uL (4.2-5.4); RED CELL DISTRIBUTION WIDTH 15.6 % (11.6-14.6)
[2019-02-27] MEDS ORDERED: PROPOFOL 10MG/ML 100ML 100 ML IV PRN (07:15)
[2019-02-27] MEDS ORDERED: BISACODYL 10MG SUPP PR SCH (08:45)
[2019-02-27] MEDS: INSULIN GLARGINE UD 100 UNITS/ML SYR SUBCUT SCH ×2 (09:28→21:47)
[2019-02-27] MEDS: PANTOPRAZOLE SODIUM 40 MG/VIAL IV SCH (09:28)
[2019-02-27] MEDS: FUROSEMIDE 40MG/4ML VIAL IVP SCH (09:32)
[2019-02-27 09:39] LABS: BG BASE EXCESS -5.3 mmol/L (-2.0-2.0); BG CARBOXYHEMOGLOBIN 0.3 % (0.5-1.5); BG DEOXYHEMOGLOBIN 3.8 % (0.0-5.0); BG FRACTION INSPIRED OXYGEN 40; BG HCO3 ACT 18.5 mmol/L (22.0-26.0); BG METHEMOGLOBIN 0.3 % (0.0-1.5); BG OXYGEN SATURATION 96.2 % (92.0-98.5); BG OXYHEMOGLOBIN 95.6 % (94.0-97.0); BG PCO2 29.9 mmHg (35.0-45.0); BG PH 7.409 (7.350-7.450); BG SAMPLE SITE RIGHT RADIAL; BG TIDAL VOLUME(mL) 500 mL; BG TOTAL HEMOGLOBIN 9.7 g/dL (12.0-18.0); BG VENT MODE VENT - A/C; BG VENT RATE 12 set
[2019-02-27 18:52] LABS: PLATELET ESTIMATE NORMAL
[2019-02-27] MEDS ORDERED: VANCOMYCIN 1 G PREMIX 200 ML IV SCH (21:00)
[2019-02-27] MEDS: TOTAL PARENTERAL NUTRITION 1,400 ML IV SCH (21:42)
[2019-02-28] VITALS (47 sets, daily range): BP systolic 114–186; BP diastolic 62–89
[2019-02-28] MEDS: BLOOD SUGAR DIAGNOSTIC STRIP TEST SCH ×5 (00:26→23:48)
[2019-02-28] MEDS: METOCLOPRAMIDE HCL 10MG/2ML VIAL IV SCH ×5 (00:31→23:40)
[2019-02-28] MEDS: INSULIN LISPRO 100 UNITS/ML SUBCUT SCH ×5 (00:32→23:48)
[2019-02-28] MEDS: IPRATROPIUM/ALBUTEROL 0.5-3(2.5)MG/3ML NEB HHN SCH (02:04)
[2019-02-28] MEDS: CEFEPIME 2,000 MG in DEXT 5% WATER 100 ML IV SCH (05:49)
[2019-02-28] MEDS ORDERED: DEXT 10% WATER 1,000 ML IV SCH (08:45)
[2019-02-28] MEDS: ALBUTEROL (0.083%) 2.5MG/3ML NEB HHN SCH ×3 (09:10→20:19)
[2019-02-28] MEDS: PANTOPRAZOLE SODIUM 40 MG/VIAL IV SCH (09:22)
[2019-02-28] MEDS: FUROSEMIDE 40MG/4ML VIAL IVP SCH (09:22)
[2019-02-28 09:23] LABS: BG BASE EXCESS -5.2 mmol/L (-2.0-2.0); BG CARBOXYHEMOGLOBIN 0.1 % (0.5-1.5); BG DEOXYHEMOGLOBIN 1.9 % (0.0-5.0); BG FRACTION INSPIRED OXYGEN 40; BG HCO3 ACT 18.7 mmol/L (22.0-26.0); BG METHEMOGLOBIN 0.2 % (0.0-1.5); BG OXYGEN SATURATION 98.1 % (92.0-98.5); BG OXYHEMOGLOBIN 97.8 % (94.0-97.0); BG PCO2 30.3 mmHg (35.0-45.0); BG PH 7.409 (7.350-7.450); BG PO2 116.8 mmHg (75.0-100.0); BG SAMPLE SITE RIGHT RADIAL; BG TIDAL VOLUME(mL) 500 mL; BG TOTAL HEMOGLOBIN 8.3 g/dL (12.0-18.0); BG VENT MODE VENT - A/C; BG VENT RATE 12 set
[2019-02-28] MEDS: DEXT 5%/0.45% NACL 1000ML 1,000 ML IV SCH (09:30)
[2019-02-28] MEDS: INSULIN GLARGINE UD 100 UNITS/ML SYR SUBCUT SCH ×2 (09:39→22:00)
[2019-02-28] MEDS ORDERED: BISACODYL 10MG SUPP PR NR (09:45)
[2019-02-28 10:07] LABS: HEMATOCRIT. 26.5 % (36.0-48.0); HEMOGLOBIN. 8.8 g/dL (12.0-16.0); MEAN CORPUSCULAR HEMOGLOBIN 26.2 pg (28.0-32.0); MEAN CORPUSCULAR VOLUME 78.9 fL (81.0-99.0); MEAN PLATELET VOLUME 9.6 fl (7.4-10.4); PLATELET 348 x1000/uL (130-400); RED BLOOD CELL COUNT 3.36 mill/uL (4.2-5.4); RED CELL DISTRIBUTION WIDTH 15.3 % (11.6-14.6)
[2019-02-28] MEDS: METRONIDAZOLE 500 MG PREMIX 100 ML IV SCH ×2 (14:00→23:40)
[2019-02-28 14:54] LABS: NUCLEATED RED BLOOD CELLS 1 /100 WBC; PLATELET ESTIMATE NORMAL
[2019-02-28] MEDS: ONDANSETRON HCL 4MG/2ML INJ IV PRN (20:23)
[2019-02-28] MEDS: DEXTROSE 50% WATER 50ML SYRINGE IV PRN (20:23)
[2019-02-28] MEDS ORDERED: TOTAL PARENTERAL NUTRITION 1,400 ML IV SCH (21:00)
[2019-02-28] MEDS: TOTAL PARENTERAL NUTRITION 1,400 ML IV SCH (21:00)
[2019-03-01] VITALS (34 sets, daily range): BP systolic 117–146; BP diastolic 63–76
[2019-03-01] MEDS: ALBUTEROL (0.083%) 2.5MG/3ML NEB HHN SCH ×4 (02:06→20:26)
[2019-03-01] MEDS: CEFEPIME 2,000 MG in DEXT 5% WATER 100 ML IV SCH (03:42)
[2019-03-01] MEDS: DEXT 5%/0.45% NACL 1000ML 1,000 ML IV SCH (05:30)
[2019-03-01] MEDS: METOCLOPRAMIDE HCL 10MG/2ML VIAL IV SCH ×4 (05:38→23:55)
[2019-03-01] MEDS: ONDANSETRON HCL 4MG/2ML INJ IV PRN (05:38)
[2019-03-01] MEDS: METRONIDAZOLE 500 MG PREMIX 100 ML IV SCH ×3 (05:39→22:13)
[2019-03-01] MEDS: BLOOD SUGAR DIAGNOSTIC STRIP TEST SCH ×4 (06:00→23:56)
[2019-03-01] MEDS: INSULIN LISPRO 100 UNITS/ML SUBCUT SCH ×3 (06:02→17:52)
[2019-03-01 06:08] LABS: HEMATOCRIT. 24.2 % (36.0-48.0); MEAN CORPUSCULAR HEMOGLOBIN 25.9 pg (28.0-32.0); MEAN CORPUSCULAR VOLUME 78.7 fL (81.0-99.0); MEAN PLATELET VOLUME 9.8 fl (7.4-10.4); PLATELET 341 x1000/uL (130-400); RED BLOOD CELL COUNT 3.08 mill/uL (4.2-5.4)
[2019-03-01] MEDS: PANTOPRAZOLE SODIUM 40 MG/VIAL IV SCH (08:20)
[2019-03-01] MEDS: FUROSEMIDE 40MG/4ML VIAL IVP SCH (08:20)
[2019-03-01 09:24] LABS: BG BASE EXCESS -6.1 mmol/L (-2.0-2.0); BG CARBOXYHEMOGLOBIN 0.4 % (0.5-1.5); BG DEOXYHEMOGLOBIN 1.8 % (0.0-5.0); BG FRACTION INSPIRED OXYGEN 40; BG HCO3 ACT 18.3 mmol/L (22.0-26.0); BG METHEMOGLOBIN 0.3 % (0.0-1.5); BG OXYGEN SATURATION 98.2 % (92.0-98.5); BG OXYHEMOGLOBIN 97.5 % (94.0-97.0); BG PCO2 31.5 mmHg (35.0-45.0); BG PH 7.381 (7.350-7.450); BG PO2 115.7 mmHg (75.0-100.0); BG SAMPLE SITE RIGHT RADIAL; BG TIDAL VOLUME(mL) 500 mL; BG TOTAL HEMOGLOBIN 8.1 g/dL (12.0-18.0); BG VENT MODE VENT - A/C; BG VENT RATE 10 set
[2019-03-01] MEDS: INSULIN GLARGINE UD 100 UNITS/ML SYR SUBCUT SCH ×2 (11:17→22:21)
[2019-03-01 12:48] LABS: INR 1.2; PARTIAL THROMBOPLASTIN TIME 31.3 sec (23.4-31.0); PROTHROMBIN TIME 12.4 sec (9.6-11.0)
[2019-03-01] MEDS ORDERED: SODIUM BICARBONATE 4% (2.4MEQ) 5ML VIAL IV ONE (13:35)
[2019-03-01] MEDS ORDERED: LIDOCAINE HCL 1% 20ML VIAL (Pyxis) INJ ONE (13:35)
[2019-03-01 14:31] LABS: PLATELET ESTIMATE NORMAL
[2019-03-01] MEDS ORDERED: HYDRALAZINE 20MG/ML VIAL IV PRN (18:15)
[2019-03-01] MEDS: TOTAL PARENTERAL NUTRITION 1,400 ML IV SCH (21:11)
[2019-03-01] MEDS: FAT EMULSIONS 500 ML IV SCH (21:28)
[2019-03-02] VITALS (37 sets, daily range): BP systolic 124–177; BP diastolic 60–86
[2019-03-02] MEDS: INSULIN LISPRO 100 UNITS/ML SUBCUT SCH ×4 (00:01→18:00)
[2019-03-02] MEDS: IPRATROPIUM/ALBUTEROL 0.5-3(2.5)MG/3ML NEB HHN PRN (02:24)
[2019-03-02] MEDS: CEFEPIME 2,000 MG in DEXT 5% WATER 100 ML IV SCH (04:28)
[2019-03-02 05:38] LABS: HEMATOCRIT. 24.1 % (36.0-48.0); HEMOGLOBIN. 8.3 g/dL (12.0-16.0); MEAN CORPUSCULAR HEMOGLOBIN 27.7 pg (28.0-32.0); MEAN CORPUSCULAR VOLUME 80.4 fL (81.0-99.0)
[2019-03-02 06:02] LABS: PHOSPHORUS 4.2 mg/dL (2.5-4.9)
[2019-03-02] MEDS: METRONIDAZOLE 500 MG PREMIX 100 ML IV SCH ×3 (06:29→23:23)
[2019-03-02] MEDS: METOCLOPRAMIDE HCL 10MG/2ML VIAL IV SCH ×3 (06:29→17:20)
[2019-03-02] MEDS: BLOOD SUGAR DIAGNOSTIC STRIP TEST SCH ×4 (06:30→23:50)
[2019-03-02] MEDS: DEXT 5%/0.45% NACL 1000ML 1,000 ML IV SCH (06:39)
[2019-03-02 06:44] LABS: BG BASE EXCESS -8.7 mmol/L (-2.0-2.0); BG CARBOXYHEMOGLOBIN 0.3 % (0.5-1.5); BG DEOXYHEMOGLOBIN 2.2 % (0.0-5.0); BG HCO3 ACT 15.6 mmol/L (22.0-26.0); BG METHEMOGLOBIN 0.2 % (0.0-1.5); BG OXYGEN SATURATION 97.8 % (92.0-98.5); BG OXYHEMOGLOBIN 97.3 % (94.0-97.0); BG PCO2 28.3 mmHg (35.0-45.0); BG PO2 109.9 mmHg (75.0-100.0); BG SAMPLE SITE RIGHT RADIAL; BG TIDAL VOLUME(mL) 500 mL; BG TOTAL HEMOGLOBIN 9.3 g/dL (12.0-18.0); BG VENT MODE VENT - A/C; BG VENT RATE 10 set
[2019-03-02] MEDS ORDERED: INSULIN LISPRO 100 UNITS/ML SUBCUT SCH (07:00)
[2019-03-02 07:49] LABS: PLATELET 329 x1000/uL (130-400)
[2019-03-02 07:52] LABS: PLATELET ESTIMATE NORMAL
[2019-03-02] MEDS: PANTOPRAZOLE SODIUM 40 MG/VIAL IV SCH (08:31)
[2019-03-02] MEDS: FUROSEMIDE 40MG/4ML VIAL IVP SCH (08:31)
[2019-03-02] MEDS: INSULIN GLARGINE UD 100 UNITS/ML SYR SUBCUT SCH ×2 (09:26→23:24)
[2019-03-02] MEDS ORDERED: INSULIN GLARGINE UD 100 UNITS/ML SYR SUBCUT SCH ×2 (10:00)
[2019-03-02] MEDS: ALBUTEROL (0.083%) 2.5MG/3ML NEB HHN SCH (20:27)
[2019-03-02] MEDS: TOTAL PARENTERAL NUTRITION 1,400 ML IV SCH (21:26)
[2019-03-03] VITALS (44 sets, daily range): BP systolic 121–176; BP diastolic 52–98
[2019-03-03] MEDS: INSULIN LISPRO 100 UNITS/ML SUBCUT SCH ×4 (00:32→18:09)
[2019-03-03] MEDS: METOCLOPRAMIDE HCL 10MG/2ML VIAL IV SCH ×4 (00:32→18:08)
[2019-03-03] MEDS: ALBUTEROL (0.083%) 2.5MG/3ML NEB HHN SCH ×3 (01:57→20:39)
[2019-03-03] MEDS: METRONIDAZOLE 500 MG PREMIX 100 ML IV SCH ×3 (05:16→22:04)
[2019-03-03] MEDS: BLOOD SUGAR DIAGNOSTIC STRIP TEST SCH ×3 (05:17→18:01)
[2019-03-03 06:57] LABS: HEMATOCRIT. 23.1 % (36.0-48.0); HEMOGLOBIN. 7.7 g/dL (12.0-16.0); MEAN CORPUSCULAR HEMOGLOBIN 25.8 pg (28.0-32.0); MEAN CORPUSCULAR VOLUME 77.3 fL (81.0-99.0); MEAN PLATELET VOLUME 9.4 fl (7.4-10.4); PLATELET 275 x1000/uL (130-400); RED CELL DISTRIBUTION WIDTH 15.8 % (11.6-14.6)
[2019-03-03] MEDS: IPRATROPIUM/ALBUTEROL 0.5-3(2.5)MG/3ML NEB HHN PRN (08:42)
[2019-03-03] MEDS: PANTOPRAZOLE SODIUM 40 MG/VIAL IV SCH (08:49)
[2019-03-03] MEDS: INSULIN GLARGINE UD 100 UNITS/ML SYR SUBCUT SCH ×2 (08:58→22:06)
[2019-03-03] MEDS ORDERED: LORAZEPAM 2MG/ML CPJ IV NR (11:30)
[2019-03-03] MEDS ORDERED: FLUCONAZOLE 200 MG/100ML BAG 100 ML IV SCH (13:00)
[2019-03-03 15:16] LABS: PLATELET ESTIMATE NORMAL
[2019-03-03 15:38] LABS: HEMATOCRIT 24.5 % (36.0-48.0)
[2019-03-03] MEDS: MICAFUNGIN 100 MG in SODIUM CHLORIDE 0.9% 100 ML IV SCH (16:29)
[2019-03-03] MEDS ORDERED: TOTAL PARENTERAL NUTRITION 1,400 ML IV SCH (21:00)
[2019-03-04] VITALS (58 sets, daily range): BP systolic 81–172; BP diastolic 52–102
[2019-03-04] MEDS: BLOOD SUGAR DIAGNOSTIC STRIP TEST SCH ×4 (00:01→17:29)
[2019-03-04] MEDS: METOCLOPRAMIDE HCL 10MG/2ML VIAL IV SCH ×4 (00:07→17:29)
[2019-03-04] MEDS: INSULIN LISPRO 100 UNITS/ML SUBCUT SCH ×4 (00:07→17:29)
[2019-03-04] MEDS: ALBUTEROL (0.083%) 2.5MG/3ML NEB HHN SCH ×4 (01:38→20:42)
[2019-03-04 05:38] LABS: HEMATOCRIT. 24.5 % (36.0-48.0); MEAN CORPUSCULAR HEMOGLOBIN 25.5 pg (28.0-32.0); MEAN CORPUSCULAR VOLUME 78.4 fL (81.0-99.0); MEAN PLATELET VOLUME 9.8 fl (7.4-10.4); PLATELET 262 x1000/uL (130-400); RED BLOOD CELL COUNT 3.13 mill/uL (4.2-5.4)
[2019-03-04 05:53] LABS: PHOSPHORUS 4.9 mg/dL (2.5-4.9)
[2019-03-04] MEDS: METRONIDAZOLE 500 MG PREMIX 100 ML IV SCH ×3 (06:19→21:15)
[2019-03-04] MEDS ORDERED: LIDOCAINE HCL 1% 20ML VIAL (Pyxis) INJ ONE (08:13)
[2019-03-04] MEDS: PANTOPRAZOLE SODIUM 40 MG/VIAL IV SCH (08:19)
[2019-03-04 08:31] LABS: BG BASE EXCESS -9.2 mmol/L (-2.0-2.0); BG CARBOXYHEMOGLOBIN 0.4 % (0.5-1.5); BG DEOXYHEMOGLOBIN 2.3 % (0.0-5.0); BG FRACTION INSPIRED OXYGEN 40; BG HCO3 ACT 15.8 mmol/L (22.0-26.0); BG METHEMOGLOBIN 0.3 % (0.0-1.5); BG OXYGEN SATURATION 97.7 % (92.0-98.5); BG PCO2 30.8 mmHg (35.0-45.0); BG PH 7.328 (7.350-7.450); BG PO2 106.5 mmHg (75.0-100.0); BG PRESSURE SUPPORT 14; BG SAMPLE SITE RIGHT RADIAL; BG TIDAL VOLUME(mL) 500 mL; BG TOTAL HEMOGLOBIN 8.2 g/dL (12.0-18.0); BG VENT MODE VENT - SIMV; BG VENT RATE 8 set
[2019-03-04] MEDS: INSULIN GLARGINE UD 100 UNITS/ML SYR SUBCUT SCH ×2 (10:28→21:46)
[2019-03-04 11:16] LABS: PLATELET ESTIMATE NORMAL
[2019-03-04] MEDS ORDERED: ALBUMIN HUMAN 12.5GM/50ML (25%) IV NR (13:00)
[2019-03-04] MEDS ORDERED: DILTIAZEM HCL 5MG/ML 5ML VIAL IV NR (15:15)
[2019-03-04] MEDS: DILTIAZEM HCL 125 MG in DEXT 5% WATER 100 ML IV PRN (15:26)
[2019-03-04] MEDS: MICAFUNGIN 100 MG in SODIUM CHLORIDE 0.9% 100 ML IV SCH (17:19)
[2019-03-04] MEDS: MORPHINE SULFATE 2 MG/ML CPJ (NOT FOR IM USE) IV PRN ×2 (17:19→21:17)
[2019-03-04] MEDS ORDERED: TOTAL PARENTERAL NUTRITION 1,400 ML IV SCH (21:00)
[2019-03-05] VITALS (97 sets, daily range): BP systolic 104–162; BP diastolic 48–83
[2019-03-05] MEDS: ALBUTEROL (0.083%) 2.5MG/3ML NEB HHN SCH ×4 (01:33→20:18)
[2019-03-05] MEDS: MORPHINE SULFATE 2 MG/ML CPJ (NOT FOR IM USE) IV PRN ×2 (05:25→17:04)
[2019-03-05] MEDS: METOCLOPRAMIDE HCL 10MG/2ML VIAL IV SCH ×4 (05:32→17:01)
[2019-03-05] MEDS: METRONIDAZOLE 500 MG PREMIX 100 ML IV SCH ×3 (05:32→22:12)
[2019-03-05] MEDS: INSULIN LISPRO 100 UNITS/ML SUBCUT SCH ×4 (06:00→18:00)
[2019-03-05] MEDS: BLOOD SUGAR DIAGNOSTIC STRIP TEST SCH ×5 (06:31→23:58)
[2019-03-05 06:58] LABS: CHLORIDE 99 mEq/L (98-107)
[2019-03-05] MEDS: DILTIAZEM HCL 125 MG in DEXT 5% WATER 100 ML IV PRN ×2 (07:02→15:49)
[2019-03-05 07:08] LABS: PHOSPHORUS 3.9 mg/dL (2.5-4.9)
[2019-03-05 07:09] LABS: LDL CHOLESTEROL 25 mg/dL (5-100); MEAN CORPUSCULAR HEMOGLOBIN 25.5 pg (28.0-32.0); MEAN CORPUSCULAR VOLUME 76.1 fL (81.0-99.0); MEAN PLATELET VOLUME 9.5 fl (7.4-10.4); PLATELET 191 x1000/uL (130-400); RED BLOOD CELL COUNT 2.59 mill/uL (4.2-5.4); RED CELL DISTRIBUTION WIDTH 15.8 % (11.6-14.6)
[2019-03-05 07:12] LABS: HDL CHOLESTEROL 14 mg/dL (40-59)
[2019-03-05 07:24] LABS: HEMATOCRIT. 19.7 % (36.0-48.0); HEMOGLOBIN. 6.6 g/dL (12.0-16.0)
[2019-03-05 08:49] LABS: BG BASE EXCESS -3.2 mmol/L (-2.0-2.0); BG CARBOXYHEMOGLOBIN 0.1 % (0.5-1.5); BG DEOXYHEMOGLOBIN 3.4 % (0.0-5.0); BG FRACTION INSPIRED OXYGEN 40; BG HCO3 ACT 20.7 mmol/L (22.0-26.0); BG METHEMOGLOBIN 0.7 % (0.0-1.5); BG OXYGEN SATURATION 96.6 % (92.0-98.5); BG OXYHEMOGLOBIN 95.8 % (94.0-97.0); BG PH 7.429 (7.350-7.450); BG PO2 95.2 mmHg (75.0-100.0); BG SAMPLE SITE RIGHT RADIAL; BG TIDAL VOLUME(mL) 500 mL; BG TOTAL HEMOGLOBIN 7.1 g/dL (12.0-18.0); BG VENT MODE VENT - SIMV; BG VENT RATE 8 set
[2019-03-05] MEDS: PANTOPRAZOLE SODIUM 40 MG/VIAL IV SCH (09:06)
[2019-03-05] MEDS: IPRATROPIUM/ALBUTEROL 0.5-3(2.5)MG/3ML NEB HHN PRN (09:08)
[2019-03-05 09:19] LABS: PLATELET ESTIMATE NORMAL
[2019-03-05] MEDS: INSULIN GLARGINE UD 100 UNITS/ML SYR SUBCUT SCH ×2 (10:00→22:19)
[2019-03-05] MEDS ORDERED: KCL 20MEQ/100ML PREMIX 100 ML IV NR (11:00)
[2019-03-05] MEDS ORDERED: MAGNESIUM 2 G PREMIX 50 ML IV NR (11:00)
[2019-03-05 11:44] LABS: BG BASE EXCESS -2.6 mmol/L (-2.0-2.0); BG CARBOXYHEMOGLOBIN 0.7 % (0.5-1.5); BG DEOXYHEMOGLOBIN 4.7 % (0.0-5.0); BG FRACTION INSPIRED OXYGEN 40; BG HCO3 ACT 21.7 mmol/L (22.0-26.0); BG METHEMOGLOBIN 0.3 % (0.0-1.5); BG OXYGEN SATURATION 95.3 % (92.0-98.5); BG OXYHEMOGLOBIN 94.3 % (94.0-97.0); BG PCO2 35.3 mmHg (35.0-45.0); BG PH 7.407 (7.350-7.450); BG PO2 77.1 mmHg (75.0-100.0); BG PRESSURE SUPPORT 8; BG SAMPLE SITE RIGHT RADIAL; BG VENT MODE VENT - CPAP
[2019-03-05 11:50] LABS: HEMATOCRIT 20.5 % (36.0-48.0); HEMOGLOBIN 6.7 g/dL (12.0-16.0)
[2019-03-05] MEDS: MICAFUNGIN 100 MG in SODIUM CHLORIDE 0.9% 100 ML IV SCH (13:18)
[2019-03-05] MEDS ORDERED: TOTAL PARENTERAL NUTRITION 1,400 ML IV SCH (21:00)
[2019-03-05] MEDS: FAT EMULSIONS 500 ML IV SCH ×2 (21:33→21:46)
[2019-03-06] VITALS (66 sets, daily range): BP systolic 96–176; BP diastolic 45–89
[2019-03-06] MEDS: INSULIN LISPRO 100 UNITS/ML SUBCUT SCH ×5 (00:03→23:43)
[2019-03-06] MEDS: METOCLOPRAMIDE HCL 10MG/2ML VIAL IV SCH ×5 (00:19→23:44)
[2019-03-06] MEDS: ALBUTEROL (0.083%) 2.5MG/3ML NEB HHN SCH ×4 (02:08→20:26)
[2019-03-06] MEDS: DILTIAZEM HCL 125 MG in DEXT 5% WATER 100 ML IV PRN ×2 (02:58→14:34)
[2019-03-06] MEDS: MORPHINE SULFATE 2 MG/ML CPJ (NOT FOR IM USE) IV PRN (03:24)
[2019-03-06] MEDS: METRONIDAZOLE 500 MG PREMIX 100 ML IV SCH (05:41)
[2019-03-06] MEDS: BLOOD SUGAR DIAGNOSTIC STRIP TEST SCH ×4 (05:41→23:42)
[2019-03-06 05:58] LABS: HEMATOCRIT. 27.4 % (36.0-48.0); HEMOGLOBIN. 9.7 g/dL (12.0-16.0); MEAN CORPUSCULAR HEMOGLOBIN 27.2 pg (28.0-32.0); MEAN CORPUSCULAR VOLUME 77.1 fL (81.0-99.0); MEAN PLATELET VOLUME 9.5 fl (7.4-10.4); PLATELET 214 x1000/uL (130-400); RED BLOOD CELL COUNT 3.55 mill/uL (4.2-5.4); RED CELL DISTRIBUTION WIDTH 16.6 % (11.6-14.6)
[2019-03-06 06:24] LABS: PHOSPHORUS 4.2 mg/dL (2.5-4.9)
[2019-03-06] MEDS: PANTOPRAZOLE SODIUM 40 MG/VIAL IV SCH (09:09)
[2019-03-06] MEDS ORDERED: SODIUM CHLORIDE 0.9% 10ML VIAL ONE (09:40)
[2019-03-06] MEDS ORDERED: ETOMIDATE 2MG/ML 10ML VIAL IV ONE (09:40)
[2019-03-06] MEDS ORDERED: VECURONIUM BROMIDE 10 MG/VIAL IV ONE (09:40)
[2019-03-06] MEDS: INSULIN GLARGINE UD 100 UNITS/ML SYR SUBCUT SCH ×2 (10:17→22:40)
[2019-03-06] MEDS: PROPOFOL 10MG/ML 100ML 100 ML IV PRN (10:30)
[2019-03-06 10:57] LABS: BG BASE EXCESS -5.2 mmol/L (-2.0-2.0); BG CARBOXYHEMOGLOBIN 0.3 % (0.5-1.5); BG FRACTION INSPIRED OXYGEN 100; BG HCO3 ACT 22.1 mmol/L (22.0-26.0); BG METHEMOGLOBIN 0.3 % (0.0-1.5); BG OXYHEMOGLOBIN 96.4 % (94.0-97.0); BG PH 7.246 (7.350-7.450); BG PO2 106.9 mmHg (75.0-100.0); BG SAMPLE SITE RIGHT RADIAL; BG TIDAL VOLUME(mL) 500 mL; BG TOTAL HEMOGLOBIN 9.8 g/dL (12.0-18.0); BG VENT MODE VENT - A/C; BG VENT RATE 12 set
[2019-03-06] MEDS: MICAFUNGIN 100 MG in SODIUM CHLORIDE 0.9% 100 ML IV SCH (13:29)
[2019-03-06 13:56] LABS: BG BASE EXCESS -5.3 mmol/L (-2.0-2.0); BG CARBOXYHEMOGLOBIN 0.3 % (0.5-1.5); BG DEOXYHEMOGLOBIN 2.7 % (0.0-5.0); BG FRACTION INSPIRED OXYGEN 80; BG HCO3 ACT 21.1 mmol/L (22.0-26.0); BG METHEMOGLOBIN 0.3 % (0.0-1.5); BG OXYGEN SATURATION 97.3 % (92.0-98.5); BG OXYHEMOGLOBIN 96.7 % (94.0-97.0); BG PH 7.288 (7.350-7.450); BG PO2 105.3 mmHg (75.0-100.0); BG SAMPLE SITE RIGHT RADIAL; BG TIDAL VOLUME(mL) 500 mL; BG TOTAL HEMOGLOBIN 9.7 g/dL (12.0-18.0); BG VENT MODE VENT - A/C; BG VENT RATE 16 set
[2019-03-06] MEDS: MEROPENEM 1,000 MG in SODIUM CHLORIDE 0.9% 100 ML IV SCH (14:04)
[2019-03-06 19:12] LABS: PLATELET ESTIMATE NORMAL
[2019-03-06] MEDS ORDERED: TOTAL PARENTERAL NUTRITION 1,400 ML IV SCH (21:00)
[2019-03-07] VITALS (45 sets, daily range): BP systolic 107–152; BP diastolic 47–82
[2019-03-07] MEDS: ALBUTEROL (0.083%) 2.5MG/3ML NEB HHN SCH ×4 (01:32→20:38)
[2019-03-07] MEDS: DILTIAZEM HCL 125 MG in DEXT 5% WATER 100 ML IV PRN (02:37)
[2019-03-07] MEDS: INSULIN LISPRO 100 UNITS/ML SUBCUT SCH ×4 (05:48→23:57)
[2019-03-07] MEDS: BLOOD SUGAR DIAGNOSTIC STRIP TEST SCH ×4 (05:48→23:57)
[2019-03-07] MEDS: DEXTROSE 50% WATER 50ML SYRINGE IV PRN ×4 (05:49→22:46)
[2019-03-07] MEDS: ACETAMINOPHEN 650MG SUPP PR PRN (06:04)
[2019-03-07] MEDS: PROPOFOL 10MG/ML 100ML 100 ML IV PRN (06:09)
[2019-03-07] MEDS: ONDANSETRON HCL 4MG/2ML INJ IV PRN (06:11)
[2019-03-07] MEDS: METOCLOPRAMIDE HCL 10MG/2ML VIAL IV SCH ×3 (06:44→18:22)
[2019-03-07 08:01] LABS: BG BASE EXCESS 0.1 mmol/L (-2.0-2.0); BG CARBOXYHEMOGLOBIN 0.3 % (0.5-1.5); BG DEOXYHEMOGLOBIN 2.1 % (0.0-5.0); BG FRACTION INSPIRED OXYGEN 60; BG HCO3 ACT 24.3 mmol/L (22.0-26.0); BG METHEMOGLOBIN 0.4 % (0.0-1.5); BG OXYGEN SATURATION 97.9 % (92.0-98.5); BG OXYHEMOGLOBIN 97.2 % (94.0-97.0); BG PCO2 37.3 mmHg (35.0-45.0); BG PH 7.431 (7.350-7.450); BG PO2 115.6 mmHg (75.0-100.0); BG SAMPLE SITE RIGHT RADIAL; BG TIDAL VOLUME(mL) 500 mL; BG TOTAL HEMOGLOBIN 8.9 g/dL (12.0-18.0); BG VENT MODE VENT - A/C; BG VENT RATE 16 set
[2019-03-07 08:27] LABS: HEMATOCRIT. 27.9 % (36.0-48.0); HEMOGLOBIN. 9.2 g/dL (12.0-16.0); MEAN CORPUSCULAR HEMOGLOBIN 25.7 pg (28.0-32.0); MEAN CORPUSCULAR VOLUME 77.8 fL (81.0-99.0); RED BLOOD CELL COUNT 3.58 mill/uL (4.2-5.4); RED CELL DISTRIBUTION WIDTH 16.7 % (11.6-14.6)
[2019-03-07] MEDS: PANTOPRAZOLE SODIUM 40 MG/VIAL IV SCH (10:45)
[2019-03-07] MEDS: INSULIN GLARGINE UD 100 UNITS/ML SYR SUBCUT SCH ×2 (10:45→21:47)
[2019-03-07 10:49] LABS: PLATELET ESTIMATE NORMAL
[2019-03-07 10:50] LABS: MEAN PLATELET VOLUME 9.9 fl (7.4-10.4); PLATELET 179 x1000/uL (130-400)
[2019-03-07] MEDS: MEROPENEM 1,000 MG in SODIUM CHLORIDE 0.9% 100 ML IV SCH (12:11)
[2019-03-07] MEDS: METOPROLOL TARTRATE 50MG TABLET PO SCH ×2 (12:11→21:54)
[2019-03-07 13:18] LABS: BG BASE EXCESS -0.2 mmol/L (-2.0-2.0); BG CARBOXYHEMOGLOBIN 0.3 % (0.5-1.5); BG DEOXYHEMOGLOBIN 1.8 % (0.0-5.0); BG FRACTION INSPIRED OXYGEN 60; BG HCO3 ACT 23.2 mmol/L (22.0-26.0); BG METHEMOGLOBIN 0.3 % (0.0-1.5); BG OXYGEN SATURATION 98.2 % (92.0-98.5); BG OXYHEMOGLOBIN 97.6 % (94.0-97.0); BG PCO2 33.2 mmHg (35.0-45.0); BG PH 7.463 (7.350-7.450); BG SAMPLE SITE RIGHT RADIAL; BG TIDAL VOLUME(mL) 500 mL; BG TOTAL HEMOGLOBIN 9.5 g/dL (12.0-18.0); BG VENT MODE VENT - A/C; BG VENT RATE 16 set
[2019-03-07] MEDS: MICAFUNGIN 100 MG in SODIUM CHLORIDE 0.9% 100 ML IV SCH (13:25)
[2019-03-07] MEDS: MORPHINE SULFATE 2 MG/ML CPJ (NOT FOR IM USE) IV PRN ×2 (15:50→22:35)
[2019-03-07] MEDS ORDERED: TOTAL PARENTERAL NUTRITION 1,400 ML IV SCH (21:00)
[2019-03-08] VITALS (62 sets, daily range): BP systolic 96–182; BP diastolic 44–119
[2019-03-08] MEDS: METOCLOPRAMIDE HCL 10MG/2ML VIAL IV SCH ×4 (00:54→17:23)
[2019-03-08] MEDS: ALBUTEROL (0.083%) 2.5MG/3ML NEB HHN SCH ×4 (02:24→20:34)
[2019-03-08] MEDS: DEXTROSE 50% WATER 50ML SYRINGE IV PRN ×3 (05:04→16:28)
[2019-03-08] MEDS: BLOOD SUGAR DIAGNOSTIC STRIP TEST SCH ×7 (06:00→18:03)
[2019-03-08 06:18] LABS: HEMATOCRIT. 27.3 % (36.0-48.0); MEAN CORPUSCULAR HEMOGLOBIN 25.8 pg (28.0-32.0); MEAN CORPUSCULAR VOLUME 77.9 fL (81.0-99.0); MEAN PLATELET VOLUME 9.7 fl (7.4-10.4); PLATELET 182 x1000/uL (130-400); RED BLOOD CELL COUNT 3.51 mill/uL (4.2-5.4); RED CELL DISTRIBUTION WIDTH 17.1 % (11.6-14.6)
[2019-03-08 06:54] LABS: INR 1.4; PROTHROMBIN TIME 14.3 sec (9.6-11.0)
[2019-03-08] MEDS: INSULIN LISPRO 100 UNITS/ML SUBCUT SCH ×4 (08:00→20:00)
[2019-03-08 08:05] LABS: BG BASE EXCESS 0.1 mmol/L (-2.0-2.0); BG CARBOXYHEMOGLOBIN 0.3 % (0.5-1.5); BG DEOXYHEMOGLOBIN 0.8 % (0.0-5.0); BG FRACTION INSPIRED OXYGEN 60; BG HCO3 ACT 24.1 mmol/L (22.0-26.0); BG METHEMOGLOBIN 0.3 % (0.0-1.5); BG OXYGEN SATURATION 99.2 % (92.0-98.5); BG OXYHEMOGLOBIN 98.6 % (94.0-97.0); BG PCO2 36.8 mmHg (35.0-45.0); BG PH 7.434 (7.350-7.450); BG PO2 195.4 mmHg (75.0-100.0); BG SAMPLE SITE RIGHT RADIAL; BG TIDAL VOLUME(mL) 500 mL; BG TOTAL HEMOGLOBIN 10.5 g/dL (12.0-18.0); BG VENT MODE VENT - A/C; BG VENT RATE 16 set
[2019-03-08 08:27] LABS: PLATELET ESTIMATE NORMAL
[2019-03-08] MEDS: METOPROLOL TARTRATE 50MG TABLET PO SCH ×2 (08:48→21:16)
[2019-03-08] MEDS ORDERED: DEXT 10% WATER 1,000 ML IV SCH ×2 (09:00→10:00)
[2019-03-08] MEDS: INSULIN GLARGINE UD 100 UNITS/ML SYR SUBCUT SCH ×2 (10:00→22:24)
[2019-03-08] MEDS: PANTOPRAZOLE SODIUM 40 MG/VIAL IV SCH (12:34)
[2019-03-08] MEDS: MEROPENEM 1,000 MG in SODIUM CHLORIDE 0.9% 100 ML IV SCH (12:35)
[2019-03-08] MEDS: MICAFUNGIN 100 MG in SODIUM CHLORIDE 0.9% 100 ML IV SCH (16:31)
[2019-03-08] MEDS ORDERED: CEFAZOLIN SODIUM 1000MG/VIAL ONE (19:14)
[2019-03-08] MEDS ORDERED: ROCURONIUM BROMIDE 10MG/ML VIAL 5ML IV ONE ×2 (19:16→19:26)
[2019-03-08] MEDS ORDERED: TOTAL PARENTERAL NUTRITION 1,400 ML IV SCH (21:00)
[2019-03-08] MEDS: FAT EMULSIONS 500 ML IV SCH (21:15)
[2019-03-09] VITALS (42 sets, daily range): BP systolic 130–162; BP diastolic 57–103
[2019-03-09] MEDS: METOCLOPRAMIDE HCL 10MG/2ML VIAL IV SCH ×4 (00:16→18:32)
[2019-03-09] MEDS: BLOOD SUGAR DIAGNOSTIC STRIP TEST SCH ×9 (00:28→23:49)
[2019-03-09] MEDS: INSULIN LISPRO 100 UNITS/ML SUBCUT SCH ×7 (00:41→23:49)
[2019-03-09] MEDS: ALBUTEROL (0.083%) 2.5MG/3ML NEB HHN SCH ×5 (02:10→21:20)
[2019-03-09 06:14] LABS: HEMOGLOBIN. 8.6 g/dL (12.0-16.0); MEAN CORPUSCULAR HEMOGLOBIN 26.6 pg (28.0-32.0); MEAN CORPUSCULAR VOLUME 77.1 fL (81.0-99.0); PLATELET 170 x1000/uL (130-400); RED BLOOD CELL COUNT 3.24 mill/uL (4.2-5.4)
[2019-03-09 08:19] LABS: PLATELET ESTIMATE NORMAL
[2019-03-09] MEDS: PANTOPRAZOLE SODIUM 40 MG/VIAL IV SCH (08:30)
[2019-03-09] MEDS: METOPROLOL TARTRATE 50MG TABLET PO SCH ×2 (08:31→21:22)
[2019-03-09] MEDS: MORPHINE SULFATE 2 MG/ML CPJ (NOT FOR IM USE) IV PRN (08:32)
[2019-03-09 09:46] LABS: BG CARBOXYHEMOGLOBIN 0.3 % (0.5-1.5); BG DEOXYHEMOGLOBIN 2.5 % (0.0-5.0); BG FRACTION INSPIRED OXYGEN 40; BG HCO3 ACT 25.8 mmol/L (22.0-26.0); BG METHEMOGLOBIN 0.3 % (0.0-1.5); BG OXYGEN SATURATION 97.5 % (92.0-98.5); BG OXYHEMOGLOBIN 96.9 % (94.0-97.0); BG PCO2 36.7 mmHg (35.0-45.0); BG PH 7.464 (7.350-7.450); BG PO2 101.5 mmHg (75.0-100.0); BG SAMPLE SITE RIGHT RADIAL; BG TIDAL VOLUME(mL) 500 mL; BG TOTAL HEMOGLOBIN 8.9 g/dL (12.0-18.0); BG VENT MODE VENT - A/C; BG VENT RATE 16 set
[2019-03-09] MEDS ORDERED: KCL 20MEQ/100ML PREMIX 100 ML IV SCH (10:00)
[2019-03-09] MEDS: MEROPENEM 1,000 MG in SODIUM CHLORIDE 0.9% 100 ML IV SCH (13:39)
[2019-03-09] MEDS: MICAFUNGIN 100 MG in SODIUM CHLORIDE 0.9% 100 ML IV SCH (15:23)
[2019-03-09] MEDS: TOTAL PARENTERAL NUTRITION 1,400 ML IV SCH (21:28)
[2019-03-10] VITALS (43 sets, daily range): BP systolic 103–174; BP diastolic 55–124
[2019-03-10] MEDS: METOCLOPRAMIDE HCL 10MG/2ML VIAL IV SCH ×4 (00:11→17:25)
[2019-03-10] MEDS: ALBUTEROL (0.083%) 2.5MG/3ML NEB HHN SCH ×4 (01:48→20:38)
[2019-03-10] MEDS: INSULIN LISPRO 100 UNITS/ML SUBCUT SCH ×5 (05:00→20:22)
[2019-03-10] MEDS: BLOOD SUGAR DIAGNOSTIC STRIP TEST SCH ×7 (05:04→18:41)
[2019-03-10 06:46] LABS: HEMATOCRIT. 25.5 % (36.0-48.0); HEMOGLOBIN. 8.5 g/dL (12.0-16.0); MEAN CORPUSCULAR VOLUME 78.3 fL (81.0-99.0); MEAN PLATELET VOLUME 10.3 fl (7.4-10.4); PLATELET 178 x1000/uL (130-400); RED BLOOD CELL COUNT 3.26 mill/uL (4.2-5.4); RED CELL DISTRIBUTION WIDTH 17.8 % (11.6-14.6)
[2019-03-10 07:58] LABS: PHOSPHORUS 4.9 mg/dL (2.5-4.9)
[2019-03-10] MEDS: PANTOPRAZOLE SODIUM 40 MG/VIAL IV SCH (08:14)
[2019-03-10 08:54] LABS: PLATELET ESTIMATE NORMAL
[2019-03-10] MEDS: METOPROLOL TARTRATE 5MG/5ML VIAL IV SCH ×3 (10:30→22:37)
[2019-03-10] MEDS: MEROPENEM 1,000 MG in SODIUM CHLORIDE 0.9% 100 ML IV SCH (13:07)
[2019-03-10] MEDS: MICAFUNGIN 100 MG in SODIUM CHLORIDE 0.9% 100 ML IV SCH (15:32)
[2019-03-10] MEDS: TOTAL PARENTERAL NUTRITION 1,400 ML IV SCH (21:00)
[2019-03-10] MEDS ORDERED: TOTAL PARENTERAL NUTRITION 1,400 ML IV SCH (21:00)
[2019-03-11] VITALS (40 sets, daily range): BP systolic 114–149; BP diastolic 49–93
[2019-03-11] MEDS: METOCLOPRAMIDE HCL 10MG/2ML VIAL IV SCH ×5 (00:24→23:36)
[2019-03-11] MEDS: BLOOD SUGAR DIAGNOSTIC STRIP TEST SCH ×9 (00:24→20:06)
[2019-03-11] MEDS: ALBUTEROL (0.083%) 2.5MG/3ML NEB HHN SCH ×3 (00:37→20:39)
[2019-03-11] MEDS: INSULIN LISPRO 100 UNITS/ML SUBCUT SCH ×6 (04:19→20:00)
[2019-03-11 05:56] LABS: HEMATOCRIT. 24.6 % (36.0-48.0); HEMOGLOBIN. 8.1 g/dL (12.0-16.0); MEAN CORPUSCULAR HEMOGLOBIN 25.7 pg (28.0-32.0); MEAN CORPUSCULAR VOLUME 77.7 fL (81.0-99.0); MEAN PLATELET VOLUME 10.7 fl (7.4-10.4); PLATELET 185 x1000/uL (130-400); RED BLOOD CELL COUNT 3.17 mill/uL (4.2-5.4); RED CELL DISTRIBUTION WIDTH 17.8 % (11.6-14.6)
[2019-03-11] MEDS: METOPROLOL TARTRATE 5MG/5ML VIAL IV SCH ×5 (06:56→23:36)
[2019-03-11] MEDS ORDERED: METOPROLOL TARTRATE 5MG/5ML VIAL IV SCH (08:00)
[2019-03-11] MEDS: PANTOPRAZOLE SODIUM 40 MG/VIAL IV SCH (08:40)
[2019-03-11 10:27] LABS: PLATELET ESTIMATE NORMAL
[2019-03-11] MEDS: MEROPENEM 1,000 MG in SODIUM CHLORIDE 0.9% 100 ML IV SCH (12:51)
[2019-03-11 14:24] LABS: BG BASE EXCESS 0.7 mmol/L (-2.0-2.0); BG CARBOXYHEMOGLOBIN 0.3 % (0.5-1.5); BG DEOXYHEMOGLOBIN 2.4 % (0.0-5.0); BG HCO3 ACT 25.1 mmol/L (22.0-26.0); BG OXYGEN SATURATION 97.6 % (92.0-98.5); BG OXYHEMOGLOBIN 97.3 % (94.0-97.0); BG PCO2 39.3 mmHg (35.0-45.0); BG PH 7.424 (7.350-7.450); BG PO2 110.3 mmHg (75.0-100.0); BG SAMPLE SITE RIGHT RADIAL; BG TIDAL VOLUME(mL) 500 mL; BG TOTAL HEMOGLOBIN 8.6 g/dL (12.0-18.0); BG VENT MODE VENT - A/C; BG VENT RATE 14 set
[2019-03-11] MEDS: MICAFUNGIN 100 MG in SODIUM CHLORIDE 0.9% 100 ML IV SCH (15:24)
[2019-03-11] MEDS ORDERED: TOTAL PARENTERAL NUTRITION 1,400 ML IV SCH (21:00)
[2019-03-12] VITALS (26 sets, daily range): BP systolic 117–158; BP diastolic 40–85
[2019-03-12] MEDS: BLOOD SUGAR DIAGNOSTIC STRIP TEST SCH ×6 (00:52→17:08)
[2019-03-12] MEDS: ALBUTEROL (0.083%) 2.5MG/3ML NEB HHN SCH ×4 (02:10→20:17)
[2019-03-12] MEDS: INSULIN LISPRO 100 UNITS/ML SUBCUT SCH ×5 (04:00→18:00)
[2019-03-12] MEDS: METOPROLOL TARTRATE 5MG/5ML VIAL IV SCH ×3 (05:02→18:06)
[2019-03-12] MEDS: METOCLOPRAMIDE HCL 10MG/2ML VIAL IV SCH ×2 (05:02→11:00)
[2019-03-12 05:53] LABS: HEMATOCRIT. 24.6 % (36.0-48.0); HEMOGLOBIN. 8.3 g/dL (12.0-16.0); MEAN CORPUSCULAR VOLUME 77.3 fL (81.0-99.0); MEAN PLATELET VOLUME 10.2 fl (7.4-10.4); PLATELET 202 x1000/uL (130-400); RED BLOOD CELL COUNT 3.19 mill/uL (4.2-5.4); RED CELL DISTRIBUTION WIDTH 18.4 % (11.6-14.6)
[2019-03-12 08:06] LABS: PLATELET ESTIMATE NORMAL
[2019-03-12] MEDS: PANTOPRAZOLE SODIUM 40 MG/VIAL IV SCH (08:47)
[2019-03-12] MEDS: MEROPENEM 1,000 MG in SODIUM CHLORIDE 0.9% 100 ML IV SCH ×2 (12:08→18:16)
[2019-03-12 14:38] LABS: HEPATITIS B SURFACE AB < 3.1 mIU/mL
[2019-03-12 14:50] LABS: HEPATITIS B SURFACE ANTIGEN NEGATIVE
[2019-03-12] MEDS: MICAFUNGIN 100 MG in SODIUM CHLORIDE 0.9% 100 ML IV SCH (15:00)
[2019-03-12 15:18] LABS: HEPATITIS A AB IGM NEGATIVE (NEGATIVE)
[2019-03-13] VITALS (9 sets, daily range): BP systolic 139–152; BP diastolic 65–82
[2019-03-13] MEDS: BLOOD SUGAR DIAGNOSTIC STRIP TEST SCH ×4 (06:00→17:56)
[2019-03-13] MEDS: PANTOPRAZOLE SODIUM 40 MG/VIAL IV SCH (09:26)
[2019-03-13 09:54] LABS: HEMATOCRIT. 23.4 % (36.0-48.0); HEMOGLOBIN. 7.8 g/dL (12.0-16.0); MEAN CORPUSCULAR HEMOGLOBIN 25.9 pg (28.0-32.0); MEAN PLATELET VOLUME 10.5 fl (7.4-10.4); PLATELET 228 x1000/uL (130-400); RED CELL DISTRIBUTION WIDTH 18.1 % (11.6-14.6)
[2019-03-13] MEDS: INSULIN LISPRO 100 UNITS/ML SUBCUT SCH ×2 (12:00→17:57)
[2019-03-13] MEDS: MEROPENEM 1,000 MG in SODIUM CHLORIDE 0.9% 100 ML IV SCH (13:00)
[2019-03-13] MEDS: ALBUTEROL (0.083%) 2.5MG/3ML NEB HHN SCH ×2 (13:59→20:23)
[2019-03-13] MEDS: MICAFUNGIN 100 MG in SODIUM CHLORIDE 0.9% 100 ML IV SCH (16:30)
[2019-03-13] MEDS: METOPROLOL TARTRATE 5MG/5ML VIAL IV SCH ×2 (17:29→23:09)
[2019-03-13 17:38] LABS: PLATELET ESTIMATE NORMAL
[2019-03-14] VITALS (12 sets, daily range): BP systolic 127–165; BP diastolic 58–101
[2019-03-14] MEDS: ALBUTEROL (0.083%) 2.5MG/3ML NEB HHN SCH ×3 (03:16→12:36)
[2019-03-14] MEDS: INSULIN LISPRO 100 UNITS/ML SUBCUT SCH ×5 (06:00→23:21)
[2019-03-14] MEDS: BLOOD SUGAR DIAGNOSTIC STRIP TEST SCH ×5 (06:00→23:20)
[2019-03-14 06:21] LABS: BASOPHILS % 0.6 % (0.0-2.0); HEMATOCRIT. 23.5 % (36.0-48.0); HEMOGLOBIN. 7.9 g/dL (12.0-16.0); LYMPHOCYTES % 8.8 % (20.0-50.0); MEAN CORPUSCULAR HEMOGLOBIN 26.1 pg (28.0-32.0); MEAN CORPUSCULAR VOLUME 77.2 fL (81.0-99.0); MEAN PLATELET VOLUME 11.1 fl (7.4-10.4); MONOCYTES % 10.8 % (2.0-8.0); NEUTROPHILS % 78.8 % (40.0-76.0); PLATELET 297 x1000/uL (130-400); RED BLOOD CELL COUNT 3.05 mill/uL (4.2-5.4)
[2019-03-14] MEDS: METOPROLOL TARTRATE 5MG/5ML VIAL IV SCH ×4 (07:29→23:25)
[2019-03-14] MEDS: PANTOPRAZOLE SODIUM 40 MG/VIAL IV SCH (09:01)
[2019-03-14] MEDS: METOPROLOL TARTRATE 25MG TABLET PO SCH ×2 (13:30→20:54)
[2019-03-14] MEDS: MICAFUNGIN 100 MG in SODIUM CHLORIDE 0.9% 100 ML IV SCH (15:17)
[2019-03-14] MEDS: AMLODIPINE 5MG TABLET PO SCH ×2 (15:18→20:54)
[2019-03-14] MEDS: IPRATROPIUM/ALBUTEROL 0.5-3(2.5)MG/3ML NEB HHN PRN (20:14)
[2019-03-15] VITALS (13 sets, daily range): BP systolic 145–159; BP diastolic 58–81
[2019-03-15] MEDS: ALBUTEROL (0.083%) 2.5MG/3ML NEB HHN SCH ×4 (02:31→20:08)
[2019-03-15] MEDS: BLOOD SUGAR DIAGNOSTIC STRIP TEST SCH ×3 (05:23→17:16)
[2019-03-15] MEDS: METOPROLOL TARTRATE 5MG/5ML VIAL IV SCH ×3 (05:25→18:04)
[2019-03-15] MEDS: INSULIN LISPRO 100 UNITS/ML SUBCUT SCH ×3 (05:52→17:16)
[2019-03-15 06:22] LABS: BASOPHILS % 0.7 % (0.0-2.0); EOSINOPHILS % 1.2 % (0.0-5.0); HEMOGLOBIN. 7.1 g/dL (12.0-16.0); LYMPHOCYTES % 7.6 % (20.0-50.0); MEAN CORPUSCULAR HEMOGLOBIN 26.1 pg (28.0-32.0); MEAN CORPUSCULAR VOLUME 77.1 fL (81.0-99.0); MEAN PLATELET VOLUME 10.6 fl (7.4-10.4); MONOCYTES % 11.9 % (2.0-8.0); NEUTROPHILS % 78.6 % (40.0-76.0); PLATELET 296 x1000/uL (130-400); RED BLOOD CELL COUNT 2.72 mill/uL (4.2-5.4); RED CELL DISTRIBUTION WIDTH 18.2 % (11.6-14.6)
[2019-03-15] MEDS: METOPROLOL TARTRATE 25MG TABLET PO SCH ×2 (10:04→21:23)
[2019-03-15] MEDS: AMLODIPINE 5MG TABLET PO SCH ×2 (10:04→21:22)
[2019-03-15] MEDS: PANTOPRAZOLE SODIUM 40 MG/VIAL IV SCH (15:50)
[2019-03-15] MEDS: MICAFUNGIN 100 MG in SODIUM CHLORIDE 0.9% 100 ML IV SCH (15:51)
[2019-03-15] MEDS: EPOETIN ALFA 10000UNITS/ML VIAL SUBCUT SCH (21:22)
[2019-03-16] VITALS (13 sets, daily range): BP systolic 133–176; BP diastolic 51–113
[2019-03-16] MEDS: BLOOD SUGAR DIAGNOSTIC STRIP TEST SCH ×4 (00:32→17:44)
[2019-03-16] MEDS: INSULIN LISPRO 100 UNITS/ML SUBCUT SCH ×4 (00:32→17:44)
[2019-03-16] MEDS: METOPROLOL TARTRATE 5MG/5ML VIAL IV SCH ×2 (00:34→06:00)
[2019-03-16 00:42] LABS: HEMATOCRIT 25.1 % (36.0-48.0); HEMOGLOBIN 8.4 g/dL (12.0-16.0)
[2019-03-16] MEDS: ALBUTEROL (0.083%) 2.5MG/3ML NEB HHN SCH ×4 (01:48→20:32)
[2019-03-16 07:49] LABS: HEMATOCRIT. 25.2 % (36.0-48.0); HEMOGLOBIN. 8.4 g/dL (12.0-16.0); MEAN CORPUSCULAR HEMOGLOBIN 26.8 pg (28.0-32.0); MEAN CORPUSCULAR VOLUME 80.5 fL (81.0-99.0); MEAN PLATELET VOLUME 10.4 fl (7.4-10.4); PLATELET 333 x1000/uL (130-400); RED BLOOD CELL COUNT 3.13 mill/uL (4.2-5.4); RED CELL DISTRIBUTION WIDTH 18.6 % (11.6-14.6)
[2019-03-16 09:34] LABS: PLATELET ESTIMATE NORMAL
[2019-03-16] MEDS: METOPROLOL TARTRATE 25MG TABLET PO SCH (09:42)
[2019-03-16] MEDS: PANTOPRAZOLE SODIUM 40 MG/VIAL IV SCH (09:42)
[2019-03-16] MEDS: AMLODIPINE 5MG TABLET PO SCH ×2 (09:42→21:00)
[2019-03-16] MEDS ORDERED: METOPROLOL TARTRATE 5MG/5ML VIAL IV SCH (12:00)
[2019-03-16] MEDS: MICAFUNGIN 100 MG in SODIUM CHLORIDE 0.9% 100 ML IV SCH (15:48)
[2019-03-16] MEDS: METOPROLOL TARTRATE 50MG TABLET PO SCH (21:00)
[2019-03-16] MEDS ORDERED: METOPROLOL TARTRATE 25MG TABLET PO SCH (21:00)
[2019-03-17] VITALS (12 sets, daily range): BP systolic 129–172; BP diastolic 60–96
[2019-03-17] MEDS: BLOOD SUGAR DIAGNOSTIC STRIP TEST SCH ×4 (00:03→18:28)
[2019-03-17] MEDS: INSULIN LISPRO 100 UNITS/ML SUBCUT SCH ×4 (00:04→18:00)
[2019-03-17] MEDS: ALBUTEROL (0.083%) 2.5MG/3ML NEB HHN SCH ×4 (02:49→21:07)
[2019-03-17 08:16] LABS: HEMATOCRIT. 26.4 % (36.0-48.0); HEMOGLOBIN. 8.8 g/dL (12.0-16.0); MEAN CORPUSCULAR HEMOGLOBIN 26.6 pg (28.0-32.0); MEAN CORPUSCULAR VOLUME 79.9 fL (81.0-99.0); MEAN PLATELET VOLUME 9.7 fl (7.4-10.4); PLATELET 293 x1000/uL (130-400); RED CELL DISTRIBUTION WIDTH 19.1 % (11.6-14.6)
[2019-03-17] MEDS: AMLODIPINE 5MG TABLET PO SCH ×2 (09:09→21:29)
[2019-03-17] MEDS: PANTOPRAZOLE SODIUM 40 MG/VIAL IV SCH (09:09)
[2019-03-17] MEDS: METOPROLOL TARTRATE 50MG TABLET PO SCH ×2 (09:09→21:30)
[2019-03-17 12:05] LABS: ATYPICAL LYMPHOCYTES 1; PLATELET ESTIMATE NORMAL
[2019-03-17] MEDS: MICAFUNGIN 100 MG in SODIUM CHLORIDE 0.9% 100 ML IV SCH (15:16)
[2019-03-17] MEDS: EPOETIN ALFA 10000UNITS/ML VIAL SUBCUT SCH (21:30)
[2019-03-18] VITALS (12 sets, daily range): BP systolic 137–157; BP diastolic 62–83
[2019-03-18] MEDS: BLOOD SUGAR DIAGNOSTIC STRIP TEST SCH ×4 (00:17→18:32)
[2019-03-18] MEDS: ALBUTEROL (0.083%) 2.5MG/3ML NEB HHN SCH ×4 (01:44→20:05)
[2019-03-18] MEDS: INSULIN LISPRO 100 UNITS/ML SUBCUT SCH ×4 (05:14→18:32)
[2019-03-18] MEDS: PANTOPRAZOLE SODIUM 40 MG/VIAL IV SCH (10:03)
[2019-03-18] MEDS: AMLODIPINE 5MG TABLET PO SCH ×2 (10:03→21:17)
[2019-03-18] MEDS: METOPROLOL TARTRATE 50MG TABLET PO SCH ×2 (10:03→21:17)
[2019-03-18] MEDS: MICAFUNGIN 100 MG in SODIUM CHLORIDE 0.9% 100 ML IV SCH (15:55)
[2019-03-19] VITALS (12 sets, daily range): BP systolic 114–174; BP diastolic 49–93
[2019-03-19] MEDS: BLOOD SUGAR DIAGNOSTIC STRIP TEST SCH ×4 (00:47→17:26)
[2019-03-19] MEDS: INSULIN LISPRO 100 UNITS/ML SUBCUT SCH ×4 (00:48→17:26)
[2019-03-19] MEDS: ALBUTEROL (0.083%) 2.5MG/3ML NEB HHN SCH ×3 (08:14→20:40)
[2019-03-19 08:18] LABS: HEMATOCRIT. 24.3 % (36.0-48.0); MEAN CORPUSCULAR HEMOGLOBIN 26.5 pg (28.0-32.0); MEAN CORPUSCULAR VOLUME 80.4 fL (81.0-99.0); MEAN PLATELET VOLUME 9.9 fl (7.4-10.4); PLATELET 353 x1000/uL (130-400); RED BLOOD CELL COUNT 3.02 mill/uL (4.2-5.4)
[2019-03-19] MEDS: AMLODIPINE 5MG TABLET PO SCH ×3 (09:00→22:10)
[2019-03-19] MEDS: METOPROLOL TARTRATE 50MG TABLET PO SCH ×3 (09:00→22:10)
[2019-03-19] MEDS: PANTOPRAZOLE SODIUM 40 MG/VIAL IV SCH (09:50)
[2019-03-19] MEDS: ACETAMINOPHEN 650MG/20.3ML UDC PO PRN (12:17)
[2019-03-19 13:14] LABS: PLATELET ESTIMATE NORMAL
[2019-03-19] MEDS: MICAFUNGIN 100 MG in SODIUM CHLORIDE 0.9% 100 ML IV SCH (22:12)
[2019-03-20] VITALS (10 sets, daily range): BP systolic 131–169; BP diastolic 58–100
[2019-03-20] MEDS: BLOOD SUGAR DIAGNOSTIC STRIP TEST SCH ×5 (00:57→23:19)
[2019-03-20] MEDS: ALBUTEROL (0.083%) 2.5MG/3ML NEB HHN SCH ×4 (01:22→21:17)
[2019-03-20] MEDS: INSULIN LISPRO 100 UNITS/ML SUBCUT SCH ×5 (05:22→23:26)
[2019-03-20 06:46] LABS: HEMATOCRIT. 24.6 % (36.0-48.0); HEMOGLOBIN. 8.1 g/dL (12.0-16.0); MEAN CORPUSCULAR HEMOGLOBIN 26.7 pg (28.0-32.0); MEAN CORPUSCULAR VOLUME 80.9 fL (81.0-99.0); MEAN PLATELET VOLUME 9.8 fl (7.4-10.4); PLATELET 348 x1000/uL (130-400); RED BLOOD CELL COUNT 3.03 mill/uL (4.2-5.4); RED CELL DISTRIBUTION WIDTH 21.1 % (11.6-14.6)
[2019-03-20] MEDS: PANTOPRAZOLE SODIUM 40 MG/VIAL IV SCH (10:12)
[2019-03-20] MEDS: METOPROLOL TARTRATE 50MG TABLET PO SCH ×2 (10:18→21:58)
[2019-03-20] MEDS: AMLODIPINE 5MG TABLET PO SCH ×2 (10:18→21:57)
[2019-03-20] MEDS ORDERED: MAGNESIUM HYDROXIDE 400MG/5ML 30ML UDC PO PRN (10:45)
[2019-03-20] MEDS: ACETAMINOPHEN 650MG/20.3ML UDC PO PRN ×2 (12:36→21:59)
[2019-03-20] MEDS: HYDRALAZINE 20MG/ML VIAL IV PRN ×2 (17:01→22:11)
[2019-03-20 21:41] LABS: PLATELET ESTIMATE NORMAL
[2019-03-20] MEDS: EPOETIN ALFA 10000UNITS/ML VIAL SUBCUT SCH (21:57)
[2019-03-20] MEDS: MICAFUNGIN 100 MG in SODIUM CHLORIDE 0.9% 100 ML IV SCH (21:57)
[2019-03-21] VITALS (12 sets, daily range): BP systolic 121–167; BP diastolic 54–80
[2019-03-21] MEDS: ALBUTEROL (0.083%) 2.5MG/3ML NEB HHN SCH ×5 (00:44→20:20)
[2019-03-21 10:05] LABS: HEMOGLOBIN. 8.8 g/dL (12.0-16.0); MEAN CORPUSCULAR HEMOGLOBIN 26.1 pg (28.0-32.0); MEAN CORPUSCULAR VOLUME 80.3 fL (81.0-99.0); MEAN PLATELET VOLUME 8.9 fl (7.4-10.4); PLATELET 362 x1000/uL (130-400); RED BLOOD CELL COUNT 3.36 mill/uL (4.2-5.4); RED CELL DISTRIBUTION WIDTH 20.7 % (11.6-14.6)
[2019-03-21] MEDS: METOPROLOL TARTRATE 50MG TABLET PO SCH ×2 (11:27→21:28)
[2019-03-21] MEDS: AMLODIPINE 5MG TABLET PO SCH ×2 (11:27→21:28)
[2019-03-21] MEDS: PANTOPRAZOLE SODIUM 40 MG/VIAL IV SCH (11:27)
[2019-03-21] MEDS: BLOOD SUGAR DIAGNOSTIC STRIP TEST SCH ×2 (12:16→18:54)
[2019-03-21] MEDS: INSULIN LISPRO 100 UNITS/ML SUBCUT SCH ×2 (12:40→19:00)
[2019-03-21] MEDS ORDERED: MORPHINE SULFATE 2 MG/ML CPJ (NOT FOR IM USE) IV PRN (13:45)
[2019-03-22] VITALS (12 sets, daily range): BP systolic 139–158; BP diastolic 60–116
[2019-03-22] MEDS: BLOOD SUGAR DIAGNOSTIC STRIP TEST SCH ×4 (00:33→18:00)
[2019-03-22] MEDS: INSULIN LISPRO 100 UNITS/ML SUBCUT SCH ×4 (00:39→18:00)
[2019-03-22] MEDS: ALBUTEROL (0.083%) 2.5MG/3ML NEB HHN SCH ×4 (02:07→20:51)
[2019-03-22 06:52] LABS: PLATELET ESTIMATE NORMAL
[2019-03-22] MEDS: METOPROLOL TARTRATE 50MG TABLET PO SCH ×2 (08:47→20:27)
[2019-03-22] MEDS: AMLODIPINE 5MG TABLET PO SCH ×2 (08:47→20:27)
[2019-03-22] MEDS: PANTOPRAZOLE SODIUM 40 MG/VIAL IV SCH (08:48)
[2019-03-22 12:45] LABS: HEMATOCRIT. 23.2 % (36.0-48.0); HEMOGLOBIN. 7.6 g/dL (12.0-16.0); MEAN CORPUSCULAR HEMOGLOBIN 26.7 pg (28.0-32.0); MEAN CORPUSCULAR VOLUME 81.2 fL (81.0-99.0); MEAN PLATELET VOLUME 9.7 fl (7.4-10.4); PLATELET 366 x1000/uL (130-400); RED BLOOD CELL COUNT 2.86 mill/uL (4.2-5.4); RED CELL DISTRIBUTION WIDTH 21.5 % (11.6-14.6)
[2019-03-22 13:20] LABS: PLATELET ESTIMATE NORMAL
[2019-03-22] MEDS ORDERED: POTASSIUM CHLORIDE 20MEQ/PACKET PO NR (19:45)
[2019-03-22] MEDS: EPOETIN ALFA 10000UNITS/ML VIAL SUBCUT SCH (22:11)
[2019-03-23] VITALS (12 sets, daily range): BP systolic 126–173; BP diastolic 59–94
[2019-03-23] MEDS: ALBUTEROL (0.083%) 2.5MG/3ML NEB HHN SCH ×5 (00:44→20:22)
[2019-03-23] MEDS: INSULIN LISPRO 100 UNITS/ML SUBCUT SCH ×5 (01:32→23:52)
[2019-03-23] MEDS: BLOOD SUGAR DIAGNOSTIC STRIP TEST SCH ×5 (05:58→23:07)
[2019-03-23] MEDS: AMLODIPINE 5MG TABLET PO SCH ×2 (08:44→21:08)
[2019-03-23] MEDS: METOPROLOL TARTRATE 50MG TABLET PO SCH ×2 (08:44→21:07)
[2019-03-23 11:26] LABS: HEMATOCRIT. 24.6 % (36.0-48.0); HEMOGLOBIN. 8.1 g/dL (12.0-16.0); MEAN CORPUSCULAR HEMOGLOBIN 26.5 pg (28.0-32.0); MEAN CORPUSCULAR VOLUME 80.7 fL (81.0-99.0); MEAN PLATELET VOLUME 9.5 fl (7.4-10.4); PLATELET 421 x1000/uL (130-400); RED BLOOD CELL COUNT 3.05 mill/uL (4.2-5.4); RED CELL DISTRIBUTION WIDTH 21.1 % (11.6-14.6)
[2019-03-23 11:54] LABS: PLATELET ESTIMATE INCREASED
[2019-03-23 12:21] LABS: INR 1.2; PARTIAL THROMBOPLASTIN TIME 27.6 sec (23.4-31.0)
[2019-03-23] MEDS: HYDRALAZINE HCL 50MG TABLET PO SCH (21:08)
[2019-03-24] VITALS (12 sets, daily range): BP systolic 127–206; BP diastolic 56–93
[2019-03-24] MEDS: ALBUTEROL (0.083%) 2.5MG/3ML NEB HHN SCH ×4 (01:45→20:47)
[2019-03-24] MEDS: BLOOD SUGAR DIAGNOSTIC STRIP TEST SCH ×3 (06:00→17:29)
[2019-03-24] MEDS: INSULIN LISPRO 100 UNITS/ML SUBCUT SCH ×3 (06:00→17:44)
[2019-03-24 08:16] LABS: HEMATOCRIT. 23.3 % (36.0-48.0); HEMOGLOBIN. 7.6 g/dL (12.0-16.0); MEAN CORPUSCULAR HEMOGLOBIN 26.4 pg (28.0-32.0); MEAN CORPUSCULAR VOLUME 81.1 fL (81.0-99.0); MEAN PLATELET VOLUME 9.5 fl (7.4-10.4); PLATELET 394 x1000/uL (130-400); RED BLOOD CELL COUNT 2.88 mill/uL (4.2-5.4)
[2019-03-24] MEDS: HYDRALAZINE HCL 50MG TABLET PO SCH ×2 (10:26→21:20)
[2019-03-24] MEDS: AMLODIPINE 5MG TABLET PO SCH ×2 (10:26→21:20)
[2019-03-24] MEDS: METOPROLOL TARTRATE 50MG TABLET PO SCH ×2 (10:26→21:20)
[2019-03-24 14:50] LABS: ATYPICAL LYMPHOCYTES 1; PLATELET ESTIMATE NORMAL
[2019-03-24] MEDS: ACETAMINOPHEN 650MG/20.3ML UDC PO PRN (21:21)
[2019-03-24] MEDS: EPOETIN ALFA 10000UNITS/ML VIAL SUBCUT SCH (21:21)
[2019-03-25] VITALS (12 sets, daily range): BP systolic 126–157; BP diastolic 61–85
[2019-03-25] MEDS: BLOOD SUGAR DIAGNOSTIC STRIP TEST SCH ×4 (00:51→18:32)
[2019-03-25] MEDS: INSULIN LISPRO 100 UNITS/ML SUBCUT SCH ×4 (00:53→18:00)
[2019-03-25] MEDS: ALBUTEROL (0.083%) 2.5MG/3ML NEB HHN SCH ×4 (01:40→21:35)
[2019-03-25 06:54] LABS: HEMATOCRIT. 25.4 % (36.0-48.0); HEMOGLOBIN. 8.3 g/dL (12.0-16.0); MEAN CORPUSCULAR HEMOGLOBIN 26.4 pg (28.0-32.0); MEAN CORPUSCULAR VOLUME 81.1 fL (81.0-99.0); MEAN PLATELET VOLUME 9.3 fl (7.4-10.4); PLATELET 418 x1000/uL (130-400); RED BLOOD CELL COUNT 3.14 mill/uL (4.2-5.4); RED CELL DISTRIBUTION WIDTH 22.2 % (11.6-14.6)
[2019-03-25] MEDS: AMLODIPINE 5MG TABLET PO SCH ×2 (09:22→21:55)
[2019-03-25] MEDS: HYDRALAZINE HCL 50MG TABLET PO SCH ×2 (09:22→21:56)
[2019-03-25] MEDS: METOPROLOL TARTRATE 50MG TABLET PO SCH ×2 (09:22→21:56)
[2019-03-25 11:37] LABS: PLATELET ESTIMATE INCREASED
[2019-03-26] VITALS (18 sets, daily range): BP systolic 124–176; BP diastolic 66–99
[2019-03-26] MEDS: ALBUTEROL (0.083%) 2.5MG/3ML NEB HHN SCH ×4 (03:00→21:22)
[2019-03-26] MEDS: INSULIN LISPRO 100 UNITS/ML SUBCUT SCH ×4 (06:00→18:00)
[2019-03-26] MEDS: BLOOD SUGAR DIAGNOSTIC STRIP TEST SCH ×3 (06:40→12:00)
[2019-03-26 07:11] LABS: BASOPHILS % 0.5 % (0.0-2.0); EOSINOPHILS % 1.1 % (0.0-5.0); HEMATOCRIT. 26.8 % (36.0-48.0); HEMOGLOBIN. 8.6 g/dL (12.0-16.0); MEAN CORPUSCULAR HEMOGLOBIN 26.2 pg (28.0-32.0); MEAN CORPUSCULAR VOLUME 81.1 fL (81.0-99.0); MEAN PLATELET VOLUME 9.1 fl (7.4-10.4); MONOCYTES % 10.2 % (2.0-8.0); NEUTROPHILS % 79.2 % (40.0-76.0); PLATELET 437 x1000/uL (130-400); RED CELL DISTRIBUTION WIDTH 21.8 % (11.6-14.6)
[2019-03-26 07:23] LABS: PHOSPHORUS 4.2 mg/dL (2.5-4.9)
[2019-03-26] MEDS ORDERED: SODIUM BICARBONATE 4% (2.4MEQ) 5ML VIAL IV ONE (08:07)
[2019-03-26] MEDS ORDERED: LIDOCAINE HCL 1% 20ML VIAL (Pyxis) INJ ONE (08:07)
[2019-03-26] MEDS ORDERED: CEFAZOLIN 1000MG PREMIX 50 ML IV ONE (08:14)
[2019-03-26] MEDS ORDERED: CEFAZOLIN 1000MG PREMIX 50 ML IV SCH (08:15)
[2019-03-26] MEDS: AMLODIPINE 5MG TABLET PO SCH ×3 (08:52→22:07)
[2019-03-26] MEDS: METOPROLOL TARTRATE 50MG TABLET PO SCH ×3 (08:52→22:06)
[2019-03-26] MEDS: HYDRALAZINE HCL 50MG TABLET PO SCH ×3 (08:52→22:07)
[2019-03-27] VITALS (12 sets, daily range): BP systolic 130–158; BP diastolic 60–81
[2019-03-27] MEDS: BLOOD SUGAR DIAGNOSTIC STRIP TEST SCH ×4 (00:52→17:26)
[2019-03-27] MEDS: INSULIN LISPRO 100 UNITS/ML SUBCUT SCH ×4 (00:53→17:36)
[2019-03-27] MEDS: ALBUTEROL (0.083%) 2.5MG/3ML NEB HHN SCH ×4 (02:21→20:10)
[2019-03-27 07:11] LABS: HEMOGLOBIN. 7.8 g/dL (12.0-16.0); MEAN CORPUSCULAR HEMOGLOBIN 26.3 pg (28.0-32.0); MEAN CORPUSCULAR VOLUME 80.7 fL (81.0-99.0); MEAN PLATELET VOLUME 8.9 fl (7.4-10.4); PLATELET 389 x1000/uL (130-400); RED BLOOD CELL COUNT 2.97 mill/uL (4.2-5.4); RED CELL DISTRIBUTION WIDTH 21.8 % (11.6-14.6)
[2019-03-27] MEDS: HYDRALAZINE HCL 50MG TABLET PO SCH ×2 (08:25→21:24)
[2019-03-27] MEDS: AMLODIPINE 5MG TABLET PO SCH ×2 (08:25→21:24)
[2019-03-27] MEDS: METOPROLOL TARTRATE 50MG TABLET PO SCH ×2 (08:25→21:24)
[2019-03-27 08:31] LABS: BG CARBOXYHEMOGLOBIN 0.5 % (0.5-1.5); BG DEOXYHEMOGLOBIN 2.3 % (0.0-5.0); BG FRACTION INSPIRED OXYGEN 40; BG HCO3 ACT 24.9 mmol/L (22.0-26.0); BG METHEMOGLOBIN 0.3 % (0.0-1.5); BG OXYGEN SATURATION 97.7 % (92.0-98.5); BG OXYHEMOGLOBIN 96.9 % (94.0-97.0); BG PCO2 31.9 mmHg (35.0-45.0); BG PO2 95.6 mmHg (75.0-100.0); BG SAMPLE SITE RIGHT BRACHIAL; BG TIDAL VOLUME(mL) 500 mL; BG TOTAL HEMOGLOBIN 8.6 g/dL (12.0-18.0); BG VENT MODE VENT - A/C; BG VENT RATE 14 set
[2019-03-27 13:32] LABS: PLATELET ESTIMATE NORMAL
[2019-03-27] MEDS: EPOETIN ALFA 10000UNITS/ML VIAL SUBCUT SCH (21:24)
[2019-03-28] VITALS (12 sets, daily range): BP systolic 135–159; BP diastolic 63–83
[2019-03-28] MEDS: ALBUTEROL (0.083%) 2.5MG/3ML NEB HHN SCH ×3 (03:00→13:29)
[2019-03-28] MEDS: INSULIN LISPRO 100 UNITS/ML SUBCUT SCH ×4 (06:00→17:24)
[2019-03-28 06:51] LABS: BASOPHILS % 0.6 % (0.0-2.0); EOSINOPHILS % 0.8 % (0.0-5.0); HEMATOCRIT. 23.6 % (36.0-48.0); HEMOGLOBIN. 7.6 g/dL (12.0-16.0); LYMPHOCYTES % 7.8 % (20.0-50.0); MEAN CORPUSCULAR HEMOGLOBIN 26.5 pg (28.0-32.0); MEAN CORPUSCULAR VOLUME 82.4 fL (81.0-99.0); MONOCYTES % 11.2 % (2.0-8.0); NEUTROPHILS % 79.6 % (40.0-76.0); PLATELET 369 x1000/uL (130-400); RED BLOOD CELL COUNT 2.86 mill/uL (4.2-5.4); RED CELL DISTRIBUTION WIDTH 21.6 % (11.6-14.6)
[2019-03-28] MEDS: BLOOD SUGAR DIAGNOSTIC STRIP TEST SCH ×4 (06:54→17:24)
[2019-03-28] MEDS: HYDRALAZINE HCL 50MG TABLET PO SCH ×2 (08:37→21:06)
[2019-03-28] MEDS: METOPROLOL TARTRATE 50MG TABLET PO SCH ×2 (08:37→21:07)
[2019-03-28] MEDS: AMLODIPINE 5MG TABLET PO SCH ×2 (08:38→21:07)
[2019-03-29] VITALS (12 sets, daily range): BP systolic 133–159; BP diastolic 62–89
[2019-03-29] MEDS: ALBUTEROL (0.083%) 2.5MG/3ML NEB HHN SCH ×4 (02:27→20:50)
[2019-03-29 06:39] LABS: BASOPHILS % 0.9 % (0.0-2.0); EOSINOPHILS % 1.3 % (0.0-5.0); HEMATOCRIT. 25.2 % (36.0-48.0); HEMOGLOBIN. 8.2 g/dL (12.0-16.0); LYMPHOCYTES % 10.5 % (20.0-50.0); MEAN CORPUSCULAR HEMOGLOBIN 26.6 pg (28.0-32.0); MEAN CORPUSCULAR VOLUME 81.4 fL (81.0-99.0); MEAN PLATELET VOLUME 8.8 fl (7.4-10.4); MONOCYTES % 11.6 % (2.0-8.0); NEUTROPHILS % 75.7 % (40.0-76.0); PLATELET 357 x1000/uL (130-400); RED CELL DISTRIBUTION WIDTH 21.4 % (11.6-14.6)
[2019-03-29] MEDS: HYDRALAZINE HCL 50MG TABLET PO SCH ×2 (08:56→20:38)
[2019-03-29] MEDS: AMLODIPINE 5MG TABLET PO SCH ×2 (08:57→20:39)
[2019-03-29] MEDS: METOPROLOL TARTRATE 50MG TABLET PO SCH ×2 (08:58→20:39)
[2019-03-29] MEDS: INSULIN LISPRO 100 UNITS/ML SUBCUT SCH ×2 (12:00→17:41)
[2019-03-29] MEDS: BLOOD SUGAR DIAGNOSTIC STRIP TEST SCH ×2 (12:00→17:41)
[2019-03-29] MEDS ORDERED: RACEPINEPHRINE 2.25% 0.5ML NEB VIAL HHN PRN (19:30)
[2019-03-30] VITALS (12 sets, daily range): BP systolic 128–168; BP diastolic 61–91
[2019-03-30] MEDS: BLOOD SUGAR DIAGNOSTIC STRIP TEST SCH ×5 (00:50→23:26)
[2019-03-30] MEDS: ACETYLCYSTEINE 100MG/ML 10% VIAL 4ML INH SCH ×3 (02:15→14:07)
[2019-03-30] MEDS: ALBUTEROL (0.083%) 2.5MG/3ML NEB HHN SCH ×4 (02:15→21:10)
[2019-03-30] MEDS: INSULIN LISPRO 100 UNITS/ML SUBCUT SCH ×5 (05:06→23:26)
[2019-03-30 07:32] LABS: BASOPHILS % 0.6 % (0.0-2.0); EOSINOPHILS % 1.3 % (0.0-5.0); HEMATOCRIT. 27.4 % (36.0-48.0); HEMOGLOBIN. 8.6 g/dL (12.0-16.0); LYMPHOCYTES % 11.6 % (20.0-50.0); MEAN CORPUSCULAR HEMOGLOBIN 25.7 pg (28.0-32.0); MEAN CORPUSCULAR VOLUME 81.3 fL (81.0-99.0); MEAN PLATELET VOLUME 8.8 fl (7.4-10.4); MONOCYTES % 10.6 % (2.0-8.0); NEUTROPHILS % 75.9 % (40.0-76.0); PLATELET 370 x1000/uL (130-400); RED BLOOD CELL COUNT 3.37 mill/uL (4.2-5.4); RED CELL DISTRIBUTION WIDTH 21.2 % (11.6-14.6)
[2019-03-30] MEDS: HYDRALAZINE HCL 50MG TABLET PO SCH ×2 (09:00→20:37)
[2019-03-30] MEDS: AMLODIPINE 5MG TABLET PO SCH ×2 (09:00→20:38)
[2019-03-30] MEDS: METOPROLOL TARTRATE 50MG TABLET PO SCH ×2 (09:00→20:37)
[2019-03-30] MEDS: HYDRALAZINE 20MG/ML VIAL IV PRN (19:17)
[2019-03-31] VITALS (35 sets, daily range): BP systolic 128–165; BP diastolic 54–95
[2019-03-31] MEDS: ACETYLCYSTEINE 100MG/ML 10% VIAL 4ML INH SCH ×3 (02:19→14:26)
[2019-03-31] MEDS: ALBUTEROL (0.083%) 2.5MG/3ML NEB HHN SCH ×4 (02:20→19:51)
[2019-03-31] MEDS: BLOOD SUGAR DIAGNOSTIC STRIP TEST SCH ×4 (05:34→23:01)
[2019-03-31] MEDS: INSULIN LISPRO 100 UNITS/ML SUBCUT SCH ×4 (05:36→23:03)
[2019-03-31] MEDS: METOPROLOL TARTRATE 50MG TABLET PO SCH ×2 (08:41→20:58)
[2019-03-31] MEDS: AMLODIPINE 5MG TABLET PO SCH ×2 (08:41→20:57)
[2019-03-31] MEDS: HYDRALAZINE HCL 50MG TABLET PO SCH ×2 (08:42→20:57)
[2019-03-31 09:08] LABS: BASOPHILS % 0.4 % (0.0-2.0); EOSINOPHILS % 1.2 % (0.0-5.0); HEMATOCRIT. 25.8 % (36.0-48.0); HEMOGLOBIN. 8.2 g/dL (12.0-16.0); LYMPHOCYTES % 10.8 % (20.0-50.0); MEAN CORPUSCULAR HEMOGLOBIN 25.8 pg (28.0-32.0); MEAN CORPUSCULAR VOLUME 80.8 fL (81.0-99.0); MEAN PLATELET VOLUME 8.7 fl (7.4-10.4); MONOCYTES % 10.5 % (2.0-8.0); NEUTROPHILS % 77.1 % (40.0-76.0); PLATELET 357 x1000/uL (130-400); RED BLOOD CELL COUNT 3.19 mill/uL (4.2-5.4); RED CELL DISTRIBUTION WIDTH 21.3 % (11.6-14.6)
[2019-03-31 18:00] LABS: TOTAL IRON BINDING CAPACITY 237 ug/dL (250-450)
[2019-04-01] VITALS (13 sets, daily range): BP systolic 130–187; BP diastolic 64–96
[2019-04-01] MEDS: ACETYLCYSTEINE 100MG/ML 10% VIAL 4ML INH SCH ×3 (00:22→14:26)
[2019-04-01] MEDS: ALBUTEROL (0.083%) 2.5MG/3ML NEB HHN SCH ×4 (00:22→20:55)
[2019-04-01] MEDS: BLOOD SUGAR DIAGNOSTIC STRIP TEST SCH ×3 (05:53→18:00)
[2019-04-01] MEDS: INSULIN LISPRO 100 UNITS/ML SUBCUT SCH ×3 (05:53→17:47)
[2019-04-01] MEDS: METOPROLOL TARTRATE 50MG TABLET PO SCH ×2 (08:09→20:37)
[2019-04-01] MEDS: AMLODIPINE 5MG TABLET PO SCH ×2 (08:09→20:37)
[2019-04-01] MEDS: HYDRALAZINE HCL 50MG TABLET PO SCH ×2 (08:09→20:38)
[2019-04-01 08:36] LABS: BASOPHILS % 0.5 % (0.0-2.0); HEMATOCRIT. 24.9 % (36.0-48.0); HEMOGLOBIN. 7.9 g/dL (12.0-16.0); LYMPHOCYTES % 10.5 % (20.0-50.0); MEAN PLATELET VOLUME 8.6 fl (7.4-10.4); MONOCYTES % 9.3 % (2.0-8.0); NEUTROPHILS % 77.7 % (40.0-76.0); PLATELET 302 x1000/uL (130-400); RED BLOOD CELL COUNT 3.03 mill/uL (4.2-5.4); RED CELL DISTRIBUTION WIDTH 21.3 % (11.6-14.6)
[2019-04-01] MEDS: HYDRALAZINE 20MG/ML VIAL IV PRN (18:52)
[2019-04-02] VITALS (12 sets, daily range): BP systolic 140–177; BP diastolic 66–99
[2019-04-02] MEDS: INSULIN LISPRO 100 UNITS/ML SUBCUT SCH ×4 (00:54→17:29)
[2019-04-02] MEDS: ACETYLCYSTEINE 100MG/ML 10% VIAL 4ML INH SCH ×3 (01:12→15:01)
[2019-04-02] MEDS: ALBUTEROL (0.083%) 2.5MG/3ML NEB HHN SCH ×4 (01:13→20:36)
[2019-04-02] MEDS: HYDRALAZINE 20MG/ML VIAL IV PRN (02:28)
[2019-04-02] MEDS: BLOOD SUGAR DIAGNOSTIC STRIP TEST SCH ×4 (06:17→17:29)
[2019-04-02] MEDS: AMLODIPINE 5MG TABLET PO SCH ×2 (13:27→23:17)
[2019-04-02] MEDS: HYDRALAZINE HCL 50MG TABLET PO SCH ×2 (13:27→23:18)
[2019-04-02] MEDS: METOPROLOL TARTRATE 50MG TABLET PO SCH ×2 (13:27→23:17)
[2019-04-02 15:24] LABS: HEPATITIS B SURFACE AB < 3.1 mIU/mL
[2019-04-02 15:34] LABS: HEPATITIS B SURFACE ANTIGEN NEGATIVE
[2019-04-02 16:04] LABS: HEPATITIS A AB IGM NEGATIVE (NEGATIVE)
[2019-04-02] MEDS: EPOETIN ALFA 10000UNITS/ML VIAL SUBCUT SCH (23:18)
[2019-04-03] VITALS (12 sets, daily range): BP systolic 126–160; BP diastolic 62–86
[2019-04-03] MEDS: ACETYLCYSTEINE 100MG/ML 10% VIAL 4ML INH SCH ×3 (01:04→15:57)
[2019-04-03] MEDS: ALBUTEROL (0.083%) 2.5MG/3ML NEB HHN SCH ×4 (01:04→20:52)
[2019-04-03] MEDS: INSULIN LISPRO 100 UNITS/ML SUBCUT SCH ×4 (06:00→18:00)
[2019-04-03 06:22] LABS: HEMATOCRIT. 23.8 % (36.0-48.0); HEMOGLOBIN. 7.6 g/dL (12.0-16.0); MEAN CORPUSCULAR HEMOGLOBIN 26.3 pg (28.0-32.0); MEAN CORPUSCULAR VOLUME 82.3 fL (81.0-99.0); MEAN PLATELET VOLUME 8.6 fl (7.4-10.4); PLATELET 255 x1000/uL (130-400); RED BLOOD CELL COUNT 2.89 mill/uL (4.2-5.4); RED CELL DISTRIBUTION WIDTH 20.7 % (11.6-14.6)
[2019-04-03] MEDS: BLOOD SUGAR DIAGNOSTIC STRIP TEST SCH ×4 (06:32→18:08)
[2019-04-03] MEDS: ACETAMINOPHEN 650MG/20.3ML UDC PO PRN (09:13)
[2019-04-03] MEDS: AMLODIPINE 5MG TABLET PO SCH ×2 (09:14→20:56)
[2019-04-03] MEDS: HYDRALAZINE HCL 50MG TABLET PO SCH ×2 (09:14→20:55)
[2019-04-03] MEDS: METOPROLOL TARTRATE 50MG TABLET PO SCH ×2 (09:14→20:55)
[2019-04-03 09:58] LABS: PLATELET ESTIMATE NORMAL
[2019-04-03] MEDS ORDERED: LORAZEPAM 2MG/ML CPJ IV PRN (13:15)
[2019-04-03] MEDS ORDERED: VANCOMYCIN 1250MG in DEXTROSE 5% WATER 250ML IV SCH (15:00)
[2019-04-03] MEDS: CEFEPIME 2,000 MG in DEXT 5% WATER 100 ML IV SCH (15:33)
[2019-04-04] VITALS (12 sets, daily range): BP systolic 131–170; BP diastolic 61–82
[2019-04-04] MEDS: ALBUTEROL (0.083%) 2.5MG/3ML NEB HHN SCH ×4 (01:59→20:09)
[2019-04-04] MEDS: BLOOD SUGAR DIAGNOSTIC STRIP TEST SCH ×5 (05:46→23:56)
[2019-04-04] MEDS: INSULIN LISPRO 100 UNITS/ML SUBCUT SCH ×5 (05:52→23:51)
[2019-04-04] MEDS: HYDRALAZINE 20MG/ML VIAL IV PRN ×2 (05:59→23:50)
[2019-04-04 07:26] LABS: BASOPHILS % 0.9 % (0.0-2.0); EOSINOPHILS % 2.1 % (0.0-5.0); HEMOGLOBIN. 7.7 g/dL (12.0-16.0); LYMPHOCYTES % 8.2 % (20.0-50.0); MEAN CORPUSCULAR HEMOGLOBIN 26.3 pg (28.0-32.0); MEAN CORPUSCULAR VOLUME 81.6 fL (81.0-99.0); MEAN PLATELET VOLUME 8.7 fl (7.4-10.4); MONOCYTES % 9.3 % (2.0-8.0); NEUTROPHILS % 79.5 % (40.0-76.0); PLATELET 254 x1000/uL (130-400); RED BLOOD CELL COUNT 2.94 mill/uL (4.2-5.4); RED CELL DISTRIBUTION WIDTH 20.3 % (11.6-14.6)
[2019-04-04] MEDS: HYDRALAZINE HCL 50MG TABLET PO SCH ×2 (09:00→21:21)
[2019-04-04] MEDS: AMLODIPINE 5MG TABLET PO SCH ×2 (09:00→21:24)
[2019-04-04] MEDS: METOPROLOL TARTRATE 50MG TABLET PO SCH ×2 (09:00→21:22)
[2019-04-04] MEDS: RISPERIDONE 0.5MG TABLET GT SCH (09:20)
[2019-04-04] MEDS: CEFEPIME 2,000 MG in DEXT 5% WATER 100 ML IV SCH (17:38)
[2019-04-04] MEDS: EPOETIN ALFA 10000UNITS/ML VIAL SUBCUT SCH (21:22)
[2019-04-05] VITALS (12 sets, daily range): BP systolic 122–168; BP diastolic 53–83
[2019-04-05] MEDS: ALBUTEROL (0.083%) 2.5MG/3ML NEB HHN SCH ×3 (02:13→13:41)
[2019-04-05] MEDS: INSULIN LISPRO 100 UNITS/ML SUBCUT SCH ×2 (06:24→13:36)
[2019-04-05] MEDS: BLOOD SUGAR DIAGNOSTIC STRIP TEST SCH ×3 (06:35→17:47)
[2019-04-05 07:21] LABS: HEMATOCRIT. 24.7 % (36.0-48.0); MEAN CORPUSCULAR HEMOGLOBIN 26.4 pg (28.0-32.0); MEAN CORPUSCULAR VOLUME 81.7 fL (81.0-99.0); MEAN PLATELET VOLUME 8.8 fl (7.4-10.4); PLATELET 248 x1000/uL (130-400); RED BLOOD CELL COUNT 3.03 mill/uL (4.2-5.4); RED CELL DISTRIBUTION WIDTH 20.1 % (11.6-14.6)
[2019-04-05] MEDS: HYDRALAZINE HCL 50MG TABLET PO SCH (09:34)
[2019-04-05] MEDS: METOPROLOL TARTRATE 50MG TABLET PO SCH (09:34)
[2019-04-05] MEDS: RISPERIDONE 0.5MG TABLET GT SCH (09:35)
[2019-04-05] MEDS: AMLODIPINE 5MG TABLET PO SCH (09:35)
[2019-04-05 10:18] LABS: PLATELET ESTIMATE NORMAL
[2019-04-05] MEDS ORDERED: VANCOMYCIN 500 MG PREMIX 100 ML IV SCH (13:00)
[2019-04-05] MEDS: CEFEPIME 2,000 MG in DEXT 5% WATER 100 ML IV SCH (15:29)
== END 2019-04-05 20:50 | DRG 3 ==
LOC: ER 10:58 → MICUNO 16:14 → EEVIPCON 16:14 → ENRESERV 16:43 → CVICU 03-01 11:37 → 5EST 03-12 10:00
PROVIDERS: ADMIT Internal Medicine; ATTEND Internal Medicine
PROC: 5A1955Z Respiratory Ventilation, Greater than 96 Consecutive Hours (ICD-10-PCS; 2019-02-21)
PROC: 0BH17EZ Insertion of Endotracheal Airway into Trachea, Via Natural or Artificial Opening (ICD-10-PCS; 2019-02-21)
PROC: 0GBJ0ZZ Excision of Thyroid Gland Isthmus, Open Approach (ICD-10-PCS; 2019-02-21)
PROC: 02HV33Z Insertion of Infusion Device into Superior Vena Cava, Percutaneous Approach (ICD-10-PCS; 2019-02-22)
PROC: B548ZZA Ultrasonography of Superior Vena Cava, Guidance (ICD-10-PCS; 2019-02-22)
PROC: 3E0336Z Introduction of Nutritional Substance into Peripheral Vein, Percutaneous Approach (ICD-10-PCS; 2019-02-23)
PROC: 0W9G3ZZ Drainage of Peritoneal Cavity, Percutaneous Approach (ICD-10-PCS; 2019-03-01)
PROC: 02H633Z Insertion of Infusion Device into Right Atrium, Percutaneous Approach (ICD-10-PCS; 2019-03-01)
PROC: B548ZZA Ultrasonography of Superior Vena Cava, Guidance (ICD-10-PCS; 2019-03-01)
PROC: 5A1D70Z Performance of Urinary Filtration, Intermittent, Less than 6 Hours Per Day (ICD-10-PCS; 2019-03-03)
PROC: 5A1D70Z Performance of Urinary Filtration, Intermittent, Less than 6 Hours Per Day (ICD-10-PCS; 2019-03-03)
PROC: 30233N1 Transfusion of Nonautologous Red Blood Cells into Peripheral Vein, Percutaneous Approach (ICD-10-PCS; 2019-03-05)
PROC: 5A1D70Z Performance of Urinary Filtration, Intermittent, Less than 6 Hours Per Day (ICD-10-PCS; 2019-03-06)
PROC: 5A1D70Z Performance of Urinary Filtration, Intermittent, Less than 6 Hours Per Day (ICD-10-PCS; 2019-03-07)
PROC: 0B110F4 Bypass Trachea to Cutaneous with Tracheostomy Device, Open Approach (ICD-10-PCS; principal; 2019-03-08)
PROC: 30233K1 Transfusion of Nonautologous Frozen Plasma into Peripheral Vein, Percutaneous Approach (ICD-10-PCS; 2019-03-08)
PROC: 5A1D70Z Performance of Urinary Filtration, Intermittent, Less than 6 Hours Per Day (ICD-10-PCS; 2019-03-09)
PROC: 5A1D70Z Performance of Urinary Filtration, Intermittent, Less than 6 Hours Per Day (ICD-10-PCS; 2019-03-11)
PROC: 5A1D70Z Performance of Urinary Filtration, Intermittent, Less than 6 Hours Per Day (ICD-10-PCS; 2019-03-14)
PROC: 5A1D70Z Performance of Urinary Filtration, Intermittent, Less than 6 Hours Per Day (ICD-10-PCS; 2019-03-15)
PROC: 5A1D70Z Performance of Urinary Filtration, Intermittent, Less than 6 Hours Per Day (ICD-10-PCS; 2019-03-18)
PROC: 5A1D70Z Performance of Urinary Filtration, Intermittent, Less than 6 Hours Per Day (ICD-10-PCS; 2019-03-20)
PROC: 5A1D70Z Performance of Urinary Filtration, Intermittent, Less than 6 Hours Per Day (ICD-10-PCS; 2019-03-22)
PROC: 5A1D70Z Performance of Urinary Filtration, Intermittent, Less than 6 Hours Per Day (ICD-10-PCS; 2019-03-25)
PROC: 0JH63XZ Insertion of Tunneled Vascular Access Device into Chest Subcutaneous Tissue and Fascia, Percutaneous Approach (ICD-10-PCS; 2019-03-26)
PROC: 02HV33Z Insertion of Infusion Device into Superior Vena Cava, Percutaneous Approach (ICD-10-PCS; 2019-03-26)
PROC: B5181ZA Fluoroscopy of Superior Vena Cava using Low Osmolar Contrast, Guidance (ICD-10-PCS; 2019-03-26)
PROC: 5A1D70Z Performance of Urinary Filtration, Intermittent, Less than 6 Hours Per Day (ICD-10-PCS; 2019-03-29)
PROC: 5A1D70Z Performance of Urinary Filtration, Intermittent, Less than 6 Hours Per Day (ICD-10-PCS; 2019-04-01)
PROC: 5A1D70Z Performance of Urinary Filtration, Intermittent, Less than 6 Hours Per Day (ICD-10-PCS; 2019-04-04)
PROC: 5A1D70Z Performance of Urinary Filtration, Intermittent, Less than 6 Hours Per Day (ICD-10-PCS; 2019-04-05)
DX: A41.9 Sepsis, unspecified organism (principal); J96.00 Acute respiratory failure, unspecified whether with hypoxia or hypercapnia; J18.9 Pneumonia, unspecified organism; N17.0 Acute kidney failure with tubular necrosis; E43 Unspecified severe protein-calorie malnutrition; N18.6 End stage renal disease; G92 Toxic encephalopathy; K29.71 Gastritis, unspecified, with bleeding; N39.0 Urinary tract infection, site not specified; B49 Unspecified mycosis; E87.2 Acidosis; I12.0 Hypertensive chronic kidney disease with stage 5 chronic kidney disease or end stage renal disease; I47.1 Supraventricular tachycardia; K56.7 Ileus, unspecified; R18.8 Other ascites; J91.8 Pleural effusion in other conditions classified elsewhere; K66.8 Other specified disorders of peritoneum; F03.90 Unspecified dementia, unspecified severity, without behavioral disturbance, psychotic disturbance, mood disturbance, and anxiety; E11.22 Type 2 diabetes mellitus with diabetic chronic kidney disease; E03.9 Hypothyroidism, unspecified; E87.6 Hypokalemia; D64.9 Anemia, unspecified; E11.65 Type 2 diabetes mellitus with hyperglycemia; L89.899 Pressure ulcer of other site, unspecified stage; I27.20 Pulmonary hypertension, unspecified; E78.5 Hyperlipidemia, unspecified; F20.9 Schizophrenia, unspecified; G25.3 Myoclonus; I48.91 Unspecified atrial fibrillation; K21.9 Gastro-esophageal reflux disease without esophagitis; R13.10 Dysphagia, unspecified; R65.20 Severe sepsis without septic shock; Z79.899 Other long term (current) drug therapy; Z86.73 Personal history of transient ischemic attack (TIA), and cerebral infarction without residual deficits; Z93.1 Gastrostomy status; Z86.74 Personal history of sudden cardiac arrest; Z99.2 Dependence on renal dialysis; Z88.2 Allergy status to sulfonamides; Z88.8 Allergy status to other drugs, medicaments and biological substances
CPT/HCPCS: 31500; 36415; 36558; 36589; 36600; 49083; 70551; 71045; 74018; 74176; 76705; 76937; 77001; 80048; 80053; 80061; 80202; 80305; 80307; 80320; 80329; 81003; 82140; 82375; 82550; 82805; 82962; 83540; 83550; 83605; 83735; 83880; 84100; 84134; 84145; 84478; 84484; 85014; 85018; 85025; 86705; 86706; 86709; 86803; 86850; 86900; 86920; 86927; 87070; 87106; 87340; 93005; 93971; 94002; 94003; 94640; 99291; A6261; C1725; C1750; C1752; C1769; C9113; J0360; J0690; J0692; J0885; J1450; J1642; J1815; J1940; J2060; J2185; J2248; J2270; J2405; J2543; J2704; J2765; J3370; J3475; J3480; J3490; J7030; J7040; J7050; J7060; J7608; J7611; J7620; P9016; P9017; P9047; Q9963; A4315; G0480